=== PATIENT | male | born 1975 | race Caucasian/White ===

== ENCOUNTER 2023-06-17 08:38 | Outpatient (CLI) | payer BC, SELFPAY | END 2023-06-17 08:39 | disposition home or self-care (01) | PROVIDERS: PCP Family Medicine; Visit Provider Family Medicine | DX: I10 Essential (primary) hypertension (principal); Z13.220 Encounter for screening for lipoid disorders | CPT/HCPCS: 80048; 80061 ==

== ENCOUNTER 2023-06-28 14:01 | Outpatient (CLI) | payer BC, SELFPAY ==
[2023-06-28] MEDS: PERFLUTREN LIPID MICROSPHERES 2 ML VIAL IV (15:00)
[2023-06-28 15:07] VITALS: BP 166/90; PULSE 111; RESP 18
--- NOTE | 2023-06-28 16:27 | W.PM.STED ---
Stress Test Note Date Date of test: 06/28/23 Providers Primary care provider: [facility] Stress test physician: Charlie Ayala Stress Test Note Stress test ordered: Stress Echo Indication for test: Chest pain Stress test medicine: Lars Results discussion: Patient presents for the above test after discussion the risks benefits side effects he would like to proceed, cardiac stress test medical history form is reviewed. Pretest EKG shows normal sinus rhythm with a heart rate of 76 and a blood pressure 130\82, is patient is exercised following Raymundo protocol for total time of 10 minutes 31 seconds. Definity is usedd patient did not develop any subjective symptoms of ischemia, exercised a full-time in test is terminated because of fulfillment of protocol on review of the tracing there is no significant ST wave changes suggestive of ischemia. He recovered normally.. Impression: Negative electrographic portion of stress echo. Follow up suggested: Await echo images clinical correlation with these will be needed, patient left this testing facility in excellent condition, there were no complications.
== END 2023-06-28 15:09 | disposition home or self-care (01) ==
LOC: STRESS 14:02
PROVIDERS: PCP Family Medicine; Visit Provider Family Medicine
DX: R07.9 Chest pain, unspecified (principal)
CPT/HCPCS: 93016; 93325; 93351; Q9957

== ENCOUNTER 2023-10-27 09:31 | Outpatient (CLI) | payer BC, SELFPAY | END 2023-10-27 09:32 | disposition home or self-care (01) | PROVIDERS: PCP Family Medicine; Visit Provider Family Medicine | DX: R53.83 Other fatigue (principal) | CPT/HCPCS: 84403; 84443 ==

== ENCOUNTER 2025-01-15 11:54 | Emergency (ER) | payer BC, SELFPAY ==
--- OUTSIDE RECORDS SUMMARY | 2025-01-11 17:32 | XMS_ITS | Encounter Summary ---
Author Organization [facility] Address [address] [place] [address] Care Team Providers Care Thermocouple Tester Name Role Phone Doctor, No Primary Care Provider Unavailabl e Reason for Referral * (Routine) - Open Specialty Diagnoses / Procedures Referred By Contac t Referred To Contact Procedures Splint Adam Chao PA-C [address] [place] [address] Phone: tel: fax: Referral ID Status Reason Start Date Expiration Date Visits Re quested Visits Authorized [id number] Open 01/12/2025 1 1 NTATION AND MOBILITY INSTRUCTOR * (Routine) - Open Specialty Diagnoses / Procedures Referred By Contac t Referred To Contact Adam Chao PA-C [address] [place] [address] Phone: tel: fax: Referral ID Status Reason Start Date Expiration Date Visits Re quested Visits Authorized [id number] Open 01/12/2025 1 1 Question Answer Specify time frame for follow up? 2 Weeks Comments Please call [phone] to make a follow up appointment with [facility] with Dr. Kebede/Imani Mercedes PA-C NTATION AND MOBILITY INSTRUCTOR * (Routine) - Open Specialty Diagnoses / Procedures Referred By Contac t Referred To Contact Procedures Optimal healing and recovery Adam Chao PA-C [address] [place] [address] Phone: tel: fax: Referral ID Status Reason Start Date Expiration Date Visits Re quested Visits Authorized [id number] Open 01/12/2025 1 1 NTATION AND MOBILITY INSTRUCTOR * (Routine) - Open Specialty Diagnoses / Procedures Referred By Contac t Referred To Contact Procedures Ice Adam Chao PA-C [address] [address] Phone: tel: fax: Referral ID Status Reason Start Date Expiration Date Visits Re quested Visits Authorized [id number] Open 01/12/2025 1 1 NTATION AND MOBILITY INSTRUCTOR * (Routine) - Open Specialty Diagnoses / Procedures Referred By Contac t Referred To Contact Procedures Elevate Adam Chao PA-C [address] [place] [address] Phone: tel: fax: Referral ID Status Reason Start Date Expiration Date Visits Re quested Visits Authorized [id number] Open 01/12/2025 1 1 NTATION AND MOBILITY INSTRUCTOR * (Routine) - Open Specialty Diagnoses / Procedures Referred By Contac t Referred To Contact Procedures Weight bearing restrictions Adam Chao PA-C [address] [place] [address] Phone: tel: fax: Referral ID Status Reason Start Date Expiration Date Visits Re quested Visits Authorized [id number] Open 01/12/2025 1 1 NTATION AND MOBILITY INSTRUCTOR * (Routine) - Open Specialty Diagnoses / Procedures Referred By Contac t Referred To Contact Procedures Pain not relieved by medication Adam Chao PA-C [address] [place] [address] Phone: tel: fax: Referral ID Status Reason Start Date Expiration Date Visits Re quested Visits Authorized [id number] Open 01/12/2025 1 1 NTATION AND MOBILITY INSTRUCTOR * (Routine) - Open Specialty Diagnoses / Procedures Referred By Contac t Referred To Contact Procedures Temperature >101.5 (38.6 degrees Celsius) Adam Chao PA-C [address] [place] [address] Phone: tel: fax: Referral ID Status Reason Start Date Expiration Date Visits Re quested Visits Authorized [id number] Open 01/12/2025 1 1 NTATION AND MOBILITY INSTRUCTOR * PT/OT/ST (Routine) - New Request Specialty Diagnoses / Procedures Referred By Contact Referred To Contact Occupational Therapy Diagnoses Closed head injury, initial encounter Fall from ladder, initial encounter Lizzie Gunter PA-C [address] [place] [address] Phone: tel: fax: [facility] [address] [address] Phone: tel: fax: Referral ID Status Reason Start Date Expiration Date Visits Requested Visits Authorized [id number] New Request Specialty Services Required 1 1 Scheduling Instructions You're not required to be seen at the location specified above. Depending on scheduling, convenience, and availability, you may be seen at a different site. Question Answer Reason for Occupational Therapy Evaluation and Treatment NTATION AND MOBILITY INSTRUCTOR * (Routine) - Open Specialty Diagnoses / Procedures Referred By Contac t Referred To Contact Procedures Return to previous diet Lizzie Gunter PA-C [address] [place] [address] Phone: tel: fax: Referral ID Status Reason Start Date Expiration Date Visits Re quested Visits Authorized [id number] Open 01/12/2025 1 1 NTATION AND MOBILITY INSTRUCTOR * (Routine) - Open Specialty Diagnoses / Procedures Referred By Contac t Referred To Contact Procedures Opioid discharge Lizzie Gunter PA-C [address] [place] [address] Phone: tel: fax: Referral ID Status Reason Start Date Expiration Date Visits Re quested Visits Authorized [id number] Open 01/12/2025 1 1 NTATION AND MOBILITY INSTRUCTOR * (Routine) - Open Specialty Diagnoses / Procedures Referred By Contac t Referred To Contact Diagnoses Closed head injury, initial encounter Fall from ladder, initial encounter Procedures DISCHARGE MATERIAL GIVEN TO YOU BY Lizzie Tovar PA-C [address] [place] [address] Phone: tel: fax: Referral ID Status Reason Start Date Expiration Date Visits Re quested Visits Authorized [id number] Open 01/12/2025 1 1 NTATION AND MOBILITY INSTRUCTOR * (Routine) - Open Specialty Diagnoses / Procedures Referred By Contac t Referred To Contact Procedures No driving Lizzie Gunter PA-C [address] [place] [address] Phone: tel: fax: Referral ID Status Reason Start Date Expiration Date Visits Re quested Visits Authorized [id number] Open 01/12/2025 1 1 NTATION AND MOBILITY INSTRUCTOR * (Routine) - Open Specialty Diagnoses / Procedures Referred By Citlaly rodriguez Referred To Contact Lizzie Gunter PA-C [address] [place] [address] Phone: tel: fax: Rangel Kebede MD [address] [place] [address] [address] [place] [address] Phone: tel: fax: Referral ID Status Reason Start Date Expiration Date Visits Re quested Visits Authorized [id number] Open 01/12/2025 1 1 Question Answer Instructions to follow-up provider elbow fx Comments Follow-up with Dr. Kebede in 2 weeks for your elbow fracture. NTATION AND MOBILITY INSTRUCTOR Reason for Visit * Reason Comments Fall * Inpatient Admission Specialty Diagnoses / Procedures Referred By Citlaly t Referred To Contact Diagnoses Elbow fracture, right, closed, initial encounter Referral ID Status Reason Start Date Expiration Date Visits Re quested Visits Authorized [id number] 1 1 Encounter Details Date Type Department Care Team (Late st Contact Info) Description 01/11/2025 5:32 PM ORIENTATION AND MOBILITY INSTRUCTOR - 01/12/2025 4:13 PM ORIENTATION AND MOBILITY INSTRUCTOR Hospital Encounter W6 [address] [facility] [place] [address] Sol Goodman MD [address] [facility] [address] [place], [place] [address] Flo Lawson MD [address] [place], [place] [address] Accidental fall from ladder Discharge Disposition: Returning Home/Self Care Social History Tobacco Use Types Packs/Day Years Used Date Smoking Tobacco: Every Day Cigarettes Smokeless Tobacco: Never Alcohol Use Standard Drinks/Week Comments Yes 0 (1 standard drink = 0.6 oz pur e alcohol) daily Humiliation, Afraid, Rape, and Kick questionnair e Answer Date Recorded Within the last year, have y ou been afraid of your partner or ex-partner? No 01/11/2025 Within the last year, have y ou been humiliated or emotionally abused in other ways by your partner or ex-partner? No Within the last year, have y ou been kicked, hit, slapped, or otherwise physically hurt by your partner or ex-partner? No 01/11/2025 Within the last year, have y ou been raped or forced to have any kind of sexual activity by your partner or ex-partner? No 01/11/2025 Hunger Vital Sign Answer Date Recorded Within the past 12 months, y ou worried that your food would run out before you got the money to buy more. Never true 01/12/20 25 Within the past 12 months, t he food you bought just didn't last and you didn't have money to get more. Never true 01/11/2025 PRAPARE - Transportation Answer Date Re corded In the past 12 months, has l ack of transportation kept you from medical appointments or from getting medications? No 12/23 In the past 12 months, has l ack of transportation kept you from meetings, work, or from getting things needed for daily living? No 01/11/2025 Housing Stability Vital Sign Answer Mac e Recorded In the last 12 months, was t here a time when you were not able to pay the mortgage or rent on time? No 01/11/2025 In the past 12 months, how m any times have you moved where you were living? 1 01/11/2025 At any time in the past 12 m [facility], were you homeless or living in a jail (including now)? No 01/11/2025 [facility] Utilities Answer Date Recorded In the past 12 months has th e electric, gas, oil, or water company threatened to shut off services in your home? No 01/11/2025 Sex and Gender Information Value Date Recorded Sex Assigned at Not on file Legal Sex Male 5:32 PM ORIENTATION AND MOBILITY INSTRUCTOR Gender Identity Not on file Sexual Orientation Not on file documented as of this encounter Last Filed Vital Signs Vital Sign Reading Time Taken Comments Blood Pressure 164/98 01/12/2025 3:26 PM ORIENTATION AND MOBILITY INSTRUCTOR Pulse 108 01/12/2025 3:26 PM ORIENTATION AND MOBILITY INSTRUCTOR Temperature 36.7 C (98 F) 01/12/2025 3:26 PM ORIENTATION AND MOBILITY INSTRUCTOR Respiratory Rate 20 01/12/2025 3:26 PM ORIENTATION AND MOBILITY INSTRUCTOR Oxygen Saturation 94% 01/12/2025 3:26 PM ORIENTATION AND MOBILITY INSTRUCTOR Inhaled Oxygen Concentration - - Weight 94 kg (207 lb 3.7 oz) 01/12/2025 5:56 AM ORIENTATION AND MOBILITY INSTRUCTOR Height 175.3 cm (5' 9) 01/12/2025 5:56 AM ORIENTATION AND MOBILITY INSTRUCTOR Body Mass Index 30.6 01/12/2025 5:56 AM ORIENTATION AND MOBILITY INSTRUCTOR documented in this encounter Discharge Summaries * Lizzie Gunter PA-C - 01/12/2025 4:13 PM CST HOSPITAL DISCHARGE SUMMARY Patient Name: Simeon Davidson Date of : 1975 Attending Provider: Flo Lawson MD Admission Date: 01/11/2025 Discharge Date: 01/12/2025 He will be discharged to home. DISCHARGE DIAGNOSES: Principal Problem: Accidental fall from ladder Active Problems: Elbow fracture, right, closed, initial encounter Primary hypertension Mild TBI (HCC) Scalp laceration, initial encounter DISCHARGE MEDICATIONS: Medication List START taking these medications acetaminophen 325 mg tablet Commonly known as: TYLENOL Take 3 tablets (975 mg) by mouth every 6 (six) hours. methocarbamoL 500 mg tablet Commonly known as: ROBAXIN Take 1-2 tablets (500-1,000 mg) by mouth every 6 (six) hours as needed. oxyCODONE (immediate release) 5 mg tablet Commonly known as: ROXICODONE Take 1 tablet (5 mg) by mouth every 6 (six) hours as needed. CONTINUE taking these medications K2 PLUS D3 ORAL testosterone cypionate 200 mg/mL Syringe UNKNOWN MEDICATIONS UNKNOWN MEDICATIONS Where to Get Your Medications These medications were sent to [facility] [place] [address] [place] [address] [facility] [address] Hours: Mon-Fri: 7:30AM-6PM / Sat: 9AM-3PM / Sun: 9AM-3PM methocarbamoL 500 mg tablet oxyCODONE (immediate release) 5 mg tablet Information about where to get these medications is not yet available Ask your nurse or doctor about these medications acetaminophen 325 mg tablet FOLLOW UP: Instructions to follow up provider: Rangel Kebede MD Instructions to follow-up provider: elbow fx Follow-up with Dr. Kebede in 2 weeks for your elbow fracture. [facility], [facility] Reason for Occupational Therapy: Evaluation and Treatment You're not required to be seen at the location specified above. Depending on scheduling, convenience, and availability, you may be seen at a different site. PENDING TEST RESULTS: N/A HOSPITAL COURSE: Simeon Davidson is a 49 year-old male with past medical history of hypertension (no meds) who was admitted to [facility] on 01/11/2025 following fall from ladder while puttingup [place] lights sustaining open right olecranon fracture as well as closed head injury. Admitted for orthopedic stabilization, pain conttol and concussion monitoring. No new injuries or complications were identified during his stay. Patient was assessed by physical and occupational therapies and deemed safe to discharge home with support. On day of discharge, patient was tolerating a regular diet, voiding without issue, pain well controlled on oral analgesics, and vitally stable. Patient education and return precautions provided. The patient was discharged in stable condition on 01/12 with instructions to follow up as outlined above. Please see below for detailed hospital course by problem: Accidental fall from ladder Closed head injury Mild TBI CT head negative for intracranial bleed, C/T/L-spine negative for acute fracture. Monitored for post-concussive syndrome. Symptomatic control. Tertiary exam completed. PT/OT. Open Right Olecranon fracture Orthopedic Surgery following, status post I&D and ORIF on 01/12. NWB to RULopez, splint immobilization x 2 weeks. PT/OT. Multimodal pain control. DVT ppx: N/A. Follow-up in 2 weeks. Acute pain due to trauma A multimodal plan that includes acetaminophen can provide effective pain relief. These targets different mechanisms in the central and/or peripheral nervous system and helps reduce or even eliminate the need for opioids. Can provide more effective pain relief vs single-modality plans. Lidoderm patches, Tylenol 1000 mg every 6 hours, Methocarbamol 500-1000 mg every 6 hours, Oxycodone5 mg every 4 hours as needed for Breakthrough Pain Scalp Laceration Repaired in ED on 01/11. Sutures to be removed ~5-7 days (01/18). Bacitracin prn. Past Medical History: Hypertension - no STRING CUTTER medications PROCEDURES: Orthopedic surgery 01/12/2025 1. Irrigation and debridement of open fracture, right olecranon, deepest layer is bone and is excisional 2. Open reduction internal fixation right olecranon fracture COMPLICATIONS IN HOSPITAL: N/A DISCHARGE EXAM: BP 133/78 Pulse 94 Temp 98.2 ??F (36.8 ??C) Resp 17 Ht 5' 9 (1.753 m) Wt 94 kg (207 lb 3.7 oz) SpO2 98% BMI 30.60 kg/m?? Constitutional: well nourished 49 yo male seen resting in bed, no acute distress Neurologic: alert and oriented to person, place, situation and time, GCS 15, Cranial Nerves 2-12 grossly intact, Speech: normal, Plantar-Dorsiflexion: Intact, sensation intact to light touch in all extremities HEENT: Head: atraumatic, Eyes: normal lids and conjuctivae - PER - EOMI Face: Symmetrical Neck: Full ROM, nontender spine to palpation Chest: symmetrical, nontender chest wall to palpation Pulmonary: effort normal on room air, lung sounds clear to auscultation bilaterally Cardiovascular: Heart: regular rhythm, Rate: normal, Peripheral Vascular: dorsalis pedis/radial 2+ Gastrointestinal: Abdominal: soft, nontender to palpation, nondistended Musculoskeletal: RUE: post-op dressing in place, sensation intact above and below, wiggles all digits, hand well perfused, visible compartments remain soft LUE: no deformities, full ROM, strength +5/5, nontender throughout to palpation. Pelvis: nontender bilaterally. RLE: no deformities, full ROM, strength +5/5, nontender throughout to palpation. LLE: no deformities, full ROM, strength +5/5, nontender throughout to palpation. Back: Nontender thoracic and lumbar spines to palpation Integumentary: warm and dry Psych: appropriate mood and affect IMAGING: XR C ARM EXTREMITY RT Final Result impression: 2 images saved. Fluoroscopy time 36 seconds. Imaging guidance provided during open reduction internal fixation surgery along the proximal ulna CT EXTREM UPPER RT W/O CON Final Result IMPRESSION: 1. Comminuted, displaced fracture of the olecranon with large elbow joint effusion. Overlying soft tissue injury with scattered soft tissue gas. No intra- articular gas. 2. Advanced degenerative changes of the elbow. REPORT SIGNED BY DR. Gentry Mayorga CT Trauma Chest / ABD / Pelvis W Contrast Final Result IMPRESSION: 1. Findings consistent with a mild superficial contusion over the mid to lower right anterior abdominal wall with mild subcutaneous edema in this region. No discrete hematoma. 2. Otherwise, no evidence of thoracic, abdominal or pelvic acute traumatic injury. 3. Mild colonic diverticulosis without evidence of acute diverticulitis. REPORT SIGNED BY DR. Singh Vergara CT Reconstruction Spine Lumbar Final Result IMPRESSION: 1. No evidence of a fracture, subluxation or dislocation. 2. Severe degenerative changes at L5-S1. REPORT SIGNED BY DR. Singh Vergara CT Reconstruction Spine Thoracic Final Result IMPRESSION: 1. No evidence of an acute fracture, subluxation or dislocation. 2. Multilevel degenerative changes of the thoracic spine. 3. Old healed left lateral rib fractures. REPORT SIGNED BY DR. SINGH VERGARA XRAY TIBIA FIBULA LEFT Final Result IMPRESSION: Intact left tibia and fibula. REPORT SIGNED BY DR. Austen Gage XRAY WRIST LEFT Final Result IMPRESSION: No definite osseous injuries are seen at the left wrist. REPORT SIGNED BY DR. Austen Gage XRAY ELBOW RIGHT Final Result IMPRESSION: Probable acute, nondisplaced fracture involving the proximal aspect of the olecranon process. REPORT SIGNED BY DR. Austen Gage CT Head W/O Contrast W/O 3D Final Result IMPRESSION: Right frontal scalp soft tissue swelling and laceration. No skull fracture seen. No intracranial bleed. REPORT SIGNED BY DR. Ambrosio Willard CT Spine Cervical W/O Contrast Final Result IMPRESSION: No evidence of cervical spine fracture or subluxation. REPORT SIGNED BY DR. Austen Gage LABS: Recent Labs 01/11/25 1742 HEMOGLOBIN 18.0 PLATELETCT 273 Recent Labs 01/11/25 1739 01/12/25 0502 SODIUM 147* 142 POTASSIUM 4.4 4.3 CHLORIDE -- 112* CARBONDIOXI -- 23 ANIONGAP -- 7.0 GLUCOSE 153* 87 BUNUREANRO -- 12 CREATININE 1.6* 1.41* CALCIUMSERUM -- 8.7 ESTGFRMDRD -- >60.00 Time: over 30 minutes Lizzie Gunter PA-C Trauma & Acute Care Surgery Cosigned by Meka Paige MD at 01/14/2025 9:18 AM ORIENTATION AND MOBILITY INSTRUCTOR NTATION AND MOBILITY INSTRUCTOR NTATION AND MOBILITY INSTRUCTOR documented in this encounter Medications at Time of Discharge acetaminophen (TYLENOL) 325 mg oral tablet Take 3 tablets (975 mg) by mouth every 6 (six) hours. 01/12/2025 methocarbamoL (ROBAXIN) 500 mg oral tablet Take 1-2 tablets (500-1,000 mg) by mouth every 6 (six) hours as needed. 60 tablet 01/13/2025 9:15 AM ORIENTATION AND MOBILITY INSTRUCTOR 01/12/2025 oxyCODONE, immediate release, (ROXICODONE) 5 mg oral tablet Take 1 tablet (5 mg) by mouth every 6 (six) hours as needed. 20 tablet 01/13/2025 9:15 AM ORIENTATION AND MOBILITY INSTRUCTOR 01/12/2025 senna-docusate (SENNA-S) 8.6-50 mg oral tablet Take 1 tablet by mouth once daily. 10 tablet 01/13/2025 9:15 AM ORIENTATION AND MOBILITY INSTRUCTOR 01/12/2025 testosterone cypionate 200 mg/mL IM Syringe Inject 0.6 mL into the muscle two times per week. Tuesday and UNKNOWN MEDICATIONS Take 1 tablet by mouth once daily. Pure Saffron Supplement UNKNOWN MEDICATIONS Take 1 tablet by mouth once daily. Vitamins A,D,K vitamin D3/vitamin K2, MK4, (K2 PLUS D3 ORAL) Take 1 tablet by mouth once daily. Also contains zinc documented as of this encounter Progress Notes * Nathalie Norton RN - 01/12/2025 4:13 PM CST Simeon Davidson 1975 [id number] P: Discharge A: Discharged ambulatory to home at 1613 escorted by spouse I: Discharge information and arrangements included: review of written discharge instructions, review of purpose and side effects of new medication, prescriptions sent with patient, belongings list completed. R:Patient, significant Other expressed understanding of information. NTATION AND MOBILITY INSTRUCTOR * Lizzie Gunter PA-C - 01/12/2025 7:39 AM CST TRAUMA TERTIARY EXAM NOTE LOS: 1 day Patient seen on 01/12/2025 at 7:39 AM. CC/HPI: Accidental fall from ladder INTERVAL HISTORY: Simeon seen post-operatively. Pain controlled. No further injuries upon tertiary exam. He is hoping to discharge home today to see his grandkids. He denies chest pain, shortness of breath, abdominal pain or dysuria. REVIEW OF SYSTEMS: A comprehensive review of systems was negative except for items noted in the interval history. PAST MEDICAL HISTORY: No Change STRING CUTTER MEDICATIONS: Essential STRING CUTTER meds restarted CURRENT MEDS: Current Facility-Administered Medications: saline FLUSH syringe 10 mL, 10 mL, Intravenous, Q8H saline FLUSH syringe 10 mL, 10 mL, Intravenous, PRN [Transfer Hold] saline FLUSH syringe 10 mL, 10 mL, Intravenous, Q8H [Transfer Hold] saline FLUSH syringe 10 mL, 10 mL, Intravenous, PRN [Transfer Hold] acetaminophen (TYLENOL) tablet 650 mg, 650 mg, oral, Q6H D50W IV syringe 25-50 mL, 25-50 mL, Intravenous, PRN [Transfer Hold] HYDROmorphone (Dilaudid) syringe 0.2 mg, 0.2 mg, Intravenous, Q2H PRN [Transfer Hold] HYDROmorphone (DILAUDID) tablet 2 mg, 2 mg, oral, Q4H PRN [Transfer Hold] ketorolac (ToradoL) injection 30 mg, 30 mg, Intravenous, Q6H PRN [Transfer Hold] lidocaine (LMX-4) topical cream 1 Application, 1 Application, topical, PRN [Transfer Hold] lidocaine 1% injection (conc: 10 mg/mL) 0.1-0.3 mL, 0.1-0.3 mL, Intradermal, PRN [Transfer Hold] methocarbamoL (ROBAXIN) tablet 500 mg, 500 mg, oral, QID [Transfer Hold] metoprolol (LOPRESSOR) injection 5 mg, 5 mg, Intravenous, Q6H [Transfer Hold] nicotine (NICOTROL) 14 mg/24 hr patch 1 patch, 1 patch, Transdermal, DAILY [Transfer Hold] ondansetron (Zofran) injection 4 mg, 4 mg, Intravenous, Q12H PRN [Transfer Hold] saline with benzyl alcohol injection 0.1-0.3 mL, 0.1-0.3 mL, Intradermal, PRN [Transfer Hold] sodium chloride 0.9 % IV solution, , Intravenous, CONTINUOUS TERTIARY EXAMINATION: Temp (24hrs), Av ??F (36.7 ??C), Min:97.4 ??F (36.3 ??C), Max:99.1 ??F (37.3 ??C) BP (!) 178/93 Pulse 88 Temp 99.1 ??F (37.3 ??C) Resp 15 Ht 5' 9 (1.753 m) Wt 94 kg (207 lb 3.7 oz) SpO2 95% BMI 30.60 kg/m?? Patient Vitals for the past 72 hrs: Weight 01/12/25 0556 94 kg (207 lb 3.7 oz) 01/11/25 2152 94 kg (207 lb 3.7 oz) Constitutional: well nourished 49 yo male seen resting in bed, no acute distress Neurologic: alert and oriented to person, place, situation and time, GCS 15, Cranial Nerves 2-12 grossly intact, Speech: normal, Plantar-Dorsiflexion: Intact, sensation intact to light touch in all extremities HEENT: Head: atraumatic, Eyes: normal lids and conjuctivae - PER - EOMI Face: Symmetrical Neck: Full ROM, nontender spine to palpation Chest: symmetrical, nontender chest wall to palpation Pulmonary: effort normal on room air, lung sounds clear to auscultation bilaterally Cardiovascular: Heart: regular rhythm, Rate: normal, Peripheral Vascular: dorsalis pedis/radial 2+ Gastrointestinal: Abdominal: soft, nontender to palpation, nondistended Musculoskeletal: RUE: post-op dressing in place, sensation intact above and below, wiggles all digits, hand well perfused, visible compartments remain soft LUE: no deformities, full ROM, strength +5/5, nontender throughout to palpation. Pelvis: nontender bilaterally. RLE: no deformities, full ROM, strength +5/5, nontender throughout to palpation. LLE: no deformities, full ROM, strength +5/5, nontender throughout to palpation. Back: Nontender thoracic and lumbar spines to palpation Integumentary: warm and dry Psych: appropriate mood and affect Wound: Traumatic Laceration Right Face;Forehead (Active) First Observed/Origin Date/First Observed/Origin Time: 01/11/252149 Primary Wound Type: Traumatic Trauma/Injury Type: Laceration Orientation: Right Location: Face;Forehead Wound: Traumatic Abrasion Anterior;Left Hand (Active) First Observed/Origin Date/First Observed/Origin Time: 01/11/252151 Primary Wound Type: Traumatic Trauma/Injury Type: Abrasion Orientation: Anterior;Left Location: Hand Wound: Traumatic Abrasion Right Dill (Active) First Observed/Origin Date/First Observed/Origin Time: 01/11/252151 Primary Wound Type: Traumatic Trauma/Injury Type: Abrasion Orientation: Right Location: Dill Wound: Traumatic Abrasion Left;Posterior Finger (Active) First Observed/Origin Date/First Observed/Origin Time: 01/11/252151 Primary Wound Type: Traumatic Trauma/Injury Type: Abrasion Orientation: Left;Posterior Location: Finger Wound: Traumatic Abrasion Left Dill (Active) First Observed/Origin Date/First Observed/Origin Time: 01/11/252154 Primary Wound Type: Traumatic Trauma/Injury Type: Abrasion Orientation: Left Location: Dill Intake/Output Summary (Last 24 hours) at 01/12/2025 0739 Last data filed at 01/12/2025 0625 Gross per 24 hour Intake 926.56 ml Output -- Net 926.56 ml RECENT LABS: Recent Labs 01/11/25 1742 HEMOGLOBIN 18.0 PLATELETCT 273 Recent Labs 01/11/25 1739 01/12/25 0502 SODIUM 147* 142 POTASSIUM 4.4 4.3 CHLORIDE -- 112* CARBONDIOXI -- 23 ANIONGAP -- 7.0 GLUCOSE 153* 87 BUNUREANRO -- 12 CREATININE 1.6* 1.41* CALCIUMSERUM -- 8.7 ESTGFRMDRD -- >60.00 IMAGING: CT EXTREM UPPER RT W/O CON Final Result IMPRESSION: 1. Comminuted, displaced fracture of the olecranon with large elbow joint effusion. Overlying soft tissue injury with scattered soft tissue gas. No intra- articular gas. 2. Advanced degenerative changes of the elbow. REPORT SIGNED BY DR. Gentry Mayorga CT Trauma Chest / ABD / Pelvis W Contrast Final Result IMPRESSION: 1. Findings consistent with a mild superficial contusion over the mid to lower right anterior abdominal wall with mild subcutaneous edema in this region. No discrete hematoma. 2. Otherwise, no evidence of thoracic, abdominal or pelvic acute traumatic injury. 3. Mild colonic diverticulosis without evidence of acute diverticulitis. REPORT SIGNED BY DR. Singh Vergara CT Reconstruction Spine Lumbar Final Result IMPRESSION: 1. No evidence of a fracture, subluxation or dislocation. 2. Severe degenerative changes at L5-S1. REPORT SIGNED BY DR. Singh Vergara CT Reconstruction Spine Thoracic Final Result IMPRESSION: 1. No evidence of an acute fracture, subluxation or dislocation. 2. Multilevel degenerative changes of the thoracic spine. 3. Old healed left lateral rib fractures. REPORT SIGNED BY DR. SINGH VERGARA XRAY TIBIA FIBULA LEFT Final Result IMPRESSION: Intact left tibia and fibula. REPORT SIGNED BY DR. Austen Gage XRAY WRIST LEFT Final Result IMPRESSION: No definite osseous injuries are seen at the left wrist. REPORT SIGNED BY DR. Austen Gage XRAY ELBOW RIGHT Final Result IMPRESSION: Probable acute, nondisplaced fracture involving the proximal aspect of the olecranon process. REPORT SIGNED BY DR. Austen Gage CT Head W/O Contrast W/O 3D Final Result IMPRESSION: Right frontal scalp soft tissue swelling and laceration. No skull fracture seen. No intracranial bleed. REPORT SIGNED BY DR. Ambrosio Willard CT Spine Cervical W/O Contrast Final Result IMPRESSION: No evidence of cervical spine fracture or subluxation. REPORT SIGNED BY DR. Austen Gage ETOH SCREENING: ETOH Level Alcohol (ETOH), Plasma Collection Time: 01/11/25 5:42 PM Result Value ALCOHOL (ETOH), PLASMA <3 No data recorded Do you drink alcohol? yes AUDIT-C Questionnaire 1. How often do you have a drink containing alcohol? 2-4 times a month = 2 points 2. How many standard drinks containing alcohol do you have on a typical day? 1 or 2 = 0 points 3. How often do you have six or more drinks on one occasion? Never = 0 points Total: 2 (Positive Screen: Women >= 3, Men >= 4 (Note: if all points come from question 1 then this isconsidered a NEG screen) SBIRT complete Acute Stress Disorder screening using PC-PTSD-5 Since the incident have you: Had nightmares about the event(s) or thoughts about the event(s) when you did not want to? no Tried hard not to think about the event(s) or went out of your way to avoid situations that reminded you of the event(s)? no Been constantly on guard, watchful, or easily startled? no Hume numb or detached from people, activities, or your surroundings? no Hume guilty or unable to stop blaming yourself or others for the event(s) or any problems the events may have caused? no (Positive screening: YES to any question(s), recommend psychology consult. Negative screening: NO to all questions) Education was provided. Mental Health Services consult negative screen ADDITIONAL COMMENTS: I reviewed the patient's new clinical labs and imaging test results as included in this note. I discussed the patient's care with bedside RN Nathalie at 1000, Social Work, W Kacie charge nurse. I have seen this patient and discussed my findings and exam with Dr. Paige. The assessment and plan is based on our joint decision making. ASSESSMENT/PLAN: Simeon Davidson is a 49 year-old male with past medical history of hypertension (no meds) who was admitted to [facility] on 01/11/2025 following fall from ladder while puttingup [employer] lights sustaining open right olecranon fracture as well as closed head injury. Admitted for orthopedic stabilization, pain conttol and concussion monitoring. Accidental fall from ladder Closed head injury Mild TBI CT head negative for intracranial bleed, C/T/L-spine negative for acute fracture. - Monitor for post-concussive syndrome - Symptomatic control - Tertiary exam completed - PT/OT Open Right Olecranon fracture - Orthopedic Surgery following, status post I&D and ORIF on 01/12 - NWB to ALEX, splint immobilization x 2 weeks - PT/OT - Multimodal pain control - DVT ppx: N/A - Follow-up in 2 weeks Acute pain due to trauma A multimodal plan that includes acetaminophen can provide effective pain relief. These targets different mechanisms in the central and/or peripheral nervous system and helps reduce or even eliminate the need for opioids. Can provide more effective pain relief vs single-modality plans. - Lidoderm patches - Tylenol 1000 mg every 6 hours - Methocarbamol 500-1000 mg every 6 hours - Oxycodone 5 mg every 4 hours as needed for Breakthrough Pain Scalp Laceration Repaired in ED on 01/11 - Sutures to be removed ~5-7 days (01/18) - Bacitracin prn Past Medical History: Hypertension - no STRING CUTTER medications Lines: PIV Fluids/Electrolytes/Nutrition: NPO Ulcer Prophylaxis: None indicated Bowel Medications: Senna-S and Miralax LBM: No data recorded Cardoza: No DVT Prophylaxis: Mechanical, Mobilize Restraints: Not indicated Wounds/Skin Care: Local and preventative cares per Pressure Injury Prevention nursing protocols Antibiotics: perioperative Family Communication: Patient denied need for Trauma to call update to family. All questions were answered to best of my ability. No concerns at that time. Incidental Findings: N/A Follow up tertiary exam: Not required, patient responsive and able to participate in clinical exam Disposition: Criteria for Discharge: specalist clearance, pain control on PO, tolerating diet, therapy recommendations Post Hospital Plan: probably home later today vs tomorrow 01/13 am Lizzie Gunter PA-C Trauma & Acute Care Surgery NTATION AND MOBILITY INSTRUCTOR * Venkat Dotson RN - 01/12/2025 3:21 AM CST Med-Surg Care Progression Note Type: Shift to shift summary Length of stay: 1 days Code Status: Full Code Primary Problem: Fall from a lader, R face lac, R Elbow fx Summary: F- Feeding & Fluids: tolerating regular diet, thin liquids. NPO since midnight . Going to OR [id number] with ortho. A- Analgesic & Anticoagulation: Comfort Goal: Numeric, Verbal, Faces: 3 Analgesic Robaxin given x1. Declined scheduled tylenol, pt reported tolerable pain and does not like taking pain meds unless he is in severe pain. Anticoagulation/DVT prevention & plan SCDs S- Skin: Total Coy Score: 19: Lac to R scalp sutured in ED, dressing applied. Abrasions to bilatlower extremities and L hand-see pictures. Pt is able to reposition self in bed. T- Telemetry: No tele. Has scheduled IV metoprolol for HTN. E- Emotional & Neuro: Participating in cares Neuro Alert and Oriented R- Respiratory: On room air, on continuous pulseoximetry per orders. H- Head OUT of Bed & Activity: Activate Fall Alert? (Enter 1 or 0): 1 Ambulating with SBA with RUE sling, U- Urologic/bowel: No data recorded voiding in the toilet without difficult. G- Glycemic Control: Not applicable T- Treatment: Pain control, OR in am for ORIF of R elbow. I- Invasive Devices: PIV x2 D- Discharge: TBD Venkat Dotson, RN NTATION AND MOBILITY INSTRUCTOR NTATION AND MOBILITY INSTRUCTOR * Venkat Dotson RN - 01/11/2025 9:55 PM CST P. Admission A. Condition on Admit: alert. Patient/Family Concerns: Patient expressed concern about pain relief . I. Initial Interventions included: administered medication for pain. Orientation to Unit: Patient, spouse, friend oriented to how to call for help, name of assigned intensive care ambulance paramedic, Patient Information booklet, initial physician orders, hourly rounding procedures, belongings checklist, unit and plan of care. R. Patient, spouse, friend expressed understanding of information.. NTATION AND MOBILITY INSTRUCTOR documented in this encounter H&P Notes * Flo Lawson MD - 01/11/2025 6:00 PM CST TRAUMA ADMISSION HISTORY AND PHYSICAL Patient Name: Simeon Davidson Address: No address on file. Age:49 y.o. Sex: male Admission Date/Time: 01/11/2025 5:32 PM Admitting provider: No admitting provider for patient encounter. Hospital Attending Physician: Sol Goodman MD Primary Care Provider: No primary care provider on file. Informant: patient and outpatient record Patient seen on 01/11/2025 at 545 pm. 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 Did not stop at outside facility we had advance notificationfor partial trauma activation. Hemodynamically hypertensive en route treated with IV narcotic for pain control of right elbow. Amnestic to event remembers going to shed to pull out ladder. He thinks it is Tuesday (Tuesday) was planing on putting up [place] lights. Does not remember eating today or last meal. Asks not to have any more pain medication. By report fall from 8 feet, very confused at first then more clear as time went on. Left wrist in splint due to deformity at scene. Denies drinking or smoking. Right wrist splint and wrapping Taken down I do not see laceration , or gross abnormality on quick exam. Right elbow pain. Mid upper back pain. Patient comes in full spine precautions. Denies neck pain,, double vision , N/ V headache. Laceration forehead a scene rendered hemostatic with wrapping. Due to confusion and lucid interval concern for epidural so expedited trauma primary secondary survey done and taken emergently to CT scan I accompanied patient as at this point at risk for life threatening deterioration , intracranial bleed suspected due to 8 foot fall , head lacerationconfusion , altered mental status at scene, improved ., but amnestic. On taking down wrap ancef given for deep laceration. REVIEW OF SYSTEMS GENERAL: no fevers or chills, awake and interactive HEENT: no malocclusion, no changes with vision, no difficulty swallowing No neck pain, forehead pain CARDIOVASCULAR: denies chest pain, denies angina or palpitations, denies dyspnea on exertion PULMONARY: no SOB, no history of asthma, non-smoker MSK- upper back pain, right elbow pain GI: denies abdominal pain : no dysuria, hematuria SKIN: forehead laceration hemostatic with wrap. HEME: no history of blood product transfusions, no clotting or bleeding disorders ENDOCRINE: no history of diabetes or thyroid problems NEURO: no history of seizures, no headaches, no neurologic disorders Last Oral Intake: Unknown Last Tetanus: Tetanus status unknown to the patient given update PAST MEDICAL HISTORY Hypertension not treated PAST SURGICAL HISTORY NOS drainage abscess MEDICATIONS denies ALLERGIES Patient has no known allergies. FAMILY HISTORY Patient denies family history of bleeding or clotting disorder, no known complications from anesthesia SOCIAL HISTORY Social History Socioeconomic History Marital status: Not on file Spouse name: Not on file Number of children: Not on file Years of education: Not on file Highest education level: Not on file Occupational History Not on file Tobacco Use Smoking status: Not on file Smokeless tobacco: Not on file Substance and Sexual Activity Alcohol use: Not on file Drug use: Not on file Sexual activity: Not on file Other Topics Concern Not on file Social History Narrative Not on file Social Drivers of Health Food Insecurity: Not on file Transportation Needs: Not on file Intimate Partner Violence: Not on file Housing Stability: Not on file PHYSICAL EXAM PHYSICAL EXAM BP (!) 210/126 Pulse (!) 108 Temp 97.7 ??F (36.5 ??C) Resp (!) 28 SpO2 94% There is no height or weight on file to calculate BMI. GCS 15 AIRWAY patient controlled GENERAL: appears healthy, NAD , able to complete sentences without catching breath LUNGS: No dyspnea, clear bilat CV: sinus , regular rate PULSES: radial pulses strong and symmetric, Posterior tibialis palpable and symmetric Capillary refill < 2 seconds in nailbeds of fingers HEENT:3.5 cm laceration cruciate with second 2 cm and third 3 cm laceration forehead, no Maria's sign, No [place] eyes, no scleral icterus, PERRL slightly constricted from EMS narcotic presumably, mucosa moist, no dental injury noted, no tongue laceration NECK: Cervical collar inplace, trachea midline, no subcutaneous emphysema- after CT scan collar removed full range of motion without pain ABDOMEN: Non distended, soft, non-tender, no peritoneal signs, no hernias, no surgical scars, no bruising LOGROLL with C spine precautions, tender upper back T8 region, not soft no bruising no step off EXTREMITIES: right elbow slightly mabel position of comfort very tender, in pain without palpation, denies want of narcotic SKIN: warm and dry, no jaundice, no rashes NEURO: Cranial nerves II-XII grossly intact, alert and oriented, hand grasp is strong and symmetric, plantar flexion and plantar dorsiflexion intact and stong bilaterally PSYCH: appropriate mood and affect Laboratory Data Results for orders placed or performed during the hospital encounter of 01/11/25 (from the past 24 hours) POCT VBG/Na/K/Glu Result Value Ref Range POCT pH Venous 7.33 7.30 - 7.40 POCT pCO2 Venous 47 36 - 51 mm Hg POCT pO2 Venous 49 (H) 35 - 45 mm Hg POCT HCO3 VENOUS 25 22 - 29 mmol/L POCT BASE EXCESS -2.0 -3.0 - 2.0 mmol/L POCT CSO2 81.0 (L) 92.0 - 98.0 %SAT POCT cTCO2 26.0 mmol/L POCT SODIUM 147 (H) 133 - 144 mmol/L POCT POTASSIUM 4.4 3.5 - 5.0 mmol/L POCT Glucose 153 (H) 60 - 100 mg/dL POCT Ca, Ionized Result Value Ref Range POCT CA IONIZED 1.31 1.13 - 1.32 mmol/L POCT Lac Result Value Ref Range POCT LACTIC ACID 1.1 0.7 - 2.1 mmol/L POCT CREATININE Result Value Ref Range POCT Creatinine 1.6 (H) 0.7 - 1.3 mg/dL POCT Chloride Result Value Ref Range POCT CHLORIDE 108 99 - 111 mmol/L Hemoglobin Result Value Ref Range Hemoglobin 18.0 14.0 - 18.0 gm/dL Platelet Count Result Value Ref Range Platelet Count 273 150 - 400 K/UL Additional Comments: Went with patient to CT scan Ct head no extra-axial blood no skull fracture' C spine no fracture Great vessels without injury I see no fracture over spine where tender, no acute rib fracture agree with official read 1. No evidence of an acute fracture, subluxation or dislocation. 2. Multilevel degenerative changes of the thoracic spine. 3. Old healed left lateral rib fractures. No solid organ injury, bowel edema on findings worrisome for major abdominal or pelvic trauma Xray Right Elbow; nondisplaced fracture extending through the posterior/proximal aspect of the olecranonprocess Left wrist - no fracture seen Left tibia and fibula without fracture ASSESSMENT/DIFFERENTIAL DIAGNOSIS Mild TBI concussion from fall hitting head, 8 feet from ladder Change in mental status improving , amnestic to event Scalp laceration - this will be washed out and treated with ancef and tetanus update and plan to close in ED Right elbow fracture Called mail caller orthopedist Dr Kebede, reviewed images old changes likely from wrestling injury bad dislocation remote and acute fracture plan for admission an operative evaluation with CT scan not clearly needs operative intervention on plain films, Dr. Kebede to coordinate CT I will admit p atient for observation NPO after MN Hypertension , pain control multimodal, beta keisha PLAN Admit to the Trauma Service to Floor CT to evaluate right elbow care plan It is expected the patient will need to be admitted for two nights given injuries sustained and ongoing evaluation and treatment plans. DVT Prophylaxis: mechanical Ulcer Prophylaxis: None indicated Restraints: Not indicated Pain Management: Narcotics - Oral, NSAIDS, Other Tylenol, Toradol Sedation: none Warming Techniques: passive Family Conference: family not available Update Called To: NA scene run Time: 75 minutes spent on patient evaluation, explaining injuries and plan and coordinating cares This patient was evaluated in the stabilization room as a tier 2 trauma activation. While the emergency room physician monitored the airway and performed the primary survey, I as the trauma surgeon guided the resuscitation, assessed the need for emergent and potentially life-saving procedures, including the possibility of proceeding directly to the operating room. Patient was high risk for intracranial bleed due to presentation and I remained with patient until that threat which is potentially life-threatening was fully assessed, including to imaging room. My critical care time also included determination of imaging and ancillary studies, medication management, appropriate consultation withsurgical specialty services, and frequent reassessment of the patient for response to interventionsas well as for the possibility of sudden, clinically significant deterioration in the patient's condition. Flo Lawson MD NTATION AND MOBILITY INSTRUCTOR documented in this encounter Consult Notes * Rangel Kebede MD - 01/12/2025 9:29 AM CSTAssociated Order(s): CONSULT ORTHOPEDIC SURGERY ORTHOPEDIC SURGERY CONSULT Patient Name: Simeon Davidson Address: [address] [place] [address] Age: 49 y.o. Sex: male Admission Date/Time: 01/11/2025 5:32 PM Primary Care Provider: Doctor, Deisi Informant: patient CHIEF COMPLAINT: Right elbow pain, fall from ladder HPI: This is a 49-year-old man who presents to the hospital after a fall from a ladder while he was putting up [employer] lights. He is about 8 to 10 feet up. He complains mostly of right elbow pain but also some left wrist pain as well. He is found to have open fracture of his right olecranon. He was evaluated and admitted by the trauma service. He was given Ancef and tetanus. The elbow was splinted. His pain is controlled at rest. He has no numbness or tingling. He is right-hand dominant. 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 PAST MEDICAL HISTORY: No past medical history on file. PAST SURGICAL HISTORY: No past surgical history on file. PRIOR TO ADMISSION MEDICATIONS: Prior to Admission Medications Prescriptions Last Dose Informant Patient Reported? Taking? UNKNOWN MEDICATIONS 01/11/2025 Morning Family Yes Yes Sig: Take 1 tablet by mouth once daily. Pure Saffron Supplement UNKNOWN MEDICATIONS 01/11/2025 Morning Family Yes Yes Sig: Take 1 tablet by mouth once daily. Vitamins A,D,K testosterone cypionate 200 mg/mL IM Syringe 01/10/2025 Family Yes Yes Sig: Inject 0.6 mL into the muscle two times per week. Tuesday and vitamin D3/vitamin K2, MK4, (K2 PLUS D3 ORAL) 01/11/2025 Morning Family Yes Yes Sig: Take 1 tablet by mouth once daily. Also contains zinc Facility-Administered Medications: None ALLERGIES: Patient has no known allergies. FAMILY HISTORY: No family history on file. SOCIAL HISTORY: Social History Socioeconomic History Marital status: Spouse name: Not on file Number of children: Not on file Years of education: Not on file Highest education level: Not on file Occupational History Not on file Tobacco Use Smoking status: Every Day Types: Cigarettes Smokeless tobacco: Never Substance and Sexual Activity Alcohol use: Yes Comment: daily Drug use: Not Currently Sexual activity: Not on file Other Topics Concern Not on file Social History Narrative Not on file Social Drivers of Health Food Insecurity: No Food Insecurity (01/11/2025) Hunger Vital Sign Worried About Running Out of Food in the Last Year: Never true Ran Out of Food in the Last Year: Never true Transportation Needs: No Transportation Needs (01/11/2025) PRAPARE - Transportation Lack of Transportation (Medical): No Lack of Transportation (Non-Medical): No Intimate Partner Violence: Not At Risk (01/11/2025) Humiliation, Afraid, Rape, and Kick questionnaire Fear of Current or Ex-Partner: No Emotionally Abused: No Physically Abused: No Sexually Abused: No Housing Stability: Low Risk (01/11/2025) Housing Stability Vital Sign Unable to Pay for Housing in the Last Year: No Number of Times Moved in the Last Year: 1 Homeless in the Last Year: No REVIEW OF SYSTEMS: A comprehensive review of systems was negative except for items noted in the HPI/Subjective: Otherwise a comprehensive ROS is negative. PHYSICAL EXAM: BP (!) 178/93 Pulse 88 Temp 99.1 ??F (37.3 ??C) Resp 15 Ht 5' 9 (1.753 m) Wt 94 kg (207 lb 3.7 oz) SpO2 95% BMI 30.60 kg/m?? General appearance: awake and alert HEENT: NCAT RESPIRATORY: Nonlabored respirations on room air CARDIOVASCULAR: Extremities WWP, pulses palpable SKIN: intact, warm, dry PSYCHOLOGICAL/JUDGEMENT: intact/normal Extremities: Exam of the right elbow reveals that he is in a long-arm splint. Sensation and motor function intact median radial ulnar nerves. No tenderness over the shoulder or fingers. Exam of the left wrist shows that there is tenderness and swelling on the wrist but he is able to flex and extendthe wrist and fingers without appreciable deficit. Neuro vastly intact. PROCEDURES: N/A IMAGING: Reviewed x-rays and CT scan of the right elbow which demonstrates a comminuted olecranon fracture with surrounding gas suggesting open fracture. Fracture is minimally displaced but there is comminution of a portion of the articular surface. 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 I also reviewed x-rays of the patient's left wrist. No fractures dislocations or malalignment is seen. LABS: Results for orders placed or performed during the hospital encounter of 01/11/25 (from the past 24 hours) POCT VBG/Na/K/Glu Result Value Ref Range POCT pH Venous 7.33 7.30 - 7.40 POCT pCO2 Venous 47 36 - 51 mm Hg POCT pO2 Venous 49 (H) 35 - 45 mm Hg POCT HCO3 VENOUS 25 22 - 29 mmol/L POCT BASE EXCESS -2.0 -3.0 - 2.0 mmol/L POCT CSO2 81.0 (L) 92.0 - 98.0 %SAT POCT cTCO2 26.0 mmol/L POCT SODIUM 147 (H) 133 - 144 mmol/L POCT POTASSIUM 4.4 3.5 - 5.0 mmol/L POCT Glucose 153 (H) 60 - 100 mg/dL POCT Ca, Ionized Result Value Ref Range POCT CA IONIZED 1.31 1.13 - 1.32 mmol/L POCT Lac Result Value Ref Range POCT LACTIC ACID 1.1 0.7 - 2.1 mmol/L POCT CREATININE Result Value Ref Range POCT Creatinine 1.6 (H) 0.7 - 1.3 mg/dL POCT Chloride Result Value Ref Range POCT CHLORIDE 108 99 - 111 mmol/L Hemoglobin Result Value Ref Range Hemoglobin 18.0 14.0 - 18.0 gm/dL Platelet Count Result Value Ref Range Platelet Count 273 150 - 400 K/UL Protime/INR Result Value Ref Range INR 1.0 0.9 - 1.2 Type and Screen Result Value Ref Range Group and Rh O Positive Antibody Screen Negative Alcohol (ETOH), Plasma Result Value Ref Range ALCOHOL (ETOH), PLASMA <3 <3 mg/dL ABORh Confirm (Lab Use Only) Result Value Ref Range Group and Rh O Positive EKG Result Value Ref Range EKG Basic Metab Profile Result Value Ref Range Sodium 142 136 - 145 mmol/L Potassium 4.3 3.4 - 5.1 mmol/L Chloride 112 (H) 98 - 108 mmol/L Carbon Dioxide 23 20 - 31 mmol/L BUN (Urea Nitro) 12 9 - 23 mg/dL Creatinine 1.41 (H) 0.73 - 1.18 mg/dL Est GFR (CKD-EPI) >60.00 >60.00 mL/min/1.73m2 Glucose 87 74 - 106 mg/dL Calcium, Serum 8.7 8.7 - 10.4 mg/dL Anion Gap 7.0 0.0 - 15.0 mmol/L ASSESSMENT: This is a 49 y.o. male with a grade 1 open right olecranon fracture Principal Problem: Accidental fall from ladder Active Problems: Elbow fracture, right, closed, initial encounter Primary hypertension Mild TBI (HCC) Scalp laceration, initial encounter PLAN: I recommend proceeding to the operating room urgently for irrigation debridement of the open fracture with open reduction internal fixation. Risk benefits alternatives of the surgery were discussed at length with the patient. He agrees to proceed. He received Ancef and tetanus in the emergency room. He will need to stay for the rest of the day for IV antibiotics but can be discharged home this evening after surgery. He has been cleared for the operating room by the trauma service. DVT prophylaxis: None needed from orthopedic perspective Will Kebede MD Orthopedic Trauma [facility] NTATION AND MOBILITY INSTRUCTOR documented in this encounter Nursing Notes * Koppel, Nathalie C, RN - 01/12/2025 2:46 PM CST Problem: Falls/Injury-Risk of Goal: Absence of Falls/Injury Outcome: Met this shift Flowsheets Taken 01/12/2025 0115 by Venkat Dotson RN Environmental Safety Interventions: Standard Interventions in Place Mobility Safety Interventions: Standard Interventions in Place Elimination Safety Interventions: Standard Interventions in Place Taken 01/11/2025 1834 by Betty Ruvalcaba RN Medication: Standard Interventions in Place Note: No falls. Problem: Communication Goal: Demonstrates/exhibits ability to communicate needs effectively Outcome: Met this shift Note: Uses call light appropriately to make wants and needs known. Problem: Venous Thromboembolism (VTE) Goal: Absence of venous thromboembolism (VTE) Outcome: Met this shift NTATION AND MOBILITY INSTRUCTOR * Archana Garcia RN - 01/12/2025 10:[address] Rice updated regarding BP. No orders in PACU to treat. Report given to 6W RN Lungs clear, sats 97% on RA Dressing to right arm D/I, ice on CMS good Patient meets criteria to be transferred to 6W NTATION AND MOBILITY INSTRUCTOR * Kaley Samuels RN - 01/12/2025 7:17 AM CST Pt's Nubia arrived. Pt's cell phone given to Nubia. Dr. Rice updated regarding nicotine patch and elevated blood pressure. No new orders . Kaley Samuels RN NTATION AND MOBILITY INSTRUCTOR * Kaley Samuels RN - 01/12/2025 6:49 AM CST Pt received into PIR this AM in anticipation of surgery with Dr. Kebede. Pt comes with his cell phone. Pt states his is on the way. If she does not arrive before pt goes in for surgery his cell phone will be locked up in PIR. Pt has a nicotine patch on his right shoulder. The MAR states that this patch has been discontinued. Awaiting Dr. Kebede. Kaley Pitt NTATION AND MOBILITY INSTRUCTOR * Venkat Dotson RN - 01/11/2025 11:35 PM CST Problem: Falls/Injury-Risk of Goal: Absence of Falls/Injury Outcome: Met this shift NTATION AND MOBILITY INSTRUCTOR documented in this encounter OR Notes * OR Surgeon - Rangel Kebede MD - 01/12/2025 8:23 AM CST ORTHOPEDIC OPERATIVE REPORT PREOPERATIVE DIAGNOSIS: Open right olecranon fracture POSTOPERATIVE DIAGNOSIS: Same PROCEDURE: 1. Irrigation and debridement of open fracture, right olecranon, deepest layer is bone and is excisional 2. Open reduction internal fixation right olecranon fracture SURGEON: Rangel Kebede MD TOOL DESIGN DRAFTSPERSON: Primo Spain PA-C, whose assistance was required for positioning, prep/drape, exposure, debridement, application of internal fixation, and closure ANESTHESIA: General ESTIMATED BLOOD LOSS: 20 cc TOURNIQUET TIME: About 30 minutes@ 250 mmHg COMPLICATIONS: None SPECIMENS: None IMPLANTS: Implant Name Type Inv. Item Serial No. Processing Lead Lot No. LRB No. Used Action PL 2.7/3.5 PROX OLECR 2H/R/73M - [id number] Plate PL 2.7/3.5 PROX OLECR 2H/R/73M [employer] Right 1 Implanted SCREW 2.7MM VA LCK SLF-TP 28MM - [id number] Screw/[place] SCREW 2.7MM VA LCK SLF- TP 28MM [employer] Right 1 Implanted SCREW 2.7MM VA LCK SLF-TP 34MM - [id number] Screw/[place] SCREW 2.7MM VA LCK SLF- TP 34MM [employer] Right 1 Implanted SCR 2.7 METPHYSEAL SLF-TP 56MM - [id number] Screw/[place] SCR 2.7 METPHYSEAL SLF- TP 56MM [employer] Right 1 Implanted SCREW 2.7MM VA LCK SLF-TP 12MM - [id number] Screw/[place] SCREW 2.7MM VA LCK SLF- TP 12MM [employer] Right 1 Implanted SCR SYN CRTX S/T3.07/16 204.826 - [id number] Screw/[place] SCR SYN CRTX S/T3.07/16 204.826 [employer] Right 1 Implanted SCR SYN CRTX S/T3. 204.834 - [id number] Screw/[place] SCR SYN CRTX S/T3. 204.834 [employer] Right 1 Implanted INDICATIONS: Patient is a [id number] 49-year-old man who fell off a ladder and sustained an open right olecranon fracture. He received Ancef and tetanus upon admission last evening. He was then admitted. CT scan demonstrates some comminution of the articular surface. 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 Given the open fracture and the displacement of the articular surface, I recommended irrigation and debridement as well as open reduction internal fixation. Risks of surgery were discussed at length including but not limited to bleeding, infection, damage nerves and blood vessels, failure of fixation, nonunion, malunion, elbow stiffness, symptomatic hardware which may require removal, as well as medical risk of anesthesia. He understands and agrees to proceed. Consent was obtained. PROCEDURE IN DETAIL: Patient was brought to the operating room. General anesthesia was obtained. Hewas then carefully positioned in the prone position on gel rolls. There was appropriate padding of all bony surfaces. The right arm was then prepped and draped in normal sterile fashion and placed over the bolster. Timeout was taken, preoperative Ancef was given, everyone agreed. I exsanguinated the limb and then raised the tourniquet. There was a relatively complex wound along the posterior aspect of the elbow. I excised the central portion of the skin flap which was dusky and nonviable. This was about a centimeter in diameter. I then made an incision proximal and distal connecting with to the wound. I exposed the fracture site. I debrided it with a curette as well as a rongeur. I then irrigated 3 L of normal saline into the fracture site. We then switched our gloves and had a new set ofinstruments as we went from a dirty to a clean set up. I then was able to clamp the fracture reduced anatomically, verified fluoroscopically. I then split the triceps tendon in the midline with the Bovie electrocautery to allow the plate to sit directly on the bone. I then positioned the plate appropriately. I fixed it distally in the shaft with a cortical screw. I then placed a homerun screw from the tip of the olecranon under the articular surface to the anterior aspect of the proximal ulna. This was a cortical screw and compressed the plate down to the bone nicely, securing the fracture. Cherylen placed an additional 2 screws within the diaphysis and distal to the ulnohumeral joint. I thenplaced 2 additional screws within the proximal part of the elbow to secure the comminuted tip of the olecranon process. I ran a 2 oh Krak??w with FiberWire suture and I tied this to the plate within the triceps tendon as well. I then took final fluoroscopic imaging. I was pleased with reduction of fixation. Tourniquet was let down hemostasis was achieved. I then placed a gram of vancomycin powderand 1.2 g of tobramycin powder around the plate. I closed the small split within the triceps tendonwith 0 Vicryl suture. I then closed some of the subcutaneous fatty tissue with 0 Vicryl, the dermallayer was closed with buried 2-0 Vicryl followed by chandni and 3-0 nylon for the skin. A sterile soft dressing was then placed followed by a well-padded posterior long-arm splint. Patient was then awoke from anesthesia, transferred to operative table, taken the PACU in stable condition. All spongeneedle counts were reported as correct. There were no immediate complications. POST-OPERATIVE PLAN: Activity: Nonweightbearing right upper extremity, splint immobilization x 2 weeks Antibiotics: Postop Ancef, he may go home today after his evening dose DVT: None required Follow-up: 2 weeks Dispo: Home later today NTATION AND MOBILITY INSTRUCTOR documented in this encounter ED Notes * Emely Whitman. - 01/11/2025 9:13 PM CST Laceration Repair Procedure: Laceration Repair Indication: Laceration Consent: Verbal Location: Right Face - forehead Length: 5 cm - stellate Preparation: Irrigation with Sterile Saline. Anesthesia/Sedation: Bupivacaine with Epinephrine - 0.5% Treatment/Exploration: Wound explored, no foreign bodies found Closure: The wound was closed with one layer. Skin/superficial layer was closed with 10 x 5-0 Polypropylene (prolene) using Interrupted sutures. The patient tolerated the procedure well: yes. There were no complications. Emely Bishop MD Cosigned by Sol Goodman MD at 01/12/2025 1:59 AM ORIENTATION AND MOBILITY INSTRUCTOR NTATION AND MOBILITY INSTRUCTOR NTATION AND MOBILITY INSTRUCTOR Associated attestation - Sol Goodman MD - 01/12/2025 1:59 AM ORIENTATION AND MOBILITY INSTRUCTOR ATTENDING ADDENDUM: This patient was seen in conjunction with the Resident. I was present for critical components of procedure. I agree with the documentation above. Sol Goodman MD * Joelle Yancey RN - 01/11/2025 7:16 PM CST Pt having head sutured. and her friend arrived and are at bedside. NTATION AND MOBILITY INSTRUCTOR * Betty Ruvalcaba RN - 01/11/2025 6:51 PM CST Patient moved to cart 25. Report to Nicki RN, who will assume care of patient at this time. NTATION AND MOBILITY INSTRUCTOR * Betty Ruvalcaba RN - 01/11/2025 6:27 PM CST C spine cleared by Dr. Lawson. Patient sitting up in bed. OK for water. NTATION AND MOBILITY INSTRUCTOR * Betty Ruvalcaba RN - 01/11/2025 6:11 PM CST Chrissie updated and en route to hospital [phone] NTATION AND MOBILITY INSTRUCTOR * Betty Ruvalcaba RN - 01/11/2025 5:51 PM CST 173-patient arrrives via [facility] to Stab 1 as partial trauma. Per report, pt was hanging Christmaslights at home when he fell off ladder approx 8ft. Unknown downtime. He was found by family to be alert but confused. Family called 911. En route pt c/o neck pain. PIV x 2. Pt given 100mcg fentanyl IV, 1g TXA. C collar in place. On arrival to ER, pt is awake, alert but confused to time/place. Does not recall events of this afternoon. He has a 2 in laceration to right forehead, left wrist pain with splint in place, right elbow abrasions, dressing applied en route. C/o pain in neck. C spine maintained. Patient declines any pain meds. He is tachy, hypertensive. Reports hx of HTN. 1748-Patient to CT scan, monitored with ED staff. NTATION AND MOBILITY INSTRUCTOR * Sol Goodman MD - 01/11/2025 5:34 PM CST Emergency Department Note History of Present Illness Chief Complaint Fall HPI Simeon Davidson is a 49 y.o. male with a history of hypertension who presents to the emergency department via [facility] for evaluation of a fall. The patient is not anticoagulated. Per EMS report, the patient was hanging Chio lights at home this afternoon when he fell off a ladder approximately 8ft. Unknown downtime. The patient was found by family to be alert but confused and family called 911. En route, the patient complained of neck pain. PIV x 2. Patient given 100mcg fentanyl IV, 1g TXA. C collar in place. Upon arrival, the patient is awake and alert but confused to time/place. He presents tachycardic and hypertensive, notable to have a history of hypertension. The patient does not recall events of this afternoon. He presents with a 3.5 and a 1.5 laceration to his right forehead, leftwrist pain with splint in place, and right elbow abrasions with dressing applied en route. Here, the patient complains of most pain in between his shoulder blades. He further states having some rightupper quadrant abdominal pain. The patient denies further complaint at this time. Independent Historian EMS Review of External Notes Reviewed immunization database, Tdap from 2019 Past Medical History Medical History and Problem List Hypertension Medications None on file. Surgical History None on file. Physical Exam Temperature: 97.7 ??F (36.5 ??C) Pulse: (!) 111 Respirations: (!) 24 BP: (!) 200/118 SpO2: 90 % Physical Exam Constitutional: Well developed and well nourished. Head: Lacerations over the scalp 3.5 cm, 1.5 cm Eyes: Pupils are 3 mm, equal round reactive to light. Extraocular movements intact. Ear, Nose, Mouth, Throat: Hearing grossly intact, external ears normal. Oropharynx normal. No evidence of dental injury. Cardiovascular: Tachycardic rate and rhythm. Peripheral pulses normal and equal in all extremities,normal capillary refill. Respiratory: Breath sounds clear bilaterally. Chest wall nontender to palpation Gastrointestinal: Soft, tender in the right upper quadrant, with some guarding. Musculoskeletal: - Neck/Back: c spine without tenderness, tenderness through the mid thoracic midline spine no bony crepitus. - No anterior or lateral chest wall tenderness. Patient with no pain over clavicles. - Right upper extremity: Multiple laceration of the right elbow, tenderness in the right elbow, full range of motion. Sensation intact - Left upper extremity: Tenderness over the left wrist with superficial laceration over the palmar aspect sensation intact Pelvis stable - Right lower extremity with right dill abrasion. sensation intact - Left lower extremity has a laceration over left dill with edema. sensation intact Neurologic: Alert and interactive, no focal neurologic deficits, confused Vitals Trending Patient Vitals for the past 24 hrs: BP Temp Pulse Resp SpO2 01/11/25 1830 (!) 181/110 -- 90 20 93 % 01/11/25 1825 -- -- 97 22 95 % 01/11/25 1820 (!) 202/118 -- 89 21 97 % 01/11/25 1815 (!) 203/106 -- 93 20 97 % 01/11/25 1812 (!) 188/107 -- 90 -- -- 01/11/25 1810 (!) 208/106 -- 90 14 95 % 01/11/25 1805 (!) 199/107 -- 94 12 95 % 01/11/25 1800 (!) 188/111 -- 75 18 95 % 01/11/25 1755 (!) 198/139 -- 95 17 95 % 01/11/25 1750 (!) 181/116 -- 93 19 96 % 01/11/25 1745 -- -- (!) 108 (!) 28 94 % 01/11/25 174 (!) 210/126 -- (!) 108 (!) 37 94 % 01/11/25 1736 (!) 200/118 97.7 ??F (36.5 ??C) (!) 111 (!) 24 90 % 01/11/25 173 (!) 200/118 -- (!) 111 (!) 24 90 % Diagnostics Lab Results Labs Reviewed POCT VBG/NA/K/GL - Abnormal; Notable for the following components: Result Value POCT pO2 Venous 49 (*) POCT CSO2 81.0 (*) POCT SODIUM 147 (*) POCT Glucose 153 (*) All other components within normal limits POCT CREATININE - Abnormal; Notable for the following components: POCT Creatinine 1.6 (*) All other components within normal limits HEMOGLOBIN - Normal PLATELET COUNT - Normal PROTIME/INR - Normal ALCOHOL (ETOH) - Normal POCT CALCIUM, IONIZED - Normal POCT LACTIC ACID - Normal POCT CHLORIDE - Normal TYPE AND SCREEN ABORH CONFIRM (LAB USE ONLY) EXTRA TUBE-BLOOD BANK (LAB USE ONLY) EXTRA TUBE-EDTA (LAB USE ONLY) EXTRA TUBE-SST (LAB USE ONLY) EXTRA TUBE PST (LAB USE ONLY) EXTRA TUBE-COAG (LAB USE ONLY) Imaging CT EXTREM UPPER RT W/O CON Final Result IMPRESSION: 1. Comminuted, displaced fracture of the olecranon with large elbow joint effusion. Overlying soft tissue injury with scattered soft tissue gas. No intra- articular gas. 2. Advanced degenerative changes of the elbow. REPORT SIGNED BY DR. Gentry Mayorga CT Trauma Chest / ABD / Pelvis W Contrast Final Result IMPRESSION: 1. Findings consistent with a mild superficial contusion over the mid to lower right anterior abdominal wall with mild subcutaneous edema in this region. No discrete hematoma. 2. Otherwise, no evidence of thoracic, abdominal or pelvic acute traumatic injury. 3. Mild colonic diverticulosis without evidence of acute diverticulitis. REPORT SIGNED BY DR. Singh Vergara CT Reconstruction Spine Lumbar Final Result IMPRESSION: 1. No evidence of a fracture, subluxation or dislocation. 2. Severe degenerative changes at L5-S1. REPORT SIGNED BY DR. Singh Vergara CT Reconstruction Spine Thoracic Final Result IMPRESSION: 1. No evidence of an acute fracture, subluxation or dislocation. 2. Multilevel degenerative changes of the thoracic spine. 3. Old healed left lateral rib fractures. REPORT SIGNED BY DR. SINGH VERGARA XRAY TIBIA FIBULA LEFT Final Result IMPRESSION: Intact left tibia and fibula. REPORT SIGNED BY DR. Austen Gage XRAY WRIST LEFT Final Result IMPRESSION: No definite osseous injuries are seen at the left wrist. REPORT SIGNED BY DR. Austen Gage XRAY ELBOW RIGHT Final Result IMPRESSION: Probable acute, nondisplaced fracture involving the proximal aspect of the olecranon process. REPORT SIGNED BY DR. Austen Gage CT Head W/O Contrast W/O 3D Final Result IMPRESSION: Right frontal scalp soft tissue swelling and laceration. No skull fracture seen. No intracranial bleed. REPORT SIGNED BY DR. Ambrosio Willard CT Spine Cervical W/O Contrast Final Result IMPRESSION: No evidence of cervical spine fracture or subluxation. REPORT SIGNED BY DR. Austen Gage EKG Lab Results Component Value Date EKG 01/11/2025 Comment: 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: [id number] : 1975 Requested By: SOL GOODMAN MD Order Number: [id number] Reading MD: SOL GOODMAN MD Measurements Intervals [place] Rate: 85 P: 61 [place]: 126 QRS: 33 QRSD: 94 T: 4 QT: 334 QTc: 376 Interpretive Statements SINUS RHYTHM POSSIBLE LEFT ATRIAL ENLARGEMENT BORDERLINE ECG No previous ECG available for comparison Electronically Signed On 01-11-2025 18:24:08 ORIENTATION AND MOBILITY INSTRUCTOR by SOL GOODMAN MD Independent Interpretation CT head with no evidence of intracranial bleed ED Course Medications Administered Medications acetaminophen (Ofirmev) IV infusion 1,000 mg (1,000 mg Intravenous New Bag 01/11/251817) WATER FOR INJECTION, STERILE INJECTION SOLUTION WRAPPER ( Canceled Entry 01/11/25 1800) CEFAZOLIN 2 GRAM SOLUTION FOR INJECTION WRAPPER ( Canceled Entry 01/11/25 1800) diphtheria-acell pertussis-tetanus toxoids (greater than or equal to 7 years of age) (Boostrix) injection 0.5 mL (0.5 mL IntraMUSCULAR Given 01/11/25 1800) ceFAZolin (Ancef) 2 g in sterile water IV syringe (2 g Intravenous Given 01/11/251747) metoprolol (LOPRESSOR) injection 5 mg (5 mg Intravenous Given 01/11/251741) metoprolol (LOPRESSOR) injection 5 mg (5 mg Intravenous Given 01/11/251811) iohexol 350 mgI/mL (OMNIPAQUE) 1-150 mL (75 mL Intravenous Given 01/11/25 1824) ketorolac (ToradoL) injection 30 mg (30 mg Intravenous Given 01/11/25 1830) Procedures Splint Placement Procedure: Splint Placement Indication: Fracture Consent: Verbal Location: Right Arm Preparation: Wounds were cleansed and dressed with a non-adherent bandage Procedure detail: Splint was applied by Tech/Nurse under my supervision Splint type: Long-arm posterior Splint material: Plaster After placement I checked and adjusted the fit as needed to ensure proper positioning/fit. Sensation and circulation are intact after splint placement. The patient tolerated the procedure well: Yes. There were no complications. Discussion of Management Trauma - [facility] Stabilization Course (17:32) - The patient arrived directly into Stabilization Room 1 due to the severity of the patient's condition. A Trauma Team STAT was called and I was paged and present at bedside awaiting patient's arrival. The patient was transferred to an emergency center bed. History and rapid physical was per formed. Initial GCS was 14. Patient was immediately placed on continual cardiac monitoring and pulse oximetry. (17:40) - The patient was placed on portable monitoring and brought to CT for emergent imaging. (18:33) - I reviewed the patient's vital signs, past medical history, previous medical charts, and nursing notes. Additional Documentation None Medical Decision Making / Diagnosis MIPS None [facility] Simeon Davidson is a 49 y.o. male past medical history as noted above who presents to the ED today forevaluation after fall 8 feet from ladder. We did obtain later information stating that the ladder collapsed and patient fell down onto the ladder. 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 He had lacerations over his head, injuries to the right elbow, left elbow, complaining of pain in his back. C-collar was placed in the field and is brought to the emergency department where he was met by myself and the trauma team. Exam as above with normal primary survey, secondary survey performed which showed lacerations as noted on physical exam. Differential: Considered intracranial bleed, cervical versus thoracic spinal injury. Fortunately he has strength and sensation in his bilateral lower extremities as well as upper extremities. He has a laceration on the right elbow, consider fracture, open fracture, superficial laceration with bony contusion. He also has a reported deformity of the left wrist, so would consider fracture versus dislocation. He did have some guarding of the abdomen, so I considered intra- abdominal pathology. He has a lacerationon the left dill, consider tip/fib fracture. Labs were obtained, fortunately were reassuring with creatinine 1.6, no significant acidosis or lactic acid level. Alcohol negative. Patient was taken to CT scanner which showed no evidence of intracranial hemorrhage, cervical spine injury, or injury in the chest, abdomen, pelvis. X-ray did show a right olecranon process fracture. Given the overlying laceration, this would be considered an open fracture. He did receive Ancef in the emergency department prior to even going for imaging. He also received Tylenol, Toradol, tetanus, metoprolol. Lacerations were repaired per resident note. Splint was placed over the right elbow. I discussed with orthopedics, who ordered a CT scan of the right upper extremity, he they will plan to take patient to the OR tomorrow for repair. Patient will be admitted to the hospital to the trauma service, he is agreeable. Disposition The patient was admitted to the hospital. New Prescriptions No medications on file Diagnosis ICD-10-CM 1. Closed head injury, initial encounter S09.90XA 2. Open fracture of right elbow, initial encounter S42.401B 3. Fall from ladder, initial encounter W11.XXXA Upon my evaluation, this patient had a high probability of imminent or life- threatening deterioration due to Trauma (multiple or significant), which required my direct attention, intervention, and personal management. I have personally provided 34 minutes of critical care time exclusive of time spent on separately billable procedures. Time includes review of laboratory data, radiology results, discussion with consultants, and monitoring for potential decompensation. Interventions were performed as documented above. ATTESTATION: Scribe Attestation: I, Devika Petersen, am serving as a scribe to document services personally performed by Sol Goodman MD, based on my observations and the provider's statements to me. Provider Attestation: Portions of this medical record were completed by a scribe. UPON MY REVIEW AND AUTHENTICATION BY ELECTRONIC SIGNATURE, this confirms (a) I performed the applicable clinical services, and (b) the record is accurate. Sol Goodman MD 01/11/25 01/11/2025 [facility] EMERGENCY DEPARTMENT NTATION AND MOBILITY INSTRUCTOR documented in this encounter Miscellaneous Notes * Med Reconciliation - Jazmin Go - 01/11/2025 8:31 PM CST PHARMACY MEDICATION RECONCILIATION NOTE MEDICATION RECONCILIATION on admission by pharmacy has been completed. Prior to admission medications were reviewed with outside pharmacy records, the patient's family, and the patient. The [facility] medication list has been updated and reflected in the chart below. Please use the [facility] medication section for ordering home doses during admission. Medication related issues: Added: all medications to [facility] list Testosterone: family reports that the patient gets this through [facility] and it is delivered to their house. Updated [facility] list per family report and picture of prescription label. Medications requiring detailed history: Not applicable PRIOR TO ADMISSION MEDICATION LIST: Prior to Admission Medications Prescriptions Last Dose Informant Patient Reported? Taking? UNKNOWN MEDICATIONS 01/11/2025 Morning Family Yes Yes Sig: Take 1 tablet by mouth once daily. Pure Saffron Supplement UNKNOWN MEDICATIONS 01/11/2025 Morning Family Yes Yes Sig: Take 1 tablet by mouth once daily. Vitamins A,D,K testosterone cypionate 200 mg/mL IM Syringe 01/10/2025 Family Yes Yes Sig: Inject 0.6 mL into the muscle two times per week. Tuesday and vitamin D3/vitamin K2, MK4, (K2 PLUS D3 ORAL) 01/11/2025 Morning Family Yes Yes Sig: Take 1 tablet by mouth once daily. Also contains zinc Facility-Administered Medications: None This patient obtains medications from [facility] #[id number] - [place], [place] - [address] [facility] [address] [facility]. Thank you for the opportunity to participate in the care of this patient. Phone #:[phone] or [phone] Jazmin Rodriges Rpg Developer Time spent reconciling meds:15 min Location: face to face encounter Cosigned by Edita Adkins, Pharm D at 01/11/2025 9:02 PM ORIENTATION AND MOBILITY INSTRUCTOR NTATION AND MOBILITY INSTRUCTOR NTATION AND MOBILITY INSTRUCTOR documented in this encounter Plan of Treatment Scheduled Referrals Name Type Priority Associated Diagnoses Orde r Schedule Follow Up Follow Up Routine Ordered: 01/12 Follow Up with Occupational Therapy Follow Up Routine Closed head injury, initial encounter Fall from ladder, initial encounter Ordered: 01/12/2025 Follow up with [facility] Follow Up Routine Ordered: 12/23 documented as of this encounter Procedures Procedure Name Priority Date/Time Associated Diagnosis Comments XR C ARM EXTREMITY RT STAT 01/12/2025 9:05 AM ORIENTATION AND MOBILITY INSTRUCTOR OPEN TREATMENT ULNAR FRACTURE PROXIMAL END Class D 01/12/2025 7:45 AM ORIENTATION AND MOBILITY INSTRUCTOR Olecranon fracture, right, open type I or II, initial encounter IRRIGATION DEBRIDEMENT ARM Class D 01/12/2025 7:45 AM ORIENTATION AND MOBILITY INSTRUCTOR Olecranon fracture, right, open type I or II, initial encounter BASIC METAB PROFILE Timed Procedure 01/12/2025 5 :02 AM ORIENTATION AND MOBILITY INSTRUCTOR EXTRA TUBE-EDTA Routine 01/12/2025 5:00 AM ORIENTATION AND MOBILITY INSTRUCTOR CT EXTREM UPPER RT W/O CON STAT 01/11/2025 10:29 PM ORIENTATION AND MOBILITY INSTRUCTOR CT TRAUMA CHEST/ABD/PEL W CON STAT 01/11/2025 6:23 PM ORIENTATION AND MOBILITY INSTRUCTOR CT RECONSTRUCTION SPINE LUMBAR STAT 01/11/2025 6:23 PM ORIENTATION AND MOBILITY INSTRUCTOR ELECTROCARDIOGRAM STAT 01/11/2025 6:2 2 PM ORIENTATION AND MOBILITY INSTRUCTOR CT RECONSTRUCTION SPINE THORACIC STAT 01/11/2025 6:22 PM ORIENTATION AND MOBILITY INSTRUCTOR XR TIBIA & FIBULA LT STAT 01/11/2025 6:14 PM ORIENTATION AND MOBILITY INSTRUCTOR XR WRIST LT 3 VIEW STAT 01/11/2025 6: 12 PM ORIENTATION AND MOBILITY INSTRUCTOR XR ELBOW RT 3 VIEW STAT 01/11/2025 6: 10 PM ORIENTATION AND MOBILITY INSTRUCTOR CT SPINE CERVICAL W/O CON STAT 01/11/2025 5:56 PM ORIENTATION AND MOBILITY INSTRUCTOR CT HEAD W/O CON W/O 3D STAT 5:56 PM ORIENTATION AND MOBILITY INSTRUCTOR EXTRA TUBE-EDTA STAT 01/11/2025 5:42 PM ORIENTATION AND MOBILITY INSTRUCTOR EXTRA TUBE-COAG STAT 01/11/2025 5:42 PM ORIENTATION AND MOBILITY INSTRUCTOR EXTRA TUBE-BLOOD BANK STAT 01/11/2025 5:42 PM ORIENTATION AND MOBILITY INSTRUCTOR EXTRA TUBE-SST (LAB USE ONLY) STAT 01/11/2025 5:42 PM ORIENTATION AND MOBILITY INSTRUCTOR ABORH CONFIRM (LAB USE ONLY) STAT 01/11/2025 5:42 PM ORIENTATION AND MOBILITY INSTRUCTOR TYPE AND SCREEN STAT 01/11/2025 5:42 PM ORIENTATION AND MOBILITY INSTRUCTOR ALCOHOL (ETOH) STAT 01/11/2025 5:42 PM ORIENTATION AND MOBILITY INSTRUCTOR PROTIME/INR STAT 01/11/2025 5:42 PM ORIENTATION AND MOBILITY INSTRUCTOR PLATELET COUNT STAT 01/11/2025 5:42 PM ORIENTATION AND MOBILITY INSTRUCTOR HEMOGLOBIN STAT 01/11/2025 5:42 PM ORIENTATION AND MOBILITY INSTRUCTOR EXTRA TUBE PST STAT 01/11/2025 5:42 PM ORIENTATION AND MOBILITY INSTRUCTOR POCT LACTIC ACID STAT 01/11/2025 5:39 PM ORIENTATION AND MOBILITY INSTRUCTOR POCT CREATININE Routine 01/11/2025 5:39 PM ORIENTATION AND MOBILITY INSTRUCTOR POCT VBG/NA/K/GL STAT 01/11/2025 5:39 PM ORIENTATION AND MOBILITY INSTRUCTOR POCT CALCIUM, IONIZED STAT 01/11/2025 5:39 PM ORIENTATION AND MOBILITY INSTRUCTOR POCT CHLORIDE STAT 01/11/2025 5:39 PM ORIENTATION AND MOBILITY INSTRUCTOR documented in this encounter Results * XR C ARM EXTREMITY RT (01/12/2025 9:05 AM ORIENTATION AND MOBILITY INSTRUCTOR) Anatomical Region Laterality Modality Extremity Computed Radiogr aphy 01/12/2025 9:23 AM ORIENTATION AND MOBILITY INSTRUCTOR Impressions 01/12/2025 9:24 AM ORIENTATION AND MOBILITY INSTRUCTOR impression: 2 images saved. Fluoroscopy time 36 seconds. Imaging guidance provided during open reduction internal fixation surgery along the proximal ulna Narrative 01/12/2025 9:24 AM ORIENTATION AND MOBILITY INSTRUCTOR EXAMINATION: Intraoperative imaging right elbow. INDICATION: Surgical repair. Findings/ Procedure Note Deven Anderson MD - 01/12/2025 EXAMINATION: Intraoperative imaging right elbow. INDICATION: Surgical repair. Findings/ IMPRESSION impression: 2 images saved. Fluoroscopy time 36 seconds. Imaging guidance providedduring open reduction internal fixation surgery along the proximal ulna us Rangel Kebede MD XRAY ORDERABLE Final Re sult * (ABNORMAL) Basic Metab Profile (01/12/2025 5:02 AM ORIENTATION AND MOBILITY INSTRUCTOR) Sodium 142 136 - 145 mmol/L 01/12/2025 6:27 AM ORIENTATION AND MOBILITY INSTRUCTOR [facility] Potassium 4.3 3.4 - 5.1 mmol/L 01/12/2025 6:27 AM [facility] Comment:Interpret with cauti on, specimen slightly hemolyzed. Results may be affected. Chloride 112(H) 98 - 108 mmol/L 01/12/2025 6:27 AM [facility] Carbon Dioxide 23 20 - 31 mmol/L 01/12/2025 6:27 AM [facility] BUN (Urea Nitro) 12 9 - 23 mg/dL 01/12/2025 6:27 AM [facility] Creatinine 1.41(H) 0.73 - 1.18 mg/dL 01/12/2025 6:27 AM [facility] Est GFR (CKD-EPI) >60.00 >60.00 mL/min/1. 73m2 01/12/2025 6:27 AM [facility] Comment:Calculation based on the Chronic Kidney Disease Epidemiology Collaboration (CKD-EPI 2020) equation refit without adjustment for race. Glucose 87 74 - 106 mg/dL 01/12/2025 6:27 AM [facility] Calcium, Serum 8.7 8.7 - 10.4 mg/dL 01/12/2025 6:27 AM [facility] Anion Gap 7.0 0.0 - 15.0 mmol/L 01/12/2025 6:27 AM [facility] Blood 01/12/2025 5:02 AM ORIENTATION AND MOBILITY INSTRUCTOR 01/12/2025 5:54 AM ORIENTATION AND MOBILITY INSTRUCTOR us Flo Lawson MD CHEMISTRY ORDERABLE Final R esult Performing Organization Address [facility] Co de Phone Number [facility] [address] [place] [address] * Extra Tube-EDTA (Lab Use Only) (01/12/2025 5:00 AM ORIENTATION AND MOBILITY INSTRUCTOR) Only the most recent of2 resultswithin the time period is included. Blood 01/12/2025 5:00 AM ORIENTATION AND MOBILITY INSTRUCTOR 01/12/2025 6:12 AM ORIENTATION AND MOBILITY INSTRUCTOR us Rangel Kebede MD HEMATOLOGY ORDERABLE Fin al Result Performing Organization Address [facility] de Phone Number [facility] [address] [id number] * CT EXTREM UPPER RT W/O CON (01/11/2025 10:29 PM ORIENTATION AND MOBILITY INSTRUCTOR) Anatomical Region Laterality Modality Upper Extremity Computed Tomogra phy 01/11/2025 10:5 4 PM ORIENTATION AND MOBILITY INSTRUCTOR Impressions 01/11/2025 10:58 PM ORIENTATION AND MOBILITY INSTRUCTOR IMPRESSION: 1. Comminuted, displaced fracture of the olecranon with large elbow joint effusion. Overlying soft tissue injury with scattered soft tissue gas. No intra-articular gas. 2. Advanced degenerative changes of the elbow. REPORT SIGNED BY DR. Gentry Mayorga Narrative 01/11/2025 10:58 PM ORIENTATION AND MOBILITY INSTRUCTOR EXAM: CT [facility] UPPER RT W/O CON DATE: 01/11/2025 22:25 CLINICAL DATA: Fracture COMPARISON: Same day radiographs. TECHNIQUE: Helical CT of the right elbow obtained without intravenous contrast. Multiplanar reformations provided. Data was manipulated by the Radiologist and 3D reformatted images were created and saved. FINDINGS: Comminuted, displaced fracture of the olecranon with greater than 2 mm articular surface step-off at the ulnar no humeral articulation. No loose body identified within the joint space. No intra-articular gas. Distal humerus and visualized portions of the proximal radius are intact. Advanced degenerative changes of the elbow. Diffuse soft tissue swelling. Large elbow joint effusion. Dorsal elbow soft tissue gas. Procedure Note Gentry Mayorga MD - 01/11/2025 EXAM: CT [facility] UPPER RT W/O CON DATE: 01/11/2025 22:25 CLINICAL DATA: Fracture COMPARISON: Same day radiographs. TECHNIQUE: Helical CT of the right elbow obtained without intravenouscontrast. Multiplanar reformations provided. Data was manipulated by theRadiologist and 3D reformatted images were created and saved. FINDINGS: Comminuted, displaced fracture of the olecranon with greater than 2 mmarticular surface step-off at the ulnar no humeral articulation. No loosebody identified within the joint space. No intra-articular gas. Distal humerus and visualized portions of the proximal radius are intact.Advanced degenerative changes of the elbow. Diffuse soft tissue swelling.Large elbow joint effusion. Dorsal elbow soft tissue gas. IMPRESSION IMPRESSION: 1. Comminuted, displaced fracture of the olecranon with large elbow jointeffusion. Overlying soft tissue injury with scattered soft tissue gas. Nointra-articular gas. 2. Advanced degenerative changes of the elbow. REPORT SIGNED BY DR. Gentry Mayorga us Rangel Kebede MD CT ORDERABLE Final Re sult * CT Trauma Chest / ABD / Pelvis W Contrast (01/11/2025 6:23 PM ORIENTATION AND MOBILITY INSTRUCTOR) Anatomical Region Laterality Modality Chest, ABD/Pelvis Computed Tomog cr 01/11/2025 6:21 PM ORIENTATION AND MOBILITY INSTRUCTOR Impressions 01/11/2025 6:29 PM ORIENTATION AND MOBILITY INSTRUCTOR IMPRESSION: 1. Findings consistent with a mild superficial contusion over the mid to lower right anterior abdominal wall with mild subcutaneous edema in this region. No discrete hematoma. 2. Otherwise, no evidence of thoracic, abdominal or pelvic acute traumatic injury. 3. Mild colonic diverticulosis without evidence of acute diverticulitis. REPORT SIGNED BY DR. Singh Javier 01/11/2025 6:29 PM ORIENTATION AND MOBILITY INSTRUCTOR EXAM: CT TRAUMA CHEST/ABD/PEL W CON DATE: 01/11/2025 17:52 COMPARISON: None. CLINICAL DATA: Fall approximately 8 feet from a ladder. Trauma. TECHNIQUE: A CT angiogram (CTA) of the chest and abdomen was performed. Specifically, during the arterial phase of intravenous contrast administration, contiguous thin- section transaxial images were obtained through the thoracic aorta, chest, and abdomen. Transaxial images were then obtained through the abdomen and pelvis following a 70 second delay. Multiplanar and three dimensional (3D) reformations through the aorta were generated from the acquisition scanner and reviewed. Images through the chest, abdomen, and pelvis were also reformatted in the coronal plane. A total of 100 cc's of Omnipaque 350 were administered intravenously for this study. FINDINGS: CHEST: Mediastinum: No mediastinal hematoma. No thoracic lymphadenopathy. No pericardial effusion. Thoracic aorta: No CT evidence of acute traumatic injury to the thoracic aorta. The thoracic aorta is widely patent and normal in caliber. Lungs: No pulmonary infiltrates or contusions are identified. There is dependent microatelectasis within the lower lobes. Central airways are patent. Pleura: No pneumothorax or hemothorax. ABDOMEN AND PELVIS: The liver, spleen, pancreas, adrenal glands and kidneys appear normal. There is no evidence of a solid abdominal organ laceration. There is no evidence of free intraperitoneal hemorrhage or a retroperitoneal hematoma. The abdominal aorta and iliac arteries are patent without evidence of acute abnormalities. No evidence of bowel wall thickening or mesenteric edema. Mild colonic diverticulosis without evidence of acute diverticulitis. No bowel obstruction. Normal appendix. The urinary bladder is unremarkable. Mild localized subcutaneous edema over the right mid to lower anterior abdominal wall. OSSEOUS STRUCTURES: No displaced fractures are identified. Old healed left lateral rib fractures. Degenerative changes of the spine. Please refer to the CT thoracic and lumbar spine reconstruction reports for a more detailed discussion of the osseous findings. Procedure Note Precipitate Washer, Singh Denson MD - 01/11/2025 EXAM: CT TRAUMA CHEST/ABD/PEL W CON DATE: 01/11/2025 17:52 COMPARISON: None. CLINICAL DATA: Fall approximately 8 feet from a ladder. Trauma. TECHNIQUE: A CT angiogram (CTA) of the chest and abdomen was performed.Specifically, during the arterial phase of intravenous contrastadministration, contiguous thin-section transaxial images were obtainedthrough the thoracic aorta, chest, and abdomen. Transaxial images werethen obtained through the abdomen and pelvis following a 70 second delay.Multiplanar and three dimensional (3D) reformations through the aorta weregenerated from the acquisition scanner and reviewed. Images through thechest, abdomen, and pelvis were also reformatted in the coronal plane. Atotal of 100 cc's of Omnipaque 350 were administered intravenously forthis study. FINDINGS: CHEST: Mediastinum: No mediastinal hematoma. No thoracic lymphadenopathy. Nopericardial effusion. Thoracic aorta: No CT evidence of acute traumatic injury to the thoracicaorta. The thoracic aorta is widely patent and normal in caliber. Lungs: No pulmonary infiltrates or contusions are identified. There isdependent microatelectasis within the lower lobes. Central airways arepatent. Pleura: No pneumothorax or hemothorax. ABDOMEN AND PELVIS: The liver, spleen, pancreas, adrenal glands and kidneys appear normal.There is no evidence of a solid abdominal organ laceration. There is noevidence of free intraperitoneal hemorrhage or a retroperitoneal hematoma.The abdominal aorta and iliac arteries are patent without evidence ofacute abnormalities. No evidence of bowel wall thickening or mesenteric edema. Mild colonicdiverticulosis without evidence of acute diverticulitis. No bowelobstruction. Normal appendix. The urinary bladder is unremarkable. Mildlocalized subcutaneous edema over the right mid to lower anteriorabdominal wall. OSSEOUS STRUCTURES: No displaced fractures are identified. Old healed left lateral ribfractures. Degenerative changes of the spine. Please refer to the CTthoracic and lumbar spine reconstruction reports for a more detaileddiscussion of the osseous findings. IMPRESSION IMPRESSION: 1. Findings consistent with a mild superficial contusion over the mid tolower right anterior abdominal wall with mild subcutaneous edema in thisregion. No discrete hematoma. 2. Otherwise, no evidence of thoracic, abdominal or pelvic acutetraumatic injury. 3. Mild colonic diverticulosis without evidence of acutediverticulitis. REPORT SIGNED BY DR. Singh Vergara us Sol Goodman MD CT ORDERABLE Final Resu lt * CT Reconstruction Spine Lumbar (01/11/2025 6:23 PM ORIENTATION AND MOBILITY INSTRUCTOR) Anatomical Region Laterality Modality Spine Computed Tomogra phy 01/11/2025 6:31 PM ORIENTATION AND MOBILITY INSTRUCTOR Impressions 01/11/2025 6:32 PM ORIENTATION AND MOBILITY INSTRUCTOR IMPRESSION: 1. No evidence of a fracture, subluxation or dislocation. 2. Severe degenerative changes at L5-S1. REPORT SIGNED BY DR. Singh Vergara Narrative 01/11/2025 6:32 PM ORIENTATION AND MOBILITY INSTRUCTOR EXAM: CT RECONSTRUCTION SPINE LUMBAR DATE: 01/11/2025 17:52 CLINICAL DATA: Trauma, fall. COMPARISON: None. TECHNIQUE: Thin-section contiguous transaxial images were obtained through the lumbar spine. Sagittal and coronal reformatted images were also obtained through the lumbar spine. In addition, three-dimensional (3D) reformations through the lumbosacral spine were generated by the radiologist on an independent workstation and reviewed. FINDINGS: Lumbar vertebrae are normal in height and alignment. No fracture, subluxation or dislocation is identified. Severe degenerative changes at L5-S1 with marked disc height loss, degenerative vacuum disc phenomena and degenerative endplate osteophyte formation. Visualized pelvic osseous structures appear intact without evidence of an acute fracture. Procedure Note Singh Vergara MD - 01/11/2025 EXAM: CT RECONSTRUCTION SPINE LUMBAR DATE: 01/11/2025 17:52 CLINICAL DATA: Trauma, fall. COMPARISON: None. TECHNIQUE: Thin-section contiguous transaxial images were obtained throughthe lumbar spine. Sagittal and coronal reformatted images were alsoobtained through the lumbar spine. In addition, three-dimensional (3D)reformations through the lumbosacral spine were generated by theradiologist on an independent workstation and reviewed. FINDINGS: Lumbar vertebrae are normal in height and alignment. No fracture,subluxation or dislocation is identified. Severe degenerative changes atL5-S1 with marked disc height loss, degenerative vacuum disc phenomena anddegenerative endplate osteophyte formation. Visualized pelvic osseousstructures appear intact without evidence of an acute fracture. IMPRESSION IMPRESSION: 1. No evidence of a fracture, subluxation or dislocation. 2. Severe degenerative changes at L5-S1. REPORT SIGNED BY DR. Singh Vergara us Sol Goodman MD CT ORDERABLE Final Resu lt * EKG (01/11/2025 6:22 PM ORIENTATION AND MOBILITY INSTRUCTOR) EKG KATHY RETANA Comment: 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: [id number] : 1975 Requested By: SOL GOODMAN MD Order Number: [id number] Reading MD: SOL GOODMAN MD Measurements Intervals [place] Rate: 85 P: 61 [place]: 126 QRS: 33 QRSD: 94 T: 4 QT: 334 QTc: 376 Interpretive Statements SINUS RHYTHM POSSIBLE LEFT ATRIAL ENLARGEMENT BORDERLINE ECG No previous ECG available for comparison Electronically Signed On 01-11-2025 18:24:08 ORIENTATION AND MOBILITY INSTRUCTOR by SOL GOODMAN MD 01/11/2025 6:22 PM ORIENTATION AND MOBILITY INSTRUCTOR us Sol Goodman MD EKG ORDERABLE Final Resu lt [facility] [address] [place] [address] * CT Reconstruction Spine Thoracic (01/11/2025 6:22 PM ORIENTATION AND MOBILITY INSTRUCTOR) Anatomical Region Laterality Modality Spine Computed Tomogra phy 01/11/2025 6:29 PM ORIENTATION AND MOBILITY INSTRUCTOR Impressions 01/11/2025 6:30 PM ORIENTATION AND MOBILITY INSTRUCTOR IMPRESSION: 1. No evidence of an acute fracture, subluxation or dislocation. 2. Multilevel degenerative changes of the thoracic spine. 3. Old healed left lateral rib fractures. REPORT SIGNED BY DR. SINGH VERGARA Narrative 01/11/2025 6:30 PM ORIENTATION AND MOBILITY INSTRUCTOR EXAM: CT RECONSTRUCTION SPINE THORACIC DATE: 01/11/2025 17:52 CLINICAL DATA: Trauma COMPARISON: None. TECHNIQUE: Thin-section contiguous transaxial images were obtained through the thoracic spine. Sagittal and coronal reformatted images were also obtained through the thoracic spine. In addition, three-dimensional (3D) reformations through the thoracic spine were generated by the radiologist on an independent workstation and reviewed. FINDINGS: Thoracic vertebrae are normal in height and alignment. No evidence of a fracture, subluxation or dislocation. Multilevel thoracic degenerative disc height loss with endplate osteophyte formation. Old healed left lateral rib fractures. Procedure Note Singh Vergara MD - 01/11/2025 EXAM: CT RECONSTRUCTION SPINE THORACIC DATE: 01/11/2025 17:52 CLINICAL DATA: Trauma COMPARISON: None. TECHNIQUE: Thin-section contiguous transaxial images were obtainedthrough the thoracic spine. Sagittal and coronal reformatted images werealso obtained through the thoracic spine. In addition, three-dimensional(3D) reformations through the thoracic spine were generated by theradiologist on an independent workstation and reviewed. FINDINGS: Thoracic vertebrae are normal in height and alignment. No evidence of afracture, subluxation or dislocation. Multilevel thoracic degenerativedisc height loss with endplate osteophyte formation. Old healed leftlateral rib fractures. IMPRESSION IMPRESSION: 1. No evidence of an acute fracture, subluxation or dislocation. 2. Multilevel degenerative changes of the thoracic spine. 3. Old healed left lateral rib fractures. REPORT SIGNED BY DR. SINGH VERGARA us Sol Goodman MD CT ORDERABLE Final Resu lt * XRAY TIBIA FIBULA LEFT (01/11/2025 6:14 PM ORIENTATION AND MOBILITY INSTRUCTOR) Anatomical Region Laterality Modality Extremity Computed Radiogr aphy 01/11/2025 6:38 PM ORIENTATION AND MOBILITY INSTRUCTOR Impressions 01/11/2025 6:38 PM ORIENTATION AND MOBILITY INSTRUCTOR IMPRESSION: Intact left tibia and fibula. REPORT SIGNED BY DR. Austen Gage Narrative 01/11/2025 6:38 PM ORIENTATION AND MOBILITY INSTRUCTOR EXAM: XR TIBIA & FIBULA LT DATE: 01/11/2025 18:07 CLINICAL: Trauma. COMPARISON: None. FINDINGS: Left tibia and fibula are intact and normally mineralized. No significant soft tissue abnormalities Procedure Note Austen Gage MD - 01/11/2025 EXAM: XR TIBIA & FIBULA LT DATE: 01/11/2025 18:07 CLINICAL: Trauma. COMPARISON: None. FINDINGS: Left tibia and fibula are intact and normally mineralized. Nosignificant soft tissue abnormalities IMPRESSION IMPRESSION: Intact left tibia and fibula. REPORT SIGNED BY DR. Austen Gage Sol Goodman MD XRAY ORDERABLE Final Resu lt * XRAY WRIST LEFT (01/11/2025 6:12 PM ORIENTATION AND MOBILITY INSTRUCTOR) Anatomical Region Laterality Modality Extremity Computed Radiogr aphy 01/11/2025 6:36 PM ORIENTATION AND MOBILITY INSTRUCTOR Impressions 01/11/2025 6:38 PM ORIENTATION AND MOBILITY INSTRUCTOR IMPRESSION: No definite osseous injuries are seen at the left wrist. REPORT SIGNED BY DR. Austen Gage Narrative 01/11/2025 6:38 PM ORIENTATION AND MOBILITY INSTRUCTOR EXAM: XR WRIST LT 3 VIEW DATE: 01/11/2025 18:08 CLINICAL: Pain. COMPARISON: None. FINDINGS: Distal radius and ulna are intact. Carpal bone alignment is anatomic. Radiocarpal space is maintained. No definite fractures are evident Procedure Note Austen Gage MD - 01/11/2025 EXAM: XR WRIST LT 3 VIEW DATE: 01/11/2025 18:08 CLINICAL: Pain. COMPARISON: None. FINDINGS: Distal radius and ulna are intact. Carpal bone alignment isanatomic. Radiocarpal space is maintained. No definite fractures areevident IMPRESSION IMPRESSION: No definite osseous injuries are seen at the left wrist. REPORT SIGNED BY DR. Austen Gage Sol Goodman MD XRAY ORDERABLE Final Resu lt * XRAY ELBOW RIGHT (01/11/2025 6:10 PM ORIENTATION AND MOBILITY INSTRUCTOR) Anatomical Region Laterality Modality Extremity Computed Radiogr aphy 01/11/2025 6:38 PM ORIENTATION AND MOBILITY INSTRUCTOR Impressions 01/11/2025 6:40 PM ORIENTATION AND MOBILITY INSTRUCTOR IMPRESSION: Probable acute, nondisplaced fracture involving the proximal aspect of the olecranon process. REPORT SIGNED BY DR. Austen Gage Narrative 01/11/2025 6:40 PM ORIENTATION AND MOBILITY INSTRUCTOR EXAM: XR ELBOW RT 3 VIEW DATE: 01/11/2025 18:07 CLINICAL: Trauma. COMPARISON: None. FINDINGS: There is a nondisplaced fracture extending through the posterior/proximal aspect of the olecranon process. Proximal radius and distal humerus appear to be intact. Some chronic degenerative findings are present. Procedure Note Austen Gage MD - 01/11/2025 EXAM: XR ELBOW RT 3 VIEW DATE: 01/11/2025 18:07 CLINICAL: Trauma. COMPARISON: None. FINDINGS: There is a nondisplaced fracture extending through theposterior/proximal aspect of the olecranon process. Proximal radius anddistal humerus appear to be intact. Some chronic degenerative findings arepresent. IMPRESSION IMPRESSION: Probable acute, nondisplaced fracture involving the proximalaspect of the olecranon process. REPORT SIGNED BY DR. Austen Gage Sol Goodman MD XRAY ORDERABLE Final Resu lt * CT Spine Cervical W/O Contrast (01/11/2025 5:56 PM ORIENTATION AND MOBILITY INSTRUCTOR) Anatomical Region Laterality Modality Spine Computed Tomogra phy 01/11/2025 6:07 PM ORIENTATION AND MOBILITY INSTRUCTOR Impressions 01/11/2025 6:09 PM ORIENTATION AND MOBILITY INSTRUCTOR IMPRESSION: No evidence of cervical spine fracture or subluxation. REPORT SIGNED BY DR. Austen Gage Narrative 01/11/2025 6:09 PM ORIENTATION AND MOBILITY INSTRUCTOR EXAM: CT SPINE CERVICAL W/O CON DATE: 01/11/2025 17:52 COMPARISON: None CLINICAL DATA: Trauma. TECHNIQUE: Thin-section contiguous transaxial images were obtained from the skull base through the upper thoracic spine. Sagittal and coronal reformatted images were also obtained through the cervical spine. FINDINGS: Cervical spine alignment is anatomic. No evidence of fracture or subluxation. Mild degenerative disc change at C6-C7. No significant soft tissue abnormalities are evident. Procedure Note Austen Gage MD - 01/11/2025 EXAM: CT SPINE CERVICAL W/O CON DATE: 01/11/2025 17:52 COMPARISON: None CLINICAL DATA: Trauma. TECHNIQUE: Thin-section contiguous transaxial images were obtained fromthe skull base through the upper thoracic spine. Sagittal and coronalreformatted images were also obtained through the cervical spine. FINDINGS: Cervical spine alignment is anatomic. No evidence of fracture orsubluxation. Mild degenerative disc change at C6-C7. No significant softtissue abnormalities are evident. IMPRESSION IMPRESSION: No evidence of cervical spine fracture or subluxation. REPORT SIGNED BY DR. Austen Gage us Sol Goodman MD CT ORDERABLE Final Resu lt * CT Head W/O Contrast W/O 3D (01/11/2025 5:56 PM ORIENTATION AND MOBILITY INSTRUCTOR) Anatomical Region Laterality Modality Head Computed Tomogra phy 01/11/2025 5:58 PM ORIENTATION AND MOBILITY INSTRUCTOR Impressions 01/11/2025 5:59 PM ORIENTATION AND MOBILITY INSTRUCTOR IMPRESSION: Right frontal scalp soft tissue swelling and laceration. No skull fracture seen. No intracranial bleed. REPORT SIGNED BY DR. Ambrosio Willard Narrative 01/11/2025 5:59 PM ORIENTATION AND MOBILITY INSTRUCTOR EXAM: CT HEAD (without contrast) DATE: 01/11/2025 17:52 COMPARISON: None submitted. CLINICAL DATA: Head trauma. ADDITIONAL CLINICAL DATA: Headache. TECHNIQUE: Non-contrast CT scan of the head with thin-section contiguous transaxial images from the skull base to the vertex. FINDINGS: Right frontal scalp soft tissue swelling and laceration. No skull fracture seen. No intraparenchymal or extra-axial hemorrhage. No subfalcine or uncal herniation. Nondilated ventricles. Procedure Note Ambrosio Willard MD - 01/11/2025 EXAM: CT HEAD (without contrast) DATE: 01/11/2025 17:52 COMPARISON: None submitted. CLINICAL DATA: Head trauma. ADDITIONAL CLINICAL DATA: Headache. TECHNIQUE: Non-contrast CT scan of the head with thin-section contiguoustransaxial images from the skull base to the vertex. FINDINGS: Right frontal scalp soft tissue swelling and laceration. No skull fractureseen. No intraparenchymal or extra-axial hemorrhage. No subfalcine oruncal herniation. Nondilated ventricles. IMPRESSION IMPRESSION: Right frontal scalp soft tissue swelling and laceration. No skull fractureseen. No intracranial bleed. REPORT SIGNED BY DR. Ambrosio Willard us Sol Goodman MD CT ORDERABLE Final Resu lt * ABORh Confirm (Lab Use Only) (01/11/2025 5:42 PM ORIENTATION AND MOBILITY INSTRUCTOR) Group and Rh O Positive 01/11/2025 6:32 PM ORIENTATION AND MOBILITY INSTRUCTOR [facility] Blood 01/11/2025 5:42 PM ORIENTATION AND MOBILITY INSTRUCTOR 01/11/2025 6:13 PM ORIENTATION AND MOBILITY INSTRUCTOR us Sol Goodman MD BLOOD BANK ORDERABLE Final Result Performing Organization Address City/[facility] Co de Phone [place] [address] * Extra Tube-Coag (Lab Use Only) (01/11/2025 5:42 PM ORIENTATION AND MOBILITY INSTRUCTOR) Blood BLOOD SPECIMEN / Unknown 01/11/2025 5:42 PM ORIENTATION AND MOBILITY INSTRUCTOR 01/11/2025 5:47 PM ORIENTATION AND MOBILITY INSTRUCTOR us Sol Goodman MD COAGULATION ORDERABLE Geetha l Result Performing Organization Address [facility] Co de Phone Number [address] [address] * Extra Tube PST (Lab Use Only) (01/11/2025 5:42 PM ORIENTATION AND MOBILITY INSTRUCTOR) Blood BLOOD SPECIMEN / Unknown 01/11/2025 5:42 PM ORIENTATION AND MOBILITY INSTRUCTOR 01/11/2025 5:47 PM ORIENTATION AND MOBILITY INSTRUCTOR Result Ana Goodman MD CHEMISTRY ORDERABLE Final Result Performing Organization Address [facility] Co de Phone Number [facility] [address] [place] [address] * Extra Tube-SST (Lab Use Only) (01/11/2025 5:42 PM ORIENTATION AND MOBILITY INSTRUCTOR) Blood BLOOD SPECIMEN / Unknown 01/11/2025 5:42 PM ORIENTATION AND MOBILITY INSTRUCTOR 01/11/2025 5:47 PM ORIENTATION AND MOBILITY INSTRUCTOR Result Ana Goodman MD CHEMISTRY ORDERABLE Final Result Performing Organization Address [facility] Phone Number [facility] [address] [place] [address] * Extra Tube-Blood Bank (Lab Use Only) (01/11/2025 5:42 PM ORIENTATION AND MOBILITY INSTRUCTOR) Blood BLOOD SPECIMEN / Unknown 01/11/2025 5:42 PM ORIENTATION AND MOBILITY INSTRUCTOR 01/11/2025 5:47 PM ORIENTATION AND MOBILITY INSTRUCTOR Result Ana Goodman MD BLOOD BANK ORDERABLE Final Result Performing Organization Address [facility] Number [facility] [address] [place] [address] * Alcohol (ETOH), Plasma (01/11/2025 5:42 PM ORIENTATION AND MOBILITY INSTRUCTOR) ALCOHOL (ETOH), PLASMA <3 <3 mg/dL 01/11/2025 6:12 PM ORIENTATION AND MOBILITY INSTRUCTOR [facility] Blood BLOOD SPECIMEN / Unknown 01/11/2025 5:42 PM ORIENTATION AND MOBILITY INSTRUCTOR 01/11/2025 5:47 PM ORIENTATION AND MOBILITY INSTRUCTOR Result Ana Goodman MD CHEMISTRY ORDERABLE Final Result Performing Organization Address City/[facility]/ZIP Co de Phone Number [facility] [address] [facility] [place] [address] * Type and Screen (01/11/2025 5:42 PM ORIENTATION AND MOBILITY INSTRUCTOR) Group and Rh O Positive 01/11/2025 6:42 PM ORIENTATION AND MOBILITY INSTRUCTOR [facility] Antibody Screen Negative 01/11/2025 6:42 PM ORIENTATION AND MOBILITY INSTRUCTOR [facility] Blood BLOOD SPECIMEN / Unknown 01/11/2025 5:42 PM ORIENTATION AND MOBILITY INSTRUCTOR 01/11/2025 5:47 PM ORIENTATION AND MOBILITY INSTRUCTOR us Sol Goodman MD BLOOD BANK ORDERABLE Edite d Result - Final [facility] [address] [place] [id number] [facility] [address] [place] [id number] * Protime/INR (01/11/2025 5:42 PM ORIENTATION AND MOBILITY INSTRUCTOR) Pathologist [facility] [place] INR 1.0 0.9 - 1.2 01/11/2025 6:04 PM ORIENTATION AND MOBILITY INSTRUCTOR [facility] Blood BLOOD SPECIMEN / Unknown 01/11/2025 5:42 PM ORIENTATION AND MOBILITY INSTRUCTOR 01/11/2025 5:47 PM ORIENTATION AND MOBILITY INSTRUCTOR us Sol Goodman MD COAGULATION ORDERABLE Geetha l Result [facility] [address] [place], [place] [address] [address] * Platelet Count (01/11/2025 5:42 PM ORIENTATION AND MOBILITY INSTRUCTOR) Platelet Count 273 150 - 400 K/UL 01/11/2025 5:56 PM ORIENTATION AND MOBILITY INSTRUCTOR [facility] Blood BLOOD SPECIMEN / Unknown 01/11/2025 5:42 PM ORIENTATION AND MOBILITY INSTRUCTOR 01/11/2025 5:47 PM ORIENTATION AND MOBILITY INSTRUCTOR us Sol Goodman MD HEMATOLOGY ORDERABLE Final Result Performing Organization Address [facility]/ZIP Co de Phone Number [facility] [address] [place] [address] * Hemoglobin (01/11/2025 5:42 PM ORIENTATION AND MOBILITY INSTRUCTOR) Hemoglobin 18.0 14.0 - 18.0 gm/dL 01/11/2025 5:56 PM ORIENTATION AND MOBILITY INSTRUCTOR [facility] Blood BLOOD SPECIMEN / Unknown 01/11/2025 5:42 PM ORIENTATION AND MOBILITY INSTRUCTOR 01/11/2025 5:47 PM ORIENTATION AND MOBILITY INSTRUCTOR Sol Goodman MD HEMATOLOGY ORDERABLE Final Result Performing Organization Address [facility] Co de Phone Number [facility] [address] [place] [address] * POCT Chloride (01/11/2025 5:39 PM ORIENTATION AND MOBILITY INSTRUCTOR) Pathologist [facility] [place] POCT CHLORIDE 108 99 - 111 mmol/L 01/11/2025 5:42 PM ORIENTATION AND MOBILITY INSTRUCTOR [facility] 01/11/2025 5:39 PM ORIENTATION AND MOBILITY INSTRUCTOR 01/11/2025 5:42 PM ORIENTATION AND MOBILITY INSTRUCTOR [facility] POINT OF CARE TEST RESULTS F inal Result Performing Organization Address [facility] Co de Phone Number [facility] [address] [place] [address] * (ABNORMAL) POCT CREATININE (01/11/2025 5:39 PM ORIENTATION AND MOBILITY INSTRUCTOR) POCT Creatinine 1.6(H) 0.7 - 1.3 mg/dL 01/11/2025 5:42 PM ORIENTATION AND MOBILITY INSTRUCTOR [facility] 01/11/2025 5:39 PM ORIENTATION AND MOBILITY INSTRUCTOR 01/11/2025 5:42 PM ORIENTATION AND MOBILITY INSTRUCTOR [facility] POINT OF CARE TEST RESULTS F inal Result [place] [address] * POCT Lac (01/11/2025 5:39 PM ORIENTATION AND MOBILITY INSTRUCTOR) Pathologist [facility] [place] POCT LACTIC ACID 1.1 0.7 - 2.1 mmol/L 01/11/2025 5:42 PM ORIENTATION AND MOBILITY INSTRUCTOR [facility] 01/11/2025 5:39 PM ORIENTATION AND MOBILITY INSTRUCTOR 01/11/2025 5:42 PM ORIENTATION AND MOBILITY INSTRUCTOR [facility] POINT OF CARE TEST RESULTS F inal Result Performing Organization Address [facility] de Phone Number [facility] [address] * POCT Ca, Ionized (01/11/2025 5:39 PM ORIENTATION AND MOBILITY INSTRUCTOR) [facility] POCT CA IONIZED 1.31 1.13 - 1.32 mmol/L 01/11/2025 5:42 PM ORIENTATION AND MOBILITY INSTRUCTOR [facility] 01/11/2025 5:39 PM ORIENTATION AND MOBILITY INSTRUCTOR 01/11/2025 5:42 PM ORIENTATION AND MOBILITY INSTRUCTOR [facility] POINT OF CARE TEST RESULTS F inal Result Performing Organization Address [facility] de Phone Number [facility] [address] * (ABNORMAL) POCT VBG/Na/K/Glu (01/11/2025 5:39 PM ORIENTATION AND MOBILITY INSTRUCTOR) [facility] POCT pH Venous 7.33 7.30 - 7.40 01/11/2025 5:42 PM ORIENTATION AND MOBILITY INSTRUCTOR [facility] POCT pCO2 Venous 47 36 - 51 mm Hg 01/11/2025 5:42 PM ORIENTATION AND MOBILITY INSTRUCTOR [facility] POCT pO2 Venous 49(H) 35 - 45 mm Hg 01/11/2025 5:42 PM ORIENTATION AND MOBILITY INSTRUCTOR [facility] POCT HCO3 VENOUS 25 22 - 29 mmol/L 01/11/2025 5:42 PM [facility] POCT BASE EXCESS -2.0 -3.0 - 2.0 mmol/L 01/11/2025 5:42 PM [facility] POCT CSO2 81.0(L) 92.0 - 98.0 %SAT 01/11/2025 5:42 PM [facility] POCT cTCO2 26.0 mmol/L 01/11/2025 5:42 PM [facility] POCT SODIUM 147(H) 133 - 144 mmol/L 01/11/2025 5:42 PM [facility] POCT POTASSIUM 4.4 3.5 - 5.0 mmol/L 01/11/2025 5:42 PM [facility] POCT Glucose 153(H) 60 - 100 mg/dL 01/11/2025 5:42 PM [facility] 01/11/2025 5:39 PM ORIENTATION AND MOBILITY INSTRUCTOR 01/11/2025 5:42 PM [facility] POINT OF CARE TEST RESULTS F inal Result [facility] [address] [place] [address] documented in this encounter Visit Diagnoses Diagnosis Accidental fall from ladder- Primary Open fracture of right elbow, initial encounter Closed head injury, initial encounter Fall from ladder, initial encounter Elbow fracture, right, closed, initial encounter Primary hypertension Unspecified essential hypertension Mild TBI (HCC) Intracranial injury of other and unspecified nature, without mention of open intracranial wound, unspecified state of consciousness Scalp laceration, initial encounter documented in this encounter Admitting Diagnoses Diagnosis Elbow fracture, right, closed, initial encounter documented in this encounter Administered Medications Inactive Administered Medications - up to 3 most recent administrations Medication Order MAR Action Action Date Dose Rate Site saline FLUSH syringe 10 mL 10 mL, Intravenous, EVERY 8 HOURS, First dose on Tue01/11/25 at 2200, Until Discontinued Given 01/12/2025 3:30 PM ORIENTATION AND MOBILITY INSTRUCTOR 10 mL Given 01/12/2025 5:56 AM ORIENTATION AND MOBILITY INSTRUCTOR 10 mL Given 01/11/2025 10:52 PM ORIENTATION AND MOBILITY INSTRUCTOR 10 mL saline FLUSH syringe 10 mL 10 mL, Intravenous, NEEDED, Starting on Tue01/11/25 at 1919, Until 01/12/25 at 2218, Line Care acetaminophen (Ofirmev) IV infusion 1,000 mg 1,000 mg, Intravenous, ONCE, 1 dose, On Tue01/11/25 at 1800, Administer over 15 Minutes New Bag 01/11/2025 6:18 PM ORIENTATION AND MOBILITY INSTRUCTOR 1,000 mg 400 mL/hr acetaminophen (TYLENOL) tablet 650 mg 650 mg, oral, EVERY 6 HOURS, First dose on 01/12/25 at 0200, Until Discontinued Given 01/12/2025 3:26 PM ORIENTATION AND MOBILITY INSTRUCTOR 650 mg ceFAZolin (Ancef) 2 g in sterile water IV syringe 2 g, Intravenous, ONCE, 1 dose, On Tue01/11/25 at 1800, Administer over 3 MinutesIndications:lac Given 01/11/2025 5:48 PM ORIENTATION AND MOBILITY INSTRUCTOR 2 g ceFAZolin (Ancef) 2 g in sterile water IV syringe 2 g, Intravenous, EVERY 8 HOURS (NS), 3 doses, First dose on Tue01/12/25 at 1600, Last dose on Tue01/13/25 at 0800, Post-Op, Administer over 3 MinutesIndications:SURGI SAUNDRA PROPHYLAXIS Given 01/12/2025 3:26 PM ORIENTATION AND MOBILITY INSTRUCTOR 2 g diphtheria-acell pertussis-tetanus toxoids (greater than or equal to 7 years of age) (Boostrix) injection 0.5 mL 0.5 mL, IntraMUSCULAR, ONCE, 1 dose, On Tue01/11/25 at 1800Indications:clean/mi nor wound,standard immunization schedule Given 01/11/2025 6:00 PM ORIENTATION AND MOBILITY INSTRUCTOR 0.5 mL Left Deltoid fentaNYL (SUBLIMAZE) injection 25-50 mcg 25-50 mcg, Intravenous, EVERY 5 MINUTES NEEDED, 8 doses, Starting on 01/12/25 at 0952, Until 01/12/25 at 1102, Phase 1/2, ACUTE SURGICAL PAIN Given 01/12/2025 10:03 AM ORIENTATION AND MOBILITY INSTRUCTOR 50 mcg HYDROmorphone (DILAUDID) tablet 2 mg 2 mg, oral, EVERY 4 HOURS NEEDED, Starting on Tue01/11/25 at 2002, Until 01/12/25 at 2218, pain hydrOXYzine HCl (VISTARIL) injection 25 mg 25 mg, IntraMUSCULAR, ONCE NEEDED, MAY REPEAT X 1, 2 doses, Starting on 01/12/25 at 0952, Until 01/12/25 at 1102, Phase 1/2, for augmentation of narcotic based analgesia while in recovery area and unable to take PO. Not to be given within the past 6 hours. Given 01/12/2025 9:56 AM ORIENTATION AND MOBILITY INSTRUCTOR 25 mg Right Lateral Thigh iohexol 350 mgI/mL (OMNIPAQUE) 1-150 mL 1-150 mL, Intravenous, INTRA-PROCEDURE ONE TIME DOSE NEEDED, 1 dose, Starting on Tue01/11/25 at 1823, Until Tue01/11/25 at 1824, per procedure Given 01/11/2025 6:24 PM ORIENTATION AND MOBILITY INSTRUCTOR 75 mL ketorolac (ToradoL) injection 30 mg 30 mg, Intravenous, ONCE, 1 dose, On Tue01/11/25 at 1830, Maximum duration of treatment is 5 days. Given 01/11/2025 6:30 PM ORIENTATION AND MOBILITY INSTRUCTOR 30 mg ketorolac (ToradoL) injection 30 mg 30 mg, Intravenous, ONCE NEEDED, MAY REPEAT X 1, 2 doses, Starting on 01/12/25 at 1117, Until Tue01/12/25 at 2218, pain, Maximum duration of treatment is 5 days. KETOROLAC 30 MG/ML (1 ML) INJECTION SOLUTION 1 dose, Starting on Tue01/11/25 at 1823, Until Tue01/11/25 at 1830, Maximum duration of treatment is 5 days. methocarbamoL (ROBAXIN) tablet 500 mg 500 mg, oral, FOUR TIMES A DAY, First dose on Tue01/11/25 at 2200, Until Discontinued Given 01/12/2025 12:40 PM ORIENTATION AND MOBILITY INSTRUCTOR 500 mg Given 01/11/2025 10:48 PM ORIENTATION AND MOBILITY INSTRUCTOR 500 mg metoprolol (LOPRESSOR) injection 5 mg 5 mg, Intravenous, ONCE, 1 dose, On Tue01/11/25 at 1800 Given 01/11/2025 5:42 PM ORIENTATION AND MOBILITY INSTRUCTOR 5 mg metoprolol (LOPRESSOR) injection 5 mg 5 mg, Intravenous, ONCE, 1 dose, On Tue01/11/25 at 1815 Given 01/11/2025 6:12 PM ORIENTATION AND MOBILITY INSTRUCTOR 5 mg metoprolol (LOPRESSOR) injection 5 mg 5 mg, Intravenous, EVERY 6 HOURS, First dose on Tue01/12/25 at 0200, Until Discontinued Given 01/12/2025 3:26 PM ORIENTATION AND MOBILITY INSTRUCTOR 5 m g Given 01/12/2025 2:26 AM ORIENTATION AND MOBILITY INSTRUCTOR 5 mg METOPROLOL TARTRATE 5 MG/5 ML INTRAVENOUS SOLUTION 1 dose, Starting on Tue01/11/25 at 1741, Until Tue01/11/25 at 1742 nicotine (NICOTROL) 14 mg/24 hr patch 1 patch 1 patch, Transdermal, DAILY, First dose on Tue01/11/25 at 1845, Until Discontinued Patch Applied 01/12/2025 12:43 PM ORIENTATION AND MOBILITY INSTRUCTOR 1 patch Left Deltoid Patch Applied 01/11/2025 6:48 PM ORIENTATION AND MOBILITY INSTRUCTOR 1 patch Right Deltoid senna-docusate (SENNA-S) tablet 2 tablet 2 tablet, oral, DAILY, First dose (after last modification) on 01/12/25 at 1130, Until Discontinued, Post-Op sodium chloride 0.9 % IV solution at 125 mL/hr, Intravenous, CONTINUOUS, Starting on Tue01/11/25 at 1930, Until 01/12/25 at 1117 Continued in OR 01/12/2025 7:43 AM ORIENTATION AND MOBILITY INSTRUCTOR 125 mL/hr Auto Rate Verify 01/12/2025 6:25 AM ORIENTATION AND MOBILITY INSTRUCTOR 125 mL/ hr New Bag 01/12/2025 5:56 AM ORIENTATION AND MOBILITY INSTRUCTOR 125 mL/hr documented in this encounter Active and Recently Administered Medications Times are shown in ORIENTATION AND MOBILITY INSTRUCTOR. Scheduled Medication Order 01/10/2025 01/11/2025 01/12/2025 saline FLUSH syringe 10 mL 10 mL, Intravenous, EVERY 8 HOURS, First dose on Tue01/11/25 at 2200, Until Discontinued 2252 (Given - Provider: Venkat Dotson RN) 0556 (Given - Provider: Venkat Dotson RN)0630 (APR Hold - Provider: Interface, Incoming Adt - Reason: Procedure)1045 (MAR Unhold - Provider: Nathalie Norton, TRAY)1530 (Given - Provider: Nathalie Norton RN) acetaminophen (Ofirmev) IV infusion 1,000 mg (COMPLETED) 1,000 mg, Intravenous, ONCE, 1 dose, On Tue01/11/25 at 1800, Administer over 15 Minutes 1818 (New Bag - Provider: Betty Ruvalcaba RN)1833 (Stopped - Provider: Betty Ruvalcaba RN) acetaminophen (TYLENOL) tablet 650 mg 650 mg, oral, EVERY 6 HOURS, First dose on Tue01/12/25 at 0200, Until Discontinued 0231 (Declined - Pro vider: Venkat Dotson RN)0630 (APR Hold - Provider: Interface, Incoming Adt - Reason: Procedure)0800 (Not Given - Provider: Nathalie Norton RN - Reason: Procedure)1045 (APR Unhold - Provider: Nathalie Norton RN)1526 (Given - Provider: Nathalie Norton RN) ceFAZolin (Ancef) 2 g in sterile water IV syringe (COMPLETED) 2 g, Intravenous, ONCE, 1 dose, On Tue01/11/25 at 1800, Administer over 3 Minutes 1748 (Given - Provider: Betty Ruvalcaba RN) ceFAZolin (Ancef) 2 g in sterile water IV syringe 2 g, Intravenous, EVERY 8 HOURS (NS), 3 doses, First dose on Tue01/12/25 at 1600, Last dose on Tue01/13/25 at 0800, Post-Op, Administer over 3 Minutes 1526 (Given - Provid er: Nathalie Norton RN) diphtheria-acell pertussis-tetanus toxoids (greater than or equal to 7 years of age) (Boostrix) injection 0.5 mL (COMPLETED) 0.5 mL, IntraMUSCULAR, ONCE, 1 dose, On Tue01/11/25 at 1800 1800 (Given - Provider: Betty Ruvalcaba RN) ketorolac (ToradoL) injection 30 mg (COMPLETED) 30 mg, Intravenous, ONCE, 1 dose, On Tue01/11/25 at 1830, Maximum duration of treatment is 5 days. 1830 (Given - Provider: Betty Ruvalcaba RN) methocarbamoL (ROBAXIN) tablet 500 mg 500 mg, oral, FOUR TIMES A DAY, First dose on Tue01/11/25 at 2200, Until Discontinued 2247 (Given - Provider: Venkat Dotson RN) 0630 (APR Hold - Provider: Interface, Incoming Adt - Reason: Procedure)0800 (Not Given - Provider: Nathalie Norton RN - Reason: Procedure)1045 (APR Unhold - Provider: Nathalie Norton RN)1240 (Given - Provider: Nathalie Norton RN) metoprolol (LOPRESSOR) injection 5 mg (COMPLETED) 5 mg, Intravenous, ONCE, 1 dose, On Tue01/11/25 at 1800 1742 (Given - Provider: Betty Ruvalcaba RN) metoprolol (LOPRESSOR) injection 5 mg (COMPLETED) 5 mg, Intravenous, ONCE, 1 dose, On Tue01/11/25 at 1815 1812 (Given - Provider: Rangel Beltre, TRAY) metoprolol (LOPRESSOR) injection 5 mg 5 mg, Intravenous, EVERY 6 HOURS, First dose on Tue01/12/25 at 0200, Until Discontinued 0226 (Given - Provid er: Venkat Dotson RN)0630 (APR Hold - Provider: Interface, Incoming Adt - Reason: Procedure)0800 (Not Given - Provider: Nathalie Norton RN - Reason: Procedure)1045 (APR Unhold - Provider: Nathalie Norton RN)1526 (Given - Provider: Nathalie Norton RN) nicotine (NICOTROL) 14 mg/24 hr patch 1 patch 1 patch, Transdermal, DAILY, First dose on Tue01/11/25 at 1845, Until Discontinued 1848 (Patch Applied - Provider: Betty Ruvalcaba RN) 0630 (APR Hold - Provider: Interface, Incoming Adt - Reason: Procedure)0800 (Not Given - Provider: Nathalie Norton RN - Reason: Procedure)1045 (MAR Unhold - Provider: Nathalie Norton RN)1240 (Patch Removed - Provider: Nathalie Norton RN)1243 (Patch Applied - Provider: Nathalie Norton RN)1613 (Due: Patch Removed - Provider: Ondischarge Autodiscontinue - Comment: Time automatically adjusted from order being discontinued) senna-docusate (SENNA-S) tablet 2 tablet 2 tablet, oral, DAILY, First dose (after last modification) on Tue01/12/25 at 1130, Until Discontinued, Post-Op 1130 (Declined - Pro vider: Nathalie Norton RN) Continuous Medication Order 01/10/2025 01/11/2025 01/12/2025 sodium chloride 0.9 % IV solution (CANCELED) at 125 mL/hr, Intravenous, CONTINUOUS, Starting on Tue01/11/25 at 1930, Until 01/12/25 at 1117 2251 (New Bag - Provider: Venkat Dotson, TRAY) 0319 (Auto Rate Verify - Provider: Venkat Dotson RN)0556 (New Bag - Provider: Venkat Dotson, TRAY)0625 (Auto Rate Verify - Provider: Venkat Dotson, TRAY)0630 (MAR Hold - Provider: Interface, Incoming Adt - Reason: Procedure)0743 (Continued in OR - Provider: Wero Braga CRNA)0835 (Stopped - Provider: Wero Braga CRNA)1045 (MAR Unhold - Provider: Nathalie Norton, TRAY) PRN Medication Order 01/10/2025 01/11/2025 01/12/2025 saline FLUSH syringe 10 mL 10 mL, Intravenous, NEEDED, Starting on Tue01/11/25 at 1919, Until 01/12/25 at 2218, Line Care 0630 ([facility] Hold - Provider: Interface, Incoming Adt - Reason: Procedure)1045 ([facility] Unhold - Provider: Nathalie Norton, TRYA) bisacodyl (DULCOLAX) suppository 1 suppository 1 suppository, Rectal, DAILY NEEDED, Starting on 01/12/25 at 1045, Until 01/12/25 at 2218, Post-Op, for constipation if patient unable to take oral laxative fentaNYL (SUBLIMAZE) injection 25-50 mcg (CANCELED) 25-50 mcg, Intravenous, EVERY 5 MINUTES NEEDED, 8 doses, Starting on 01/12/25 at 0952, Until 01/12/25 at 1102, Phase 1/2, ACUTE SURGICAL PAIN 1003 (Given - Provid er: Archana Garcia RN) HYDROmorphone (DILAUDID) tablet 2 mg 2 mg, oral, EVERY 4 HOURS NEEDED, Starting on Tue01/11/25 at 2002, Until 01/12/25 at 2218, pain 0630 ([facility] Hold - Provider: Interface, Incoming Adt - Reason: Procedure)1045 (MAR Unhold - Provider: Nathalie Norton RN) hydrOXYzine HCl (VISTARIL) injection 25 mg (CANCELED)(Linked Group 1) 25 mg, IntraMUSCULAR, ONCE NEEDED, MAY REPEAT X 1, 2 doses, Starting on 01/12/25 at 0952, Until 01/12/25 at 1102, Phase 1/2, for augmentation of narcotic based analgesia while in recovery area and unable to take PO. Not to be given within the past 6 hours. 0956 (Given - Provid er: Archana Garcia RN) iohexol 350 mgI/mL (OMNIPAQUE) 1-150 mL (COMPLETED) 1-150 mL, Intravenous, INTRA-PROCEDURE ONE TIME DOSE NEEDED, 1 dose, Starting on Tue01/11/25 at 1823, Until Tue01/11/25 at 1824, per procedure 1824 (Given - Provider: Chayo Palomino) ketorolac (ToradoL) injection 30 mg 30 mg, Intravenous, ONCE NEEDED, MAY REPEAT X 1, 2 doses, Starting on 01/12/25 at 1117, Until 01/12/25 at 2218, pain, Maximum duration of treatment is 5 days. naloxone (NARCAN) injection 0.1 mg 0.1 mg, Intravenous, EVERY 1 MINUTE PRN, Starting on 01/12/25 at 1045, Until 01/12/25 at 2218, Post-Op, Opiate Reversal ondansetron (Zofran) injection 4 mg 4 mg, Intravenous, EVERY 8 HOURS NEEDED, Starting on 01/12/25 at 1045, Until 01/12/25 at 2218, Post-Op, nausea & vomiting, After transfer out of recovery oxyCODONE (immediate release) (ROXICODONE) tablet 2.5-5 mg 2.5-5 mg, oral, EVERY 4 HOURS NEEDED, Starting on 01/12/25 at 1045, Until 01/12/25 at 2218, Post-Op, Pain, when taking PO tobramycin (NEBCIN) powder (OR) (CANCELED) INTRA-PROCEDURE NEEDED, Starting on 01/12/25 at 0904, Until 01/12/25 at 0938, Intra-Op 0904 (Given - Provid er: Rangel Kebede MD - Comment: in incision at closing) vancomycin (VANCOCIN) powder (OR) (CANCELED) INTRA-PROCEDURE NEEDED, Starting on 01/12/25 at 0904, Until 01/12/25 at 0938, Intra-Op 0904 (Given - Provid er: Rangel Kebede MD - Comment: in incision at closing) Linked Groups Order Group 1: hydrOXYzine pamoate (Vistaril) capsule 25 mg (CANCELED) 25 mg, oral, ONCE NEEDED, MAY REPEAT X 1, 2 doses, Starting on 01/12/25 at 0952, Until 01/12/25 at 1102, Phase 1/2, for augmentation of narcotic based analgesia while in recovery area. Not to be used if given within the past 6 hours. Or hydrOXYzine HCl (VISTARIL) injection 25 mg (CANCELED)Jump to med 25 mg, IntraMUSCULAR, ONCE NEEDED, MAY REPEAT X 1, 2 doses, Starting on 01/12/25 at 0952, Until 01/12/25 at 1102, Phase 1/2, for augmentation of narcotic based analgesia while in recovery area and unable to take PO. Not to be given within the past 6 hours. documented in this encounter Care Teams Thermocouple Tester Relationship Specialty Start Date End Date Doctor, No No ad PCP - General Radiology 01/11/25 documented as of this encounter
--- OUTSIDE RECORDS SUMMARY | 2025-01-12 07:30 | XMS_ITS | Encounter Summary ---
Author Organization [facility] Address [address] [place] [id number] Care Team Providers Care County Engineer Name Role Phone Doctor, No Primary Care Provider Unavailabl e Reason for Visit * Reason Comments Fall * Inpatient Admission Specialty Diagnoses / Procedures Referred By Citlaly t Referred To Contact Diagnoses Elbow fracture, right, closed, initial encounter Referral ID Status Reason Start Date Expiration Date Visits Re quested Visits Authorized [id number] 1 1 Encounter Details Date Type Department Care Team (Late st Contact Info) Description 01/12/2025 7:30 AM RADAR TECHNICIAN - 01/12/2025 10:50 AM RADAR TECHNICIAN Surgery [facility] Operating Room [address] [place] [id number] Rangel Kebede MD [address] [facility] [address] [facility] [address] [place] [address] IRRIGATION DEBRIDEMENT RIGHT ELBOW Surgery Details Date/Time Status Location OR Service Patient Class Case Class Case Type Trauma Case? 01/12/2025 7:30 AM Posted NMR ORS 14 Orthopedic Inpatient Class D Panel 1 Procedure LRB Anes Op Region Wound Class Comments IRRIGATION DEBRIDEMENT RIGHT ELBOW Right General Arm Dirty (IV) OPEN REDUCTION INTERNAL FIXA TION RIGHT OLECRANON Right General Arm, upper Dirty (IV) Surgeon Surgeon Role Service Panel Rangel Kebede MD Primary Orthopedic 1 documented in this encounter Social History Tobacco Use Types Packs/Day Years [...] any time in the past 12 m [facility], were you homeless or living in a mcc (including now)? No 01/11/2025 [facility] Utilities Answer Date Recorded In the past 12 months has th e [employer], gas, oil, or water company threatened to shut off services in your home? No 01/11/2025 Sex and Gender Information Value Date Recorded Sex Assigned at Not on file Legal Sex Male 5:32 PM RADAR TECHNICIAN Gender Identity Not on file Sexual Orientation Not on file documented as of this encounter Last Filed Vital Signs Vital Sign Reading Time Taken Comments Blood Pressure 160/98 01/12/2025 10:45 AM RADAR TECHNICIAN Pulse 67 01/12/2025 10:45 AM RADAR TECHNICIAN Temperature 36.7 C (98 F) 01/12/2025 10:45 AM RADAR TECHNICIAN Respiratory Rate 18 01/12/2025 10:45 AM RADAR TECHNICIAN Oxygen Saturation 93% 01/12/2025 10:45 AM RADAR TECHNICIAN Inhaled Oxygen Concentration - - Weight 94 kg (207 lb 3.7 oz) 01/12/2025 5:56 AM RADAR TECHNICIAN Height 175.3 cm (5' 9) 01/12/2025 5:56 AM RADAR TECHNICIAN Body Mass Index 30.6 01/12/2025 5:56 AM RADAR TECHNICIAN documented in this encounter Discharge Summaries * [...] Your Medications These medications were sent to [address] [address] Hours: Mon-Fri: 7:30AM-6PM / Sat: 9AM-3PM / [...] in 2 weeks for your elbow fracture. [facility], [facility] Reason for Occupational Therapy: Evaluation and Treatment You're not required to be seen at the location specified above. Depending on scheduling, convenience, and availability, you may be seen at a different site. PENDING TEST RESULTS: N/A HOSPITAL COURSE: Simeon Davidson is a 49 year-old male with past medical history of hypertension (no meds) who was admitted to [facility] on 01/11/2025 following fall from ladder while puttingup [employer] lights sustaining open right olecranon fracture as [...] I&D and ORIF on 01/12. NWB to ALEX, splint immobilization x 2 weeks. PT/OT. Multimodal [...] prn. Past Medical History: Hypertension - no HOSPITAL SALES REPRESENTATIVE medications PROCEDURES: Orthopedic surgery 01/12/2025 1. Irrigation [...] Meka Paige MD at 01/14/2025 9:18 AM RADAR TECHNICIAN R TECHNICIAN R TECHNICIAN documented in this encounter Medications at Time of Discharge acetaminophen (TYLENOL) 325 mg oral tablet Take 3 tablets (975 mg) by mouth every 6 (six) hours. 01/12/2025 methocarbamoL (ROBAXIN) 500 mg oral tablet Take 1-2 tablets (500-1,000 mg) by mouth every 6 (six) hours as needed. 60 tablet 01/13/2025 9:15 AM RADAR TECHNICIAN 01/12/2025 oxyCODONE, immediate release, (ROXICODONE) 5 mg oral tablet Take 1 tablet (5 mg) by mouth every 6 (six) hours as needed. 20 tablet 01/13/2025 9:15 AM RADAR TECHNICIAN 01/12/2025 senna-docusate (SENNA-S) 8.6-50 mg oral tablet Take 1 tablet by mouth once daily. 10 tablet 01/13/2025 9:15 AM RADAR TECHNICIAN 01/12/2025 testosterone cypionate 200 mg/mL IM Syringe [...] RN - 01/12/2025 4:13 PM CST Simeon Stuart 1975 [id number] P: Discharge A: Discharged ambulatory to home at 1613 escorted by spouse I: Discharge information and arrangements included: review of written discharge instructions, review of purpose and side effects of new medication, prescriptions sent with patient, belongings list completed. R:Patient, significant Other expressed understanding of information. R TECHNICIAN * Lizzie Gunter PA-C - 01/12/2025 7:39 [...] interval history. PAST MEDICAL HISTORY: No Change HOSPITAL SALES REPRESENTATIVE MEDICATIONS: Essential HOSPITAL SALES REPRESENTATIVE meds restarted CURRENT MEDS: Current Facility-Administered Medications: [...] on guard, watchful, or easily startled? no [place] numb or detached from people, activities, or your surroundings? no [place] guilty or unable to stop blaming yourself [...] patient's care with bedside RN Nathalie at [facility], Social Work, Kacie charge nurse. I have seen this patient and discussed my findings and exam with Dr. Paige. The assessment and plan is based on our joint decision making. ASSESSMENT/PLAN: Simeon Davidson is a 49 year-old male with past medical history of hypertension (no meds) who was admitted to [facility] on 01/11/2025 following fall from ladder while puttingup [employer] lights sustaining open right olecranon fracture as [...] prn Past Medical History: Hypertension - no HOSPITAL SALES REPRESENTATIVE medications Lines: PIV Fluids/Electrolytes/Nutrition: NPO Ulcer Prophylaxis: [...] Plan: probably home later today vs tomorrow 11 am Lizzie Gunter PA-C Trauma & Acute Care Surgery R TECHNICIAN * Venkat Dotson RN - 01/12/2025 3:21 AM CST Med-Surg Care Progression Note Type: Shift to shift summary Length of stay: 1 days Code Status: Full Code Primary Problem: Fall from a lader, R face lac, R Elbow fx Summary: F- Feeding & Fluids: tolerating regular diet, thin liquids. NPO since midnight . Going to OR [id number] with ortho. A- Analgesic & Anticoagulation: Comfort [...] x2 D- Discharge: TBD Venkat Dotson, RN R TECHNICIAN R TECHNICIAN * Venkat Dotson, RN - 01/11/2025 9:55 PM CST P. Admission A. Condition on Admit: alert. Patient/Family Concerns: Patient expressed concern about pain relief . I. Initial Interventions included: administered medication for pain. Orientation to Unit: Patient, spouse, friend oriented to how to call for help, name of assigned healthcare analyst, Patient Information booklet, initial physician orders, hourly rounding procedures, belongings checklist, unit and plan of care. R. Patient, spouse, friend expressed understanding of information.. R TECHNICIAN documented in this encounter H&P Notes * Flo Lawson MD - 01/11/2025 6:00 PM CST TRAUMA ADMISSION HISTORY AND PHYSICAL Patient Name: Simeon Davidson Address: No address on file. Age:49 y.o. Sex: male Admission Date/Time: 01/11/2025 5:32 PM Admitting provider: No admitting provider for patient encounter. Hospital Attending Physician: Sol Ulloa MD Primary Care Provider: No primary care provider on file. Informant: patient and outpatient record Patient seen on 01/11/2025 at 545 pm. CHIEF COMPLAINT:partial activation HPI: Scene run aircare from [place]. Did not stop at outside facility we had advance notificationfor partial trauma activation. Hemodynamically hypertensive en route treated with IV narcotic for pain control of right elbow. Amnestic to event remembers going to shed to pull out ladder. He thinks it is Tuesday (Tuesday) was planing on putting up [employer] lights. Does not remember eating today or [...] close in ED Right elbow fracture Called scallop binder orthopedist Dr Kebede, reviewed images old changes [...] in the patient's condition. Flo Lawson MD R TECHNICIAN documented in this encounter Consult Notes * Rangel Kebede MD - 01/12/2025 9:29 AM CSTAssociated Order(s): CONSULT ORTHOPEDIC SURGERY ORTHOPEDIC SURGERY CONSULT Patient Name: Simeon Davidson [address]: [address] [place] [address] Age: 49 y.o. Sex: male Admission Date/Time: 01/11/2025 5:32 PM Primary Care Provider: Deisi Naranjo Informant: patient CHIEF COMPLAINT: Right elbow pain, fall from ladder HPI: This is a 49-year-old man who presents to the hospital after a fall from a ladder while he wasputting up [employer] lights. He is about 8 to 10 [...] orthopedic perspective Will Kebede MD Orthopedic Trauma [facility] R TECHNICIAN documented in this encounter Nursing Notes * Nathalie Norton RN - 01/12/2025 2:46 PM CST Problem: Falls/Injury-Risk of Goal: Absence of Falls/Injury Outcome: Met this shift Flowsheets Taken 01/12/2025 0115 by Venkat Dotson RN Environmental Safety Interventions: Standard Interventions in Place Mobility Safety Interventions: Standard Interventions in Place Elimination Safety Interventions: Standard Interventions in Place Taken 01/11/2025 1834 by Betty Ruvalcaba federal judge: Standard Interventions in Place Note: No falls. Problem: Communication Goal: Demonstrates/exhibits ability to communicate needs effectively Outcome: Met this shift Note: Uses call light appropriately to make wants and needs known. Problem: Venous Thromboembolism (VTE) Goal: Absence of venous thromboembolism (VTE) Outcome: Met this shift R TECHNICIAN * Archana Garcia RN - 01/12/2025 10:[address] Rice updated regarding BP. No orders in PACU to treat. Report given to W RN Lungs clear, sats 97% on RA Dressing to right arm D/I, ice on CMS good Patient meets criteria to be transferred to R TECHNICIAN * Kaley Samuels RN - 01/12/2025 7:17 AM CST Pt's Nubia arrived. Pt's cell phone given to Nubia. Dr. Rice updated regarding nicotine patch and elevated blood pressure. No new orders . Kaley Samuels RN R TECHNICIAN * Kaley Samuels RN - 01/12/2025 6:49 [...] been discontinued. Awaiting Dr. Kebede. Kaley Pitt R TECHNICIAN * Venkat Dotson RN - 01/11/2025 11:35 PM CST Problem: Falls/Injury-Risk of Goal: Absence of Falls/Injury Outcome: Met this shift R TECHNICIAN documented in this encounter OR Notes * OR Surgeon - Rangel Kebede MD - 01/12/2025 8:23 AM CST ORTHOPEDIC OPERATIVE REPORT PREOPERATIVE DIAGNOSIS: Open right olecranon fracture POSTOPERATIVE DIAGNOSIS: Same PROCEDURE: 1. Irrigation and debridement of open fracture, right olecranon, deepest layer is bone and is excisional 2. Open reduction internal fixation right olecranon fracture SURGEON: Rangel Kebede MD CREPE MACHINE OPERATOR: Primo Spain PA-C, whose assistance was required for positioning, prep/drape, exposure, debridement, application of internal fixation, and closure ANESTHESIA: General ESTIMATED BLOOD LOSS: 20 cc TOURNIQUET TIME: About 30 minutes@ 250 mmHg COMPLICATIONS: None SPECIMENS: None IMPLANTS: Implant Name Type Inv. Item Serial No. Regroover Lot No. LRB No. Used Action PL 2.7/3.5 PROX OLECR 2H/R/73M - [id number] Plate PL 2.7/3.5 PROX OLECR 2H/R/73M [employer] Right 1 Implanted SCREW 2.7MM VA LCK SLF-TP 28MM - [id number] Screw/[place] SCREW 2.7MM VA LCK SLF- TP 28MM [employer] Right 1 Implanted SCREW 2.7MM VA LCK SLF-TP 34MM - [id number] Screw/[place] SCREW 2.7MM VA LCK SLF- TP 34MM [employer] Right 1 Implanted SCR 2.7 METPHYSEAL SLF-TP 56MM - [id number] Screw/[place] SCR 2.7 METPHYSEAL SLF- TP 56MM [employer] Right 1 Implanted SCREW 2.7MM VA LCK SLF-TP 12MM - [id number] Screw/[place] SCREW 2.7MM VA LCK SLF- TP 12MM [employer] Right 1 Implanted SCR SYN CRTX S/T3.5/26 204.826 - [id number] Screw/[place] SCR SYN CRTX S/T3.07/16 204.826 [employer] Right 1 Implanted SCR SYN CRTX S/T3.34 204.834 - [id number] Screw/[place] SCR SYN CRTX S/T3.34 204.834 [employer] Right 1 Implanted INDICATIONS: Patient is a [id number] 49-year-old man who fell off a ladder [...] to the bone nicely, securing the fracture. Ithen placed an additional 2 screws within the [...] Follow-up: 2 weeks Dispo: Home later today R TECHNICIAN documented in this encounter ED Notes * [...] complications. Emely Bishop MD Cosigned by Sol Ulloa MD at 01/12/2025 1:59 AM RADAR TECHNICIAN R TECHNICIAN R TECHNICIAN Associated attestation - Sol Ulloa MD - 01/12/2025 1:59 AM RADAR TECHNICIAN ATTENDING ADDENDUM: This patient was seen in conjunction with the Resident. I was present for critical components of procedure. I agree with the documentation above. Sol Ulloa MD * Joelle Yancey RN - 01/11/2025 7:16 PM CST Pt having head sutured. and her friend arrived and are at bedside. R TECHNICIAN * Betty Ruvalcaba RN - 01/11/2025 6:51 PM CST Patient moved to cart 25. Report to Nicki RN, who will assume care of patient at this time. R TECHNICIAN * Betty Ruvalcaba RN - 01/11/2025 6:27 PM CST C spine cleared by Dr. Lawson. Patient sitting up in bed. OK for water. R TECHNICIAN * Betty Ruvalcaba RN - 01/11/2025 6:11 PM CST Chrissie updated and en route to hospital [phone] R TECHNICIAN * Betty Ruvalcaba RN - 01/11/2025 5:51 [...] to CT scan, monitored with ED staff. R TECHNICIAN * Sol Ulloa MD - 01/11/2025 5:34 PM CST Emergency Department Note History of Present Illness Chief Complaint Fall DANIELE Davidson is a 49 y.o. male with a history of hypertension who presents to the emergency department via [facility] for evaluation of a fall. The patient is not anticoagulated. Per EMS report, the patient was hanging Bryant lights at home this afternoon when he [...] -- -- 97 22 95 % 01/11/25 182 (!) 202/118 -- 89 21 97 % 01/11/25 181 (!) 203/106 -- 93 20 97 % [...] (!) 108 (!) 28 94 % 01/11/25 1740 (!) 210/126 -- (!) 108 (!) 37 [...] Results Component Value Date EKG 01/11/2025 Comment: [facility] Test Date: 2025-01-11 Pat Name: SIMEON DAVIDSON Department: ED Room: 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[id number] : 1975 Requested By: SOL ULLOA MD Order Number: [id number] Reading MD: SOL ULLOA MD Measurements Intervals [place] Rate: 85 P: 61 CT: 126 QRS: 33 QRSD: 94 T: 4 QT: 334 QTc: 376 Interpretive Statements SINUS RHYTHM POSSIBLE LEFT ATRIAL ENLARGEMENT BORDERLINE ECG No previous ECG available for comparison Electronically Signed On 01-11-2025 18:24:08 RADAR TECHNICIAN by SOL ULLOA MD Independent Interpretation CT head with no evidence of intracranial bleed ED Course Medications Administered Medications acetaminophen (Ofirmev) IV infusion 1,000 mg (1,000 mg Intravenous New Bag 01/11/25 3686) WATER FOR INJECTION, STERILE INJECTION SOLUTION WRAPPER ( Canceled Entry 01/11/25 1800) CEFAZOLIN 2 GRAM SOLUTION FOR INJECTION WRAPPER ( Canceled Entry 01/11/25 1800) diphtheria-acell pertussis-tetanus toxoids (greater than or equal to 7 years of age) (Boostrix) injection 0.5 mL (0.5 mL IntraMUSCULAR Given 01/11/25 1800) ceFAZolin (Ancef) 2 g in sterile water IV syringe (2 g Intravenous Given 01/11/25 1748) metoprolol (LOPRESSOR) injection 5 mg (5 mg Intravenous Given 01/11/25 174) metoprolol (LOPRESSOR) injection 5 mg (5 mg Intravenous Given 01/11/25 181) iohexol 350 mgI/mL (OMNIPAQUE) 1-150 mL (75 mL Intravenous Given 01/11/25 1824) ketorolac (ToradoL) injection 30 mg (30 mg Intravenous Given 01/11/25 183) Procedures Splint Placement Procedure: Splint Placement Indication: [...] no complications. Discussion of Management Trauma - [facility] Stabilization Course (17:32) - The patient [...] Medical Decision Making / Diagnosis MIPS None [facility] Simeon Davidson is a 49 y.o. [...] to document services personally performed by Sol Ulloa MD, based on my observations and the provider's statements to me. Provider Attestation: Portions of this medical record were completed by a scribe. UPON MY REVIEW AND AUTHENTICATION BY ELECTRONIC SIGNATURE, this confirms (a) I performed the applicable clinical services, and (b) the record is accurate. Sol Ulloa MD 01/11/25 01/11/2025 [facility] EMERGENCY DEPARTMENT R TECHNICIAN documented in this encounter Miscellaneous Notes * Med Reconciliation - Jazmin Go - 01/11/2025 8:31 PM CST PHARMACY MEDICATION RECONCILIATION NOTE MEDICATION RECONCILIATION on admission by pharmacy has been completed. Prior to admission medications were reviewed with outside pharmacy records, the patient's family, and the patient. The HOSPITAL SALES REPRESENTATIVE medication list has been updated and reflected in the chart below. Please use the HOSPITAL SALES REPRESENTATIVE medication section for ordering home doses during admission. Medication related issues: Added: all medications to HOSPITAL SALES REPRESENTATIVE list Testosterone: family reports that the patient gets this through [facility] and it is delivered to their house. Updated HOSPITAL SALES REPRESENTATIVE list per family report and picture of [...] Medications: None This patient obtains medications from [id number] - [place], [place] - [address] [facility] [address] [facility] Thank you for the opportunity to participate in the care of this patient. Phone #:[phone] Jazmin Rodriges [employer]ch[employer] Displayer Time spent reconciling meds:15 min Location: face to face encounter Cosigned by Edita Adkins, Pharm D at 01/11/2025 9:02 PM RADAR TECHNICIAN R TECHNICIAN R TECHNICIAN documented in this encounter Plan of Treatment Scheduled Referrals Name Type Priority Associated Diagnoses Orde r Schedule Follow Up Follow Up Routine Ordered: 01/12 Follow Up with Occupational Therapy Follow Up Routine Closed head injury, initial encounter Fall from ladder, initial encounter Ordered: 01/12/2025 Follow up with [facility] Follow Up Routine Ordered: 12/23 documented as of this encounter Procedures Procedure Name Priority Date/Time Associated Diagnosis Comments XR C ARM EXTREMITY RT STAT 01/12/2025 9:05 AM RADAR TECHNICIAN OPEN TREATMENT ULNAR FRACTURE PROXIMAL END Class D 01/12/2025 7:45 AM RADAR TECHNICIAN Olecranon fracture, right, open type I or II, initial encounter IRRIGATION DEBRIDEMENT ARM Class D 01/12/2025 7:45 AM RADAR TECHNICIAN Olecranon fracture, right, open type I or II, initial encounter BASIC METAB PROFILE Timed Procedure 01/12/2025 5 :02 AM RADAR TECHNICIAN EXTRA TUBE-EDTA Routine 01/12/2025 5:[address] EXTREM UPPER RT W/O CON STAT 01/11/2025 10:[address] TRAUMA CHEST/ABD/PEL W CON STAT 01/11/2025 6:[address] RECONSTRUCTION SPINE LUMBAR STAT 01/11/2025 6:23 PM RADAR TECHNICIAN ELECTROCARDIOGRAM STAT 01/11/2025 6:[address] RECONSTRUCTION SPINE THORACIC STAT 01/11/2025 6:22 PM RADAR TECHNICIAN XR TIBIA & FIBULA LT STAT 01/11/2025 6:14 PM RADAR TECHNICIAN XR WRIST LT 3 VIEW STAT 01/11/2025 6: 12 PM RADAR TECHNICIAN XR ELBOW RT 3 VIEW STAT 01/11/2025 6: [address] SPINE CERVICAL W/O CON STAT 01/11/2025 5:[address] HEAD W/O CON W/O 3D STAT 5:56 PM RADAR TECHNICIAN EXTRA TUBE-EDTA STAT 01/11/2025 5:42 PM RADAR TECHNICIAN EXTRA TUBE-COAG STAT 01/11/2025 5:42 PM RADAR TECHNICIAN EXTRA TUBE-BLOOD BANK STAT 01/11/2025 5:42 PM RADAR TECHNICIAN EXTRA TUBE-SST (LAB USE ONLY) STAT 01/11/2025 5:42 PM RADAR TECHNICIAN ABORH CONFIRM (LAB USE ONLY) STAT 01/11/2025 5:42 PM RADAR TECHNICIAN TYPE AND SCREEN STAT 01/11/2025 5:42 PM RADAR TECHNICIAN ALCOHOL (ETOH) STAT 01/11/2025 5:42 PM RADAR TECHNICIAN PROTIME/INR STAT 01/11/2025 5:42 PM RADAR TECHNICIAN PLATELET COUNT STAT 01/11/2025 5:42 PM RADAR TECHNICIAN HEMOGLOBIN STAT 01/11/2025 5:42 PM RADAR TECHNICIAN EXTRA TUBE PST STAT 01/11/2025 5:42 PM RADAR TECHNICIAN POCT LACTIC ACID STAT 01/11/2025 5:39 PM RADAR TECHNICIAN POCT CREATININE Routine 01/11/2025 5:39 PM RADAR TECHNICIAN POCT VBG/NA/K/GL STAT 01/11/2025 5:39 PM RADAR TECHNICIAN POCT CALCIUM, IONIZED STAT 01/11/2025 5:39 PM RADAR TECHNICIAN POCT CHLORIDE STAT 01/11/2025 5:39 PM RADAR TECHNICIAN documented in this encounter Results * XR C ARM EXTREMITY RT (01/12/2025 9:05 AM RADAR TECHNICIAN) Anatomical Region Laterality Modality Extremity Computed Radiogr aphy 01/12/2025 9:23 AM RADAR TECHNICIAN Impressions 01/12/2025 9:24 AM RADAR TECHNICIAN impression: 2 images saved. Fluoroscopy time 36 seconds. Imaging guidance provided during open reduction internal fixation surgery along the proximal ulna Narrative 01/12/2025 9:24 AM RADAR TECHNICIAN EXAMINATION: Intraoperative imaging right elbow. INDICATION: Surgical repair. Findings/ Procedure Note Deven [place] MD - 01/12/2025 EXAMINATION: Intraoperative imaging right elbow. INDICATION: Surgical repair. Findings/ IMPRESSION impression: 2 images saved. Fluoroscopy time 36 seconds. Imaging guidance providedduring open reduction internal fixation surgery along the proximal ulna Rangel Kebede MD XRAY ORDERABLE Final Re sult * (ABNORMAL) Basic Metab Profile (01/12/2025 5:02 AM RADAR TECHNICIAN) Sodium 142 136 - 145 mmol/L 01/12/2025 6:27 AM RADAR TECHNICIAN [facility] Potassium 4.3 3.4 - 5.1 mmol/L 01/12/2025 6:27 AM RADAR TECHNICIAN [facility] Comment:Interpret with cauti on, specimen slightly hemolyzed. Results may be affected. Chloride 112(H) 98 - 108 mmol/L 01/12/2025 6:27 AM [facility] Carbon Dioxide 23 20 - 31 mmol/L 01/12/2025 6:27 AM [facility] BUN (Urea Nitro) 12 9 - 23 mg/dL 01/12/2025 6:27 AM [facility] Creatinine 1.41(H) 0.73 - 1.18 mg/dL 01/12/2025 6:27 AM [facility] Est GFR (CKD-EPI) >60.00 >60.00 mL/min/1. 73m2 01/12/2025 6:27 AM [facility] Comment:Calculation based on the Chronic Kidney Disease Epidemiology Collaboration (CKD-EPI 2020) equation refit without adjustment for race. Glucose 87 74 - 106 mg/dL 01/12/2025 6:27 AM [facility] Calcium, Serum 8.7 8.7 - 10.4 mg/dL 01/12/2025 6:27 AM [facility] Anion Gap 7.0 0.0 - 15.0 mmol/L 01/12/2025 6:27 AM [facility] Blood 01/12/2025 5:02 AM RADAR TECHNICIAN 01/12/2025 5:54 AM RADAR TECHNICIAN us Flo Lawson MD CHEMISTRY ORDERABLE Final R esult Performing Organization Address [facility] de Phone Number [facility] [address] [place] [phone] * Extra Tube-EDTA (Lab Use Only) (01/12/2025 5:00 AM RADAR TECHNICIAN) Only the most recent of2 resultswithin the time period is included. Blood 01/12/2025 5:00 AM RADAR TECHNICIAN 01/12/2025 6:12 AM RADAR TECHNICIAN us Rangel Kebede MD HEMATOLOGY ORDERABLE Fin al Result Performing Organization Address [facility] de Phone Number [facility] [address] [place] [phone] * CT EXTREM UPPER RT W/O CON (01/11/2025 10:29 PM RADAR TECHNICIAN) Anatomical Region Laterality Modality Upper Extremity Computed Tomogra phy 01/11/2025 10:5 4 PM RADAR TECHNICIAN Impressions 01/11/2025 10:58 PM RADAR TECHNICIAN IMPRESSION: 1. Comminuted, displaced fracture of the olecranon with large elbow joint effusion. Overlying soft tissue injury with scattered soft tissue gas. No intra-articular gas. 2. Advanced degenerative changes of the elbow. REPORT SIGNED BY DR. Gentry Mayorga Narrative 01/11/2025 10:58 PM RADAR TECHNICIAN EXAM: [facility] UPPER RT W/O CON DATE: 01/11/2025 22:25 [...] Gentry Mayorga MD - 01/11/2025 EXAM: CT [facility] RT W/O CON DATE: 01/11/2025 22:25 CLINICAL [...] / Pelvis W Contrast (01/11/2025 6:23 PM RADAR TECHNICIAN) Anatomical Region Laterality Modality Chest, ABD/Pelvis Computed Tomog cr 01/11/2025 6:21 PM RADAR TECHNICIAN Impressions 01/11/2025 6:29 PM RADAR TECHNICIAN IMPRESSION: 1. Findings consistent with a mild superficial contusion over the mid to lower right anterior abdominal wall with mild subcutaneous edema in this region. No discrete hematoma. 2. Otherwise, no evidence of thoracic, abdominal or pelvic acute traumatic injury. 3. Mild colonic diverticulosis without evidence of acute diverticulitis. REPORT SIGNED BY DR. Singh Javier 01/11/2025 6:29 PM RADAR TECHNICIAN EXAM: CT TRAUMA CHEST/ABD/PEL W CON DATE: [...] discussion of the osseous findings. Procedure Note Singh Vergara MD - 01/11/2025 EXAM: CT TRAUMA CHEST/ABD/PEL [...] SIGNED BY DR. Singh Vergara us Sol Ulloa MD CT ORDERABLE Final Resu lt * CT Reconstruction Spine Lumbar (01/11/2025 6:23 PM RADAR TECHNICIAN) Anatomical Region Laterality Modality Spine Computed Tomogra phy 01/11/2025 6:31 PM RADAR TECHNICIAN Impressions 01/11/2025 6:32 PM RADAR TECHNICIAN IMPRESSION: 1. No evidence of a fracture, subluxation or dislocation. 2. Severe degenerative changes at L5-S1. REPORT SIGNED BY DR. Singh Vergara Narrative 01/11/2025 6:32 PM RADAR TECHNICIAN EXAM: CT RECONSTRUCTION SPINE LUMBAR DATE: 01/11/2025 [...] SIGNED BY DR. Singh Vergara us Sol Ulloa MD CT ORDERABLE Final Resu lt * EKG (01/11/2025 6:22 PM RADAR TECHNICIAN) EKG KATHY RETANA Comment: [facility] Test Date: 2025-01-11 Pat Name: SIMEON DAVIDSON Department: ED Room: 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[id number] : 1975 Requested By: SOL ULLOA MD Order Number: [id number] Reading MD: SOL ULLAO MD Measurements Intervals [place] Rate: 85 P: 61 CT: 126 QRS: 33 QRSD: 94 T: 4 QT: 334 QTc: 376 Interpretive Statements SINUS RHYTHM POSSIBLE LEFT ATRIAL ENLARGEMENT BORDERLINE ECG No previous ECG available for comparison Electronically Signed On 01-11-2025 18:24:08 RADAR TECHNICIAN by SOL ULLOA MD 01/11/2025 6:22 PM RADAR TECHNICIAN us Sol Ulloa MD EKG ORDERABLE Final Resu lt [facility] [id number] [place] [id number] * CT Reconstruction Spine Thoracic (01/11/2025 6:22 PM RADAR TECHNICIAN) Anatomical Region Laterality Modality Spine Computed Tomogra phy 01/11/2025 6:29 PM RADAR TECHNICIAN Impressions 01/11/2025 6:30 PM RADAR TECHNICIAN IMPRESSION: 1. No evidence of an acute fracture, subluxation or dislocation. 2. Multilevel degenerative changes of the thoracic spine. 3. Old healed left lateral rib fractures. REPORT SIGNED BY DR. SINGH VERGARA Narrative 01/11/2025 6:30 PM RADAR TECHNICIAN EXAM: CT RECONSTRUCTION SPINE THORACIC DATE: 01/11/2025 [...] SIGNED BY DR. SINGH VERGARA us Sol Ulloa MD CT ORDERABLE Final Resu lt * XRAY TIBIA FIBULA LEFT (01/11/2025 6:14 PM RADAR TECHNICIAN) Anatomical Region Laterality Modality Extremity Computed Radiogr aphy 01/11/2025 6:38 PM RADAR TECHNICIAN Impressions 01/11/2025 6:38 PM RADAR TECHNICIAN IMPRESSION: Intact left tibia and fibula. REPORT SIGNED BY DR. Austen Gage Narrative 01/11/2025 6:38 PM RADAR TECHNICIAN EXAM: XR TIBIA & FIBULA LT DATE: [...] fibula. REPORT SIGNED BY DR. Austen Gage us Sol Ulloa MD XRAY ORDERABLE Final Resu lt * XRAY WRIST LEFT (01/11/2025 6:12 PM RADAR TECHNICIAN) Anatomical Region Laterality Modality Extremity Computed Radiogr aphy 01/11/2025 6:36 PM RADAR TECHNICIAN Impressions 01/11/2025 6:38 PM RADAR TECHNICIAN IMPRESSION: No definite osseous injuries are seen at the left wrist. REPORT SIGNED BY DR. Austen Gage Narrative 01/11/2025 6:38 PM RADAR TECHNICIAN EXAM: XR WRIST LT 3 VIEW DATE: [...] wrist. REPORT SIGNED BY DR. Austen Gage us Sol Ulloa MD XRAY ORDERABLE Final Resu lt * XRAY ELBOW RIGHT (01/11/2025 6:10 PM RADAR TECHNICIAN) Anatomical Region Laterality Modality Extremity Computed Radiogr aphy 01/11/2025 6:38 PM RADAR TECHNICIAN Impressions 01/11/2025 6:40 PM RADAR TECHNICIAN IMPRESSION: Probable acute, nondisplaced fracture involving the proximal aspect of the olecranon process. REPORT SIGNED BY DR. Austen Gage Narrative 01/11/2025 6:40 PM RADAR TECHNICIAN EXAM: XR ELBOW RT 3 VIEW DATE: [...] olecranon process. REPORT SIGNED BY DR. Austen Ggae us Sol Ulloa MD XRAY ORDERABLE Final Resu lt * CT Spine Cervical W/O Contrast (01/11/2025 5:56 PM RADAR TECHNICIAN) Anatomical Region Laterality Modality Spine Computed Tomogra phy 01/11/2025 6:07 PM RADAR TECHNICIAN Impressions 01/11/2025 6:09 PM RADAR TECHNICIAN IMPRESSION: No evidence of cervical spine fracture or subluxation. REPORT SIGNED BY DR. Austen Gage Narrative 01/11/2025 6:09 PM RADAR TECHNICIAN EXAM: CT SPINE CERVICAL W/O CON DATE: [...] SIGNED BY DR. Austen Gage us Sol Ulloa MD CT ORDERABLE Final Resu lt * CT Head W/O Contrast W/O 3D (01/11/2025 5:56 PM RADAR TECHNICIAN) Anatomical Region Laterality Modality Head Computed Tomogra phy 01/11/2025 5:58 PM RADAR TECHNICIAN Impressions 01/11/2025 5:59 PM RADAR TECHNICIAN IMPRESSION: Right frontal scalp soft tissue swelling and laceration. No skull fracture seen. No intracranial bleed. REPORT SIGNED BY DR. Ambrosio Willard Narrative 01/11/2025 5:59 PM RADAR TECHNICIAN EXAM: CT HEAD (without contrast) DATE: 01/11/2025 [...] SIGNED BY DR. Ambrosio Willard us Sol Ulloa MD CT ORDERABLE Final Resu lt * ABORh Confirm (Lab Use Only) (01/11/2025 5:42 PM RADAR TECHNICIAN) Pathologist [facility] Group and Rh O Positive 01/11/2025 6:32 PM RADAR TECHNICIAN [facility] Blood 01/11/2025 5:42 PM RADAR TECHNICIAN 01/11/2025 6:13 PM RADAR TECHNICIAN us Sol Ulloa MD BLOOD BANK ORDERABLE Final Result Performing Organization Address [facility] [place] [address] * Extra Tube-Coag (Lab Use Only) (01/11/2025 5:42 PM RADAR TECHNICIAN) Blood BLOOD SPECIMEN / Unknown 01/11/2025 5:42 PM RADAR TECHNICIAN 01/11/2025 5:47 PM RADAR TECHNICIAN us Sol Ulloa MD COAGULATION ORDERABLE Geetha l Result Performing Organization Address City/[facility] Co de Phone Number [address] [address] * Extra Tube PST (Lab Use Only) (01/11/2025 5:42 PM RADAR TECHNICIAN) Blood BLOOD SPECIMEN / Unknown 01/11/2025 5:42 PM RADAR TECHNICIAN 01/11/2025 5:47 PM RADAR TECHNICIAN us Sol Ulloa MD CHEMISTRY ORDERABLE Final Result Performing Organization Address City/[facility] Co de Phone Number [facility] [address] [address] * Extra Tube-SST (Lab Use Only) (01/11/2025 5:42 PM RADAR TECHNICIAN) Blood BLOOD SPECIMEN / Unknown 01/11/2025 5:42 PM RADAR TECHNICIAN 01/11/2025 5:47 PM RADAR TECHNICIAN Sol Ulloa MD CHEMISTRY ORDERABLE Final Result Performing Organization Address City/[facility] Co de Phone Number [facility] [address] [place] [address] * Extra Tube-Blood Bank (Lab Use Only) (01/11/2025 5:42 PM RADAR TECHNICIAN) Blood BLOOD SPECIMEN / Unknown 01/11/2025 5:42 PM RADAR TECHNICIAN 01/11/2025 5:47 PM RADAR TECHNICIAN us Sol Ulloa MD BLOOD BANK ORDERABLE Final Result Performing Organization Address [facility] Co de Phone Number [facility] [address] [place] [address] * Alcohol (ETOH), Plasma (01/11/2025 5:42 PM RADAR TECHNICIAN) Pathologist [facility] ALCOHOL (ETOH), PLASMA <3 <3 mg/dL 01/11/2025 6:12 PM RADAR TECHNICIAN [facility] Blood BLOOD SPECIMEN / Unknown 01/11/2025 5:42 PM RADAR TECHNICIAN 01/11/2025 5:47 PM RADAR TECHNICIAN us Sol Ulloa MD CHEMISTRY ORDERABLE Final Result Performing Organization Address City/[facility] Co de Phone Number [facility] [address] [address] * Type and Screen (01/11/2025 5:42 PM RADAR TECHNICIAN) Group and Rh O Positive 01/11/2025 6:42 PM RADAR TECHNICIAN [facility] Antibody Screen Negative 01/11/2025 6:42 PM RADAR TECHNICIAN [facility] Blood BLOOD SPECIMEN / Unknown 01/11/2025 5:42 PM RADAR TECHNICIAN 01/11/2025 5:47 PM RADAR TECHNICIAN us Sol Ulloa MD BLOOD BANK ORDERABLE Edite d Result - Final Performing Organization Address City/[facility]/ZIP Co de Phone Number [facility] [address] [place] [address] [facility] [address] [place] [address] * Protime/INR (01/11/2025 5:42 PM RADAR TECHNICIAN) Pathologist [facility] INR 1.0 0.9 - 1.2 01/11/2025 6:04 PM RADAR TECHNICIAN [facility] Blood BLOOD SPECIMEN / Unknown 01/11/2025 5:42 PM RADAR TECHNICIAN 01/11/2025 5:47 PM RADAR TECHNICIAN us Sol Ulloa MD COAGULATION ORDERABLE Geetha l Result Performing Organization Address [facility] Co de Phone Number [facility] [address] [place] [address] * Platelet Count (01/11/2025 5:42 PM RADAR TECHNICIAN) [facility] Platelet Count 273 150 - 400 K/UL 01/11/2025 5:56 PM RADAR TECHNICIAN [facility] Blood BLOOD SPECIMEN / Unknown 01/11/2025 5:42 PM RADAR TECHNICIAN 01/11/2025 5:47 PM RADAR TECHNICIAN us Sol Ulloa MD HEMATOLOGY ORDERABLE Final Result Performing Organization Address City/[facility]/ZIP Co de Phone Number [facility] [address] [place] [address] * Hemoglobin (01/11/2025 5:42 PM RADAR TECHNICIAN) [facility] Hemoglobin 18.0 14.0 - 18.0 gm/dL 01/11/2025 5:56 PM RADAR TECHNICIAN [facility] Blood BLOOD SPECIMEN / Unknown 01/11/2025 5:42 PM RADAR TECHNICIAN 01/11/2025 5:47 PM RADAR TECHNICIAN Sol Ulloa MD HEMATOLOGY ORDERABLE Final Result [facility] [address] [place] [address] * POCT Chloride (01/11/2025 5:39 PM RADAR TECHNICIAN) [facility] POCT CHLORIDE 108 99 - 111 mmol/L 01/11/2025 5:42 PM RADAR TECHNICIAN [facility] 01/11/2025 5:39 PM RADAR TECHNICIAN 01/11/2025 5:42 PM RADAR TECHNICIAN [facility] POINT OF CARE TEST RESULTS F inal Result Performing Organization Address City/[facility]/ZIP Co de Phone Number [facility] [address] [place] [address] * (ABNORMAL) POCT CREATININE (01/11/2025 5:39 PM RADAR TECHNICIAN) [facility] POCT Creatinine 1.6(H) 0.7 - 1.3 mg/dL 01/11/2025 5:42 PM RADAR TECHNICIAN [facility] 01/11/2025 5:39 PM RADAR TECHNICIAN 01/11/2025 5:42 PM RADAR TECHNICIAN [facility] POINT OF CARE TEST RESULTS F inal Result Performing Organization Address City/[facility]/ZIP Co de Phone Number [facility] [address] [place] [address] * POCT Lac (01/11/2025 5:39 PM RADAR TECHNICIAN) Pathologist [facility] POCT LACTIC ACID 1.1 0.7 - 2.1 mmol/L 01/11/2025 5:42 PM RADAR TECHNICIAN [facility] 01/11/2025 5:39 PM RADAR TECHNICIAN 01/11/2025 5:42 PM RADAR TECHNICIAN [facility] POINT OF CARE TEST RESULTS F inal Result Performing Organization Address City/[facility]/ZIP Co de Phone Number [facility] [place] [address] * POCT Ca, Ionized (01/11/2025 5:39 PM RADAR TECHNICIAN) [facility] POCT CA IONIZED 1.31 1.13 - 1.32 mmol/L 01/11/2025 5:42 PM RADAR TECHNICIAN [facility] 01/11/2025 5:39 PM RADAR TECHNICIAN 01/11/2025 5:42 PM RADAR TECHNICIAN [facility] POINT OF CARE TEST RESULTS F inal Result Performing Organization Address [facility] de Phone Number [facility] [place] [address] * (ABNORMAL) POCT VBG/Na/K/Glu (01/11/2025 5:39 PM RADAR TECHNICIAN) [facility] POCT pH Venous 7.33 7.30 - 7.40 01/11/2025 5:42 PM [facility] POCT pCO2 Venous 47 36 - 51 mm Hg 01/11/2025 5:42 PM RADAR TECHNICIAN [facility] POCT pO2 Venous 49(H) 35 - 45 mm Hg 01/11/2025 5:42 PM [facility] POCT HCO3 VENOUS 25 22 - 29 mmol/L 01/11/2025 5:42 PM RADAR TECHNICIAN [facility] POCT BASE EXCESS -2.0 -3.0 - 2.0 mmol/L 01/11/2025 5:42 PM [facility] POCT CSO2 81.0(L) 92.0 - 98.0 %SAT 01/11/2025 5:42 PM [facility] POCT cTCO2 26.0 mmol/L 01/11/2025 5:42 PM [facility] POCT SODIUM 147(H) 133 - 144 mmol/L 01/11/2025 5:42 PM [facility] POCT POTASSIUM 4.4 3.5 - 5.0 mmol/L 01/11/2025 5:42 PM [facility] POCT Glucose 153(H) 60 - 100 mg/dL 01/11/2025 5:42 PM [facility] 01/11/2025 5:39 PM RADAR TECHNICIAN 01/11/2025 5:42 PM [facility] POINT OF CARE TEST RESULTS F inal Result Performing Organization Address City/State/[facility] Co de Phone Number [facility] [address] [place] [address] documented in this encounter Visit Diagnoses Diagnosis [...] state of consciousness Scalp laceration, initial encounter Olecranon fracture, right, open type I or II, initial encounter documented in this encounter Admitting Diagnoses Diagnosis Elbow fracture, right, closed, initial encounter documented in this encounter Administered Medications Inactive Administered Medications - up to 3 most recent administrations Medication Order MAR Action Action Date Dose Rate Site saline FLUSH syringe 10 mL 10 mL, Intravenous, EVERY 8 HOURS, First dose on Tue01/11/25 at 2200, Until Discontinued Given 01/12/2025 3:30 PM RADAR TECHNICIAN 10 mL Given 01/12/2025 5:56 AM RADAR TECHNICIAN 10 mL Given 01/11/2025 10:52 PM RADAR TECHNICIAN 10 mL saline FLUSH syringe 10 mL 10 mL, Intravenous, NEEDED, Starting on Tue01/11/25 at 1919, Until 01/12/25 at 2218, Line Care acetaminophen (TYLENOL) tablet 650 mg 650 mg, oral, EVERY 6 HOURS, First dose on 01/12/25 at 0200, Until Discontinued Given 01/12/2025 3:26 PM RADAR TECHNICIAN 650 mg ceFAZolin (Ancef) 2 g in sterile water IV syringe 2 g, Intravenous, EVERY 8 HOURS (NS), 3 doses, First dose on 01/12/25 at 1600, Last dose on Tue01/13/25 at 0800, Post-Op, Administer over 3 MinutesIndications:SURGICAL PROPHYLAXIS Given 01/12/2025 3:26 PM RADAR TECHNICIAN 2 g HYDROmorphone (DILAUDID) tablet 2 mg 2 mg, oral, EVERY 4 HOURS NEEDED, Starting on Tue01/11/25 at 2002, Until 01/12/25 at 2218, pain ketorolac (ToradoL) injection 30 mg 30 mg, Intravenous, ONCE NEEDED, MAY REPEAT X 1, 2 doses, Starting on 01/12/25 at 1117, Until 01/12/25 at 2218, pain, Maximum duration of treatment is 5 days. methocarbamoL (ROBAXIN) tablet 500 mg 500 mg, oral, FOUR TIMES A DAY, First dose on Tue01/11/25 at 2200, Until Discontinued Given 01/12/2025 12:40 PM RADAR TECHNICIAN 500 mg Given 01/11/2025 10:48 PM RADAR TECHNICIAN 500 mg metoprolol (LOPRESSOR) injection 5 mg 5 mg, Intravenous, EVERY 6 HOURS, First dose on 01/12/25 at 0200, Until Discontinued Given 01/12/2025 3:26 PM RADAR TECHNICIAN 5 m g Given 01/12/2025 2:26 AM RADAR TECHNICIAN 5 mg nicotine (NICOTROL) 14 mg/24 hr patch 1 patch 1 patch, Transdermal, DAILY, First dose on Tue01/11/25 at 1845, Until Discontinued Patch Applied 01/12/2025 12:43 PM RADAR TECHNICIAN 1 patch Left Deltoid Patch Applied 01/11/2025 6:48 PM RADAR TECHNICIAN 1 patch Right Deltoid senna-docusate (SENNA-S) tablet 2 tablet 2 tablet, oral, DAILY, First dose (after last modification) on Tue01/12/25 at 1130, Until Discontinued, Post-Op tobramycin (NEBCIN) powder (OR) INTRA-PROCEDURE NEEDED, Starting on Tue01/12/25 at 0904, Until 01/12/25 at 0938, Intra-Op Given 01/12/2025 9:04 AM RADAR TECHNICIAN 1 g Procedural vancomycin (VANCOCIN) powder (OR) INTRA-PROCEDURE NEEDED, Starting on 01/12/25 at 0904, Until 01/12/25 at 0938, Intra-Op Given 01/12/2025 9:04 AM RADAR TECHNICIAN 1.2 g Procedural documented in this encounter Active and Recently Administered Medications Times are shown in RADAR TECHNICIAN. Scheduled Medication Order 01/10/2025 01/11/2025 01/12/2025 saline FLUSH syringe 10 mL 10 mL, Intravenous, EVERY 8 HOURS, First dose on Tue01/11/25 at 2200, Until Discontinued 2252 (Given - Provider: Venkat Dotson, TRAY) 0556 (Given - Provider: Venkat Dotson, TRAY)0630 (APR Hold - Provider: Interface, Incoming Adt - Reason: Procedure)1045 (APR Unhold - Provider: Nathalie Norton, TRAY)1530 (Given - Provider: Nathalie Norton, TRAY) acetaminophen (Ofirmev) IV infusion 1,000 mg (COMPLETED) 1,000 mg, Intravenous, ONCE, 1 dose, On Tue01/11/25 at 1800, Administer over 15 Minutes 1818 (New Bag - Provider: Betty Ruvalcaba RN)1833 (Stopped - Provider: Betty Ruvalcaba RN) acetaminophen (TYLENOL) tablet 650 mg 650 mg, oral, EVERY 6 HOURS, First dose on 01/12/25 at 0200, Until Discontinued 0231 (Declined - Pro vider: Venkat Dotson RN)0630 (APR Hold - Provider: Interface, Incoming Adt - Reason: Procedure)0800 (Not Given - Provider: Nathalie Norton RN - Reason: Procedure)1045 (APR Unhold - Provider: Nathalie Norton, TRAY)1526 (Given - Provider: Nathalie Norton RN) ceFAZolin [...] on Tue01/12/25 at 1600, Last dose on 01/13/25 at 0800, Post-Op, Administer over 3 Minutes [...] dose on Tue01/11/25 at 2200, Until Discontinued 2248 (Given - Provider: Venkat Dotson RN) 0630 ([facility] Hold - Provider: Interface, Incoming Adt - Reason: Procedure)0800 (Not Given - Provider: Nathalie Norton RN - Reason: Procedure)1045 ([facility] Unhold - Provider: Nathalie Norton RN)1240 (Given - Provider: Nathalie Norton RN) metoprolol (LOPRESSOR) injection 5 mg (COMPLETED) 5 mg, Intravenous, ONCE, 1 dose, On Tue01/11/25 at 1800 1742 (Given - Provider: Betty Ruvalcaba RN) metoprolol (LOPRESSOR) injection 5 mg (COMPLETED) 5 mg, Intravenous, ONCE, 1 dose, On Tue01/11/25 at 1815 1812 (Given - Provider: Rangel Beltre RN) metoprolol (LOPRESSOR) injection 5 mg 5 mg, Intravenous, EVERY 6 HOURS, First dose on Tue01/12/25 at 0200, Until Discontinued 0226 (Given - Provid er: Venkat Dotson RN)0630 ([facility] Hold - Provider: Interface, Incoming Adt - Reason: Procedure)0800 (Not Given - Provider: Nathalie Norton RN - Reason: Procedure)1045 ([facility] Unhold - Provider: Nathalie Norton RN)1526 (Given [...] on 01/12/25 at 1130, Until Discontinued, Post-Op 1130 (Declined - Pro vider: Nathalie Norton RN) Continuous Medication Order 01/10/2025 01/11/2025 01/12/2025 sodium chloride 0.9 % IV solution (CANCELED) at 125 mL/hr, Intravenous, CONTINUOUS, Starting on Tue01/11/25 at 1930, Until 01/12/25 at 1117 2251 (New Bag - Provider: Venkat Dotson RN) 0319 (Auto Rate Verify - Provider: Venkat Dotson RN)0556 (New Bag - Provider: Venkat Dotson, TRAY)0625 (Auto Rate Verify - Provider: Venkat Dotson, TRAY)0630 (APR Hold - Provider: Interface, Incoming Adt - Reason: Procedure)0743 (Continued in OR - Provider: eWro Braga CRNA)0835 (Stopped - Provider: Wero Braga CRNA)1045 (APR Unhold - Provider: Nathalie Norton RN) PRN Medication Order 01/10/2025 01/11/2025 01/12/2025 saline FLUSH syringe 10 mL 10 mL, Intravenous, NEEDED, Starting on Tue01/11/25 at 1919, Until 01/12/25 at 2218, Line Care 0630 ([facility] Hold - Provider: Interface, Incoming Adt - Reason: Procedure)1045 ([facility] Unhold - Provider: Nathalie Norton, TRAY) bisacodyl (DULCOLAX) suppository 1 suppository 1 suppository, [...] 2002, Until 01/12/25 at 2218, pain 0630 ([facility] Hold - Provider: Interface, Incoming Adt - Reason: Procedure)1045 ([facility] Unhold - Provider: Nathalie Norton RN) hydrOXYzine [...] hours. documented in this encounter Care Teams County Engineer Relationship Specialty Start Date End Date Doctor, No No ad PCP - General Radiology 01/11/25 documented as of this encounter
--- OUTSIDE RECORDS SUMMARY | 2025-01-15 11:56 | XMS_ITS | Clinical Summary ---
Author Organization [facility] Address [address] [place] [address] Care Team Providers Care Vinyl Dipper Name Role Phone Doctor, No Primary Care Provider Unavailabl e Allergies No known active allergies Medications vitamin D3/vitamin K2, MK4, (K2 PLUS D3 ORAL) Take 1 tablet by mouth once daily. Also contains zinc Active testosterone cypionate 200 mg/mL IM Syringe Inject 0.6 mL into the muscle two times per week. Tuesday and Active UNKNOWN MEDICATIONS Take 1 tablet by mouth once daily. Pure Saffron Supplement Active UNKNOWN MEDICATIONS Take 1 tablet by mouth once daily. Vitamins A,D,K Active acetaminophen (TYLENOL) 325 mg oral tablet Take 3 tablets (975 mg) by mouth every 6 (six) hours. 5 Active methocarbamoL (ROBAXIN) 500 mg oral tablet Take 1-2 tablets (500-1,000 mg) by mouth every 6 (six) hours as needed. 60 tablet 01/13/2025 9:15 AM ACCOUNT PLANNER 5 Active oxyCODONE, immediate release, (ROXICODONE) 5 mg oral tablet Take 1 tablet (5 mg) by mouth every 6 (six) hours as needed. 20 tablet 01/13/2025 9:15 AM ACCOUNT PLANNER 5 Active senna-docusate (SENNA-S) 8.6-50 mg oral tablet Take 1 tablet by mouth once daily. 10 tablet 01/13/2025 9:15 AM ACCOUNT PLANNER 5 Active Active Problems Problem Noted Date Diagnosed Date Elbow fracture, right, closed, initial encounter 01/11/2025 Primary hypertension 01/11/2025 Mild TBI 01/11/2025 Overview (01/11/2025): GCS15 Scalp laceration, initial encounter 01/11/2025 Accidental fall from ladder 01/11/2025 Overview (01/11/2025): ~8ft Encounters Date Type Department Care Team Description 01/12/2025 7:30 AM ACCOUNT PLANNER - 01/12/2025 10:50 AM [facility] Surgery [facility] Operating Room [address] [facility] [place] [address] Rangel Kebede MD IRRIGATION DEBRIDEMENT RIGHT ELBOW 01/11/2025 5:32 PM ACCOUNT PLANNER - 01/12/2025 4:13 PM [facility] Hospital Encounter [address] [place] [address] [facility] [place] [address] Keke Goodman MD Gipson, Jonathan C, MD Accidental fall from ladder Discharge Disposition: Returning Home/Self Care 01/11/2025 Travel from Last 3 Months Immunizations Immunization Administration Dates Next Due Tdap 01/11/2025 Social History Tobacco Use Types Packs/Day Years [...] any time in the past 12 m [facility], were you homeless or living in a long term (including now)? No 01/11/2025 [facility] Utilities Answer Date Recorded In the past 12 months has th e electric, gas, oil, or water company threatened to shut off services in your home? No 01/11/2025 Sex and Gender Information Value Date Recorded Sex Assigned at Not on file Legal Sex Male 5:32 PM ACCOUNT PLANNER Gender Identity Not on file Sexual Orientation Not on file Last Filed Vital Signs Vital Sign Reading Time Taken Comments Blood Pressure 164/98 01/12/2025 3:26 PM ACCOUNT PLANNER Pulse 108 01/12/2025 3:26 PM ACCOUNT PLANNER Temperature 36.7 C (98 F) 01/12/2025 3:26 PM ACCOUNT PLANNER Respiratory Rate 20 01/12/2025 3:26 PM ACCOUNT PLANNER Oxygen Saturation 94% 01/12/2025 3:26 PM ACCOUNT PLANNER Inhaled Oxygen Concentration - - Weight 94 kg (207 lb 3.7 oz) 01/12/2025 5:56 AM ACCOUNT PLANNER Height 175.3 cm (5' 9) 01/12/2025 5:56 AM ACCOUNT PLANNER Body Mass Index 30.6 01/12/2025 5:56 AM ACCOUNT PLANNER Plan of Treatment Health Maintenance Due Date Last Done Comments Colonoscopy 1975 Hepatitis C Screening 1975 Lipid Screening 1975 Anxiety Screening (NOBLE-2) 05/04/1976 Depression Assessment (PHQ-2) 05/04/1976 Pneumococcal Vaccine (1 of 2 - PCV) 05/04/1994 COVID-19 Vaccine (2024-2 6 season) 2024 Influenza Vaccine (#1) 2024 Diabetes Screening 01/13/2028 01/12/2025, 01/11/2025 Adult Tetanus Booster 01/11/2035 01/11/2025 , 12/04/2019 RSV Vaccines (1 - 1-dose 75+ series) 05/04/2050 Meningococcal B Vaccine Aged Out No l onger eligible based on patient's age to complete this topic Medical Devices Implanted Type Area [employer]man Device Identifier Shelf Expiration Date Model / Serial / Lot Pl 2.7/3.5 Prox Olecr 2h/R/73m - [id number] Implanted:Qty: 1 on 01/12/2025 by Rangel Kebede MD at [facility] Plate Right: [employer] 107.00 2 / / Screw 2.7mm Va Lck Slf-Tp 28mm - [id number] Implanted:Qty: 1 on 01/12/2025 by Rangel Kebede MD at [facility] Screw/Anc hor Right: [employer] 8 / / Screw 2.7mm Va Lck Slf-Tp 34mm - [id number] Implanted:Qty: 1 on 01/12/2025 by Rangel Kebede MD at [facility] Screw/Anc hor Right: [employer] .03 4 / / Scr 2.7 Metphyseal Slf-Tp 56mm - [id number] Implanted:Qty: 1 on 01/12/2025 by Rangel Kebede MD at [facility] Screw/Anc hor Right: [employer] 118.55 6 / / Screw 2.7mm Va Lck Slf-Tp 12mm - [id number] Implanted:Qty: 1 on 01/12/2025 by Rangel Kebede MD at [facility] Screw/Anc hor Right: [employer] . 2 / / Scr Syn Crtx S/T3.07/16 204.826 - [id number] Implanted:Qty: 1 on 01/12/2025 by Rangel Kebede MD at [facility] Screw/Anc hor Right: [employer] 204.826 / / Scr Syn Crtx S/T3.534 204.834 - [id number] Implanted:Qty: 1 on 01/12/2025 by Rangel Kebede MD at [facility] Screw/Anc hor Right: [employer] 204.834 / / Procedures Procedure Name Priority Date/Time Associated Diagnosis Comments XR C ARM EXTREMITY RT STAT 01/12/2025 9:05 AM ACCOUNT PLANNER INTUBATION Routine 01/12/2025 8:01 AM ACCOUNT PLANNER OPEN TREATMENT ULNAR FRACTURE PROXIMAL END Class D 01/12/2025 7:45 AM ACCOUNT PLANNER Olecranon fracture, right, open type I or II, initial encounter IRRIGATION DEBRIDEMENT ARM Class D 01/12/2025 7:45 AM ACCOUNT PLANNER Olecranon fracture, right, open type I or II, initial encounter BASIC METAB PROFILE Timed Procedure 01/12/2025 5 :02 AM ACCOUNT PLANNER EXTRA TUBE-EDTA Routine 01/12/2025 5:[address] EXTREM UPPER RT W/O CON STAT 01/11/2025 10:[address] TRAUMA CHEST/ABD/PEL W CON STAT 01/11/2025 6:[address] RECONSTRUCTION SPINE LUMBAR STAT 01/11/2025 6:23 PM ACCOUNT PLANNER ELECTROCARDIOGRAM STAT 01/11/2025 6:[address] RECONSTRUCTION SPINE THORACIC STAT 01/11/2025 6:22 PM ACCOUNT PLANNER XR TIBIA & FIBULA LT STAT 01/11/2025 6:14 PM ACCOUNT PLANNER XR WRIST LT 3 VIEW STAT 01/11/2025 6: 12 PM ACCOUNT PLANNER XR ELBOW RT 3 VIEW STAT 01/11/2025 6: [address] SPINE CERVICAL W/O CON STAT 01/11/2025 5:[address] HEAD W/O CON W/O 3D STAT 5:56 PM ACCOUNT PLANNER EXTRA TUBE-COAG STAT 01/11/2025 5:42 PM ACCOUNT PLANNER EXTRA TUBE PST STAT 01/11/2025 5:42 PM ACCOUNT PLANNER EXTRA TUBE-SST (LAB USE ONLY) STAT 01/11/2025 5:42 PM ACCOUNT PLANNER EXTRA TUBE-EDTA STAT 01/11/2025 5:42 PM ACCOUNT PLANNER EXTRA TUBE-BLOOD BANK STAT 01/11/2025 5:42 PM ACCOUNT PLANNER ABORH CONFIRM (LAB USE ONLY) STAT 01/11/2025 5:42 PM ACCOUNT PLANNER ALCOHOL (ETOH) STAT 01/11/2025 5:42 PM ACCOUNT PLANNER TYPE AND SCREEN STAT 01/11/2025 5:42 PM ACCOUNT PLANNER PROTIME/INR STAT 01/11/2025 5:42 PM ACCOUNT PLANNER PLATELET COUNT STAT 01/11/2025 5:42 PM ACCOUNT PLANNER HEMOGLOBIN STAT 01/11/2025 5:42 PM ACCOUNT PLANNER POCT CHLORIDE STAT 01/11/2025 5:39 PM ACCOUNT PLANNER POCT CREATININE Routine 01/11/2025 5:39 PM ACCOUNT PLANNER POCT LACTIC ACID STAT 01/11/2025 5:39 PM ACCOUNT PLANNER POCT CALCIUM, IONIZED STAT 01/11/2025 5:39 PM ACCOUNT PLANNER POCT VBG/NA/K/GL STAT 01/11/2025 5:39 PM ACCOUNT PLANNER from Last 3 Months Results * XR C ARM EXTREMITY RT (01/12/2025 9:05 AM ACCOUNT PLANNER) Anatomical Region Laterality Modality Extremity Computed Radiogr aphy 01/12/2025 9:23 AM ACCOUNT PLANNER Impressions 01/12/2025 9:24 AM ACCOUNT PLANNER impression: 2 images saved. Fluoroscopy time 36 seconds. Imaging guidance provided during open reduction internal fixation surgery along the proximal ulna Narrative 01/12/2025 9:24 AM ACCOUNT PLANNER EXAMINATION: Intraoperative imaging right elbow. INDICATION: Surgical repair. Findings/ Procedure Note Deven Anderson MD - 01/12/2025 EXAMINATION: Intraoperative imaging right elbow. INDICATION: Surgical repair. Findings/ IMPRESSION impression: 2 images saved. Fluoroscopy time 36 seconds. Imaging guidance providedduring open reduction internal fixation surgery along the proximal ulna Rangel Kebede MD XRAY ORDERABLE Final Re sult * Intubation (01/12/2025 8:01 AM ACCOUNT PLANNER) Narrative Wero Braga CRNA - 01/12/2025 8:01 AM ACCOUNT PLANNER Wero Braga CRNA 01/12/2025 8:36 AM Intubation Location: OR Procedural Details: Direct Vision, Atraumatic, Dentition Intact, Preox and Pharynx Clear Entry Site: Oral Laryngoscope size: 4 Laryngoscope type: Mac Tube size: 7.5 Maskability: moderate and oral airway Ease: easy Cormack-Lehane: grade I - visualization of entire laryngeal aperture (95%) Tube type: Single Lumen and Cuffed Performed by: Wero Braga CRNA, CRNA Post-procedure assessment: BBS and EtCO2 + Cuff inflated: yes ETT to lip: 23 cm Pt. Eyes taped prior to DVL. Pt. Mouth, lips, teeth, and gums remain intact per preop state. Pt. Lips and tongue free of pressure after tube secured.. Jerardo Rice MD AN BLOCKS Final Re sult * (ABNORMAL) Basic Metab Profile (01/12/2025 5:02 AM ACCOUNT PLANNER) Sodium 142 136 - 145 mmol/L 01/12/2025 6:27 AM [facility] Potassium 4.3 3.4 - 5.1 mmol/L 01/12/2025 6:27 AM [facility] Comment:Interpret with cauti on, specimen slightly hemolyzed. Results may be affected. Chloride 112(H) 98 - 108 mmol/L 01/12/2025 6:27 AM [facility] Carbon Dioxide 23 20 - 31 mmol/L 01/12/2025 6:27 AM [facility] BUN (Urea Nitro) 12 9 - 23 mg/dL 01/12/2025 6:27 AM [facility] Creatinine 1.41(H) 0.73 - 1.18 mg/dL 01/12/2025 6:27 AM [facility] Est GFR (CKD-EPI) >60.00 >60.00 mL/min/1. 73m2 01/12/2025 6:27 AM [facility] Comment:Calculation based on the Chronic Kidney Disease Epidemiology Collaboration (CKD-EPI 2020) equation refit without adjustment for race. Glucose 87 74 - 106 mg/dL 01/12/2025 6:27 AM [facility] Calcium, Serum 8.7 8.7 - 10.4 mg/dL 01/12/2025 6:27 AM [facility] Anion Gap 7.0 0.0 - 15.0 mmol/L 01/12/2025 6:27 AM [facility] Blood 01/12/2025 5:02 AM ACCOUNT PLANNER 01/12/2025 5:54 AM ACCOUNT PLANNER Flo Lawson MD CHEMISTRY ORDERABLE Final R esult Performing Organization Address City/[facility] Co de Phone Number [facility] [address] [place] [address] [place], [place] [id number] * Extra Tube-EDTA (Lab Use Only) (01/12/2025 5:00 AM ACCOUNT PLANNER) Only the most recent of2 resultswithin the time period is included. Blood 01/12/2025 5:00 AM ACCOUNT PLANNER 01/12/2025 6:12 AM ACCOUNT PLANNER Rangel Kebede MD HEMATOLOGY ORDERABLE Fin al Result Performing Organization Address City/[facility]/ZIP Co de Phone Number [facility] [address] [facility] [place] [address] * CT EXTREM UPPER RT W/O CON (01/11/2025 10:29 PM ACCOUNT PLANNER) Anatomical Region Laterality Modality Upper Extremity Computed Tomogra phy 01/11/2025 10:5 4 PM ACCOUNT PLANNER Impressions 01/11/2025 10:58 PM ACCOUNT PLANNER IMPRESSION: 1. Comminuted, displaced fracture of the olecranon with large elbow joint effusion. Overlying soft tissue injury with scattered soft tissue gas. No intra-articular gas. 2. Advanced degenerative changes of the elbow. REPORT SIGNED BY DR. Gentry Mayorga Narrative 01/11/2025 10:58 PM ACCOUNT PLANNER EXAM: CT EXTREM UPPER RT W/O CON DATE: 01/11/2025 22:25 [...] Gentry Mayorga MD - 01/11/2025 EXAM: CT [facility] RT W/O CON DATE: 01/11/2025 22:25 CLINICAL [...] / Pelvis W Contrast (01/11/2025 6:23 PM ACCOUNT PLANNER) Anatomical Region Laterality Modality Chest, ABD/Pelvis Computed Tomog cr 01/11/2025 6:21 PM ACCOUNT PLANNER Impressions 01/11/2025 6:29 PM ACCOUNT PLANNER IMPRESSION: 1. Findings consistent with a mild superficial contusion over the mid to lower right anterior abdominal wall with mild subcutaneous edema in this region. No discrete hematoma. 2. Otherwise, no evidence of thoracic, abdominal or pelvic acute traumatic injury. 3. Mild colonic diverticulosis without evidence of acute diverticulitis. REPORT SIGNED BY DR. Singh Javier 01/11/2025 6:29 PM ACCOUNT PLANNER EXAM: CT TRAUMA CHEST/ABD/PEL W CON DATE: [...] evidence of acutediverticulitis. REPORT SIGNED BY DR. Signh Vergara us Keke Goodman MD CT ORDERABLE Final Resu lt * CT Reconstruction Spine Lumbar (01/11/2025 6:23 PM ACCOUNT PLANNER) Anatomical Region Laterality Modality Spine Computed Tomogra phy 01/11/2025 6:31 PM ACCOUNT PLANNER Impressions 01/11/2025 6:32 PM ACCOUNT PLANNER IMPRESSION: 1. No evidence of a fracture, subluxation or dislocation. 2. Severe degenerative changes at L5-S1. REPORT SIGNED BY DR. iSngh Vergara Narrative 01/11/2025 6:32 PM ACCOUNT PLANNER EXAM: CT RECONSTRUCTION SPINE LUMBAR DATE: 01/11/2025 [...] REPORT SIGNED BY DR. 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 Assistant: [id number] : 1975 Requested By: KEKE GOODMAN MD Order Number: [id number] Reading MD: KEKE GOODMAN MD Measurements Intervals [place] Rate: 85 P: 61 CA: 126 QRS: 33 QRSD: 94 T: 4 QT: 334 QTc: 376 Interpretive Statements SINUS RHYTHM POSSIBLE LEFT ATRIAL ENLARGEMENT BORDERLINE ECG No previous ECG available for comparison Electronically Signed On 01-11-2025 18:24:08 ACCOUNT PLANNER by KEKE GOODMAN MD 01/11/2025 6:22 PM ACCOUNT PLANNER us Keke Goodman MD EKG ORDERABLE Final Resu lt Cruz RETANA [address] [place] [address] * CT Reconstruction Spine Thoracic (01/11/2025 6:22 PM ACCOUNT PLANNER) Anatomical Region Laterality Modality Spine Computed Tomogra phy 01/11/2025 6:29 PM ACCOUNT PLANNER Impressions 01/11/2025 6:30 PM ACCOUNT PLANNER IMPRESSION: 1. No evidence of an acute fracture, subluxation or dislocation. 2. Multilevel degenerative changes of the thoracic spine. 3. Old healed left lateral rib fractures. REPORT SIGNED BY DR. SINGH VERGARA Narrative 01/11/2025 6:30 PM ACCOUNT PLANNER EXAM: CT RECONSTRUCTION SPINE THORACIC DATE: 01/11/2025 [...] REPORT SIGNED BY DR. SINGH VERGARA us Keke Goodman MD CT ORDERABLE Final Resu lt * XRAY TIBIA FIBULA LEFT (01/11/2025 6:14 PM ACCOUNT PLANNER) Anatomical Region Laterality Modality Extremity Computed Radiogr aphy 01/11/2025 6:3 8 PM ACCOUNT PLANNER Impressions 01/11/2025 6:38 PM ACCOUNT PLANNER IMPRESSION: Intact left tibia and fibula. REPORT SIGNED BY DR. Austen Gage Narrative 01/11/2025 6:38 PM ACCOUNT PLANNER EXAM: XR TIBIA & FIBULA LT DATE: [...] REPORT SIGNED BY DR. Austen Gage us Keke Goodman MD XRAY ORDERABLE Final Resu lt * XRAY WRIST LEFT (01/11/2025 6:12 PM ACCOUNT PLANNER) Anatomical Region Laterality Modality Extremity Computed Radiogr aphy 01/11/2025 6:36 PM ACCOUNT PLANNER Impressions 01/11/2025 6:38 PM ACCOUNT PLANNER IMPRESSION: No definite osseous injuries are seen at the left wrist. REPORT SIGNED BY DR. Austen Gage Narrative 01/11/2025 6:38 PM ACCOUNT PLANNER EXAM: XR WRIST LT 3 VIEW DATE: [...] REPORT SIGNED BY DR. Austen Gage us Keke Goodman MD XRAY ORDERABLE Final Resu lt * XRAY ELBOW RIGHT (01/11/2025 6:10 PM ACCOUNT PLANNER) Anatomical Region Laterality Modality Extremity Computed Radiogr aphy 01/11/2025 6:38 PM ACCOUNT PLANNER Impressions 01/11/2025 6:40 PM ACCOUNT PLANNER IMPRESSION: Probable acute, nondisplaced fracture involving the proximal aspect of the olecranon process. REPORT SIGNED BY DR. Austen Gage Narrative 01/11/2025 6:40 PM ACCOUNT PLANNER EXAM: XR ELBOW RT 3 VIEW DATE: [...] process. REPORT SIGNED BY DR. Austen Gage Keke Goodman MD XRAY ORDERABLE Final Resu lt * CT Spine Cervical W/O Contrast (01/11/2025 5:56 PM ACCOUNT PLANNER) Anatomical Region Laterality Modality Spine Computed Tomogra phy 01/11/2025 6:07 PM ACCOUNT PLANNER Impressions 01/11/2025 6:09 PM ACCOUNT PLANNER IMPRESSION: No evidence of cervical spine fracture or subluxation. REPORT SIGNED BY DR. Austen Gage Narrative 01/11/2025 6:09 PM ACCOUNT PLANNER EXAM: CT SPINE CERVICAL W/O CON DATE: [...] subluxation. REPORT SIGNED BY DR. Austen Gage Keke Goodman MD CT ORDERABLE Final Resu lt * CT Head W/O Contrast W/O 3D (01/11/2025 5:56 PM ACCOUNT PLANNER) Anatomical Region Laterality Modality Head Computed Tomogra phy 01/11/2025 5:58 PM ACCOUNT PLANNER Impressions 01/11/2025 5:59 PM ACCOUNT PLANNER IMPRESSION: Right frontal scalp soft tissue swelling and laceration. No skull fracture seen. No intracranial bleed. REPORT SIGNED BY DR. Ambrosio Willard Narrative 01/11/2025 5:59 PM ACCOUNT PLANNER EXAM: CT HEAD (without contrast) DATE: 01/11/2025 [...] REPORT SIGNED BY DR. Ambrosio Willard us Keke Goodman MD CT ORDERABLE Final Resu lt * Extra Tube-Coag (Lab Use Only) (01/11/2025 5:42 PM ACCOUNT PLANNER) Blood BLOOD SPECIMEN / Unknown 01/11/2025 5:42 PM ACCOUNT PLANNER 01/11/2025 5:47 PM ACCOUNT PLANNER us Keke Goodman MD COAGULATION ORDERABLE Geetha l Result Performing Organization Address City/[facility] Co de Phone Number [facility] [address] [place] [phone] * Extra Tube-Blood Bank (Lab Use Only) (01/11/2025 5:42 PM ACCOUNT PLANNER) Blood BLOOD SPECIMEN / Unknown 01/11/2025 5:42 PM ACCOUNT PLANNER 01/11/2025 5:47 PM ACCOUNT PLANNER Keke Goodman MD BLOOD BANK ORDERABLE Final Result Performing Organization Address City/[facility] Co de Phone Number [facility] [address] [place] [address] * Extra Tube-SST (Lab Use Only) (01/11/2025 5:42 PM ACCOUNT PLANNER) Blood BLOOD SPECIMEN / Unknown 01/11/2025 5:42 PM ACCOUNT PLANNER 01/11/2025 5:47 PM ACCOUNT PLANNER us Keke Goodman MD CHEMISTRY ORDERABLE Final Result [facility] [address] [place] [address] * ABORh Confirm (Lab Use Only) (01/11/2025 5:42 PM ACCOUNT PLANNER) Group and Rh O Positive 01/11/2025 6:32 PM ACCOUNT PLANNER [facility] Blood 01/11/2025 5:42 PM ACCOUNT PLANNER 01/11/2025 6:13 PM ACCOUNT PLANNER us Keke Goodman MD BLOOD BANK ORDERABLE Final Result Performing Organization Address City/[facility]/ZIP Co de Phone Number [facility] [address] [place] [phone] [place] [address] [address] [place] [address] * Type and Screen (01/11/2025 5:42 PM ACCOUNT PLANNER) [facility] Group and Rh O Positive 01/11/2025 6:42 PM ACCOUNT PLANNER [facility] Antibody Screen Negative 01/11/2025 6:42 PM ACCOUNT PLANNER [facility] Blood BLOOD SPECIMEN / Unknown 01/11/2025 5:42 PM ACCOUNT PLANNER 01/11/2025 5:47 PM ACCOUNT PLANNER us Keke Goodamn MD BLOOD BANK ORDERABLE Edite d Result - Final [facility] [address] [place] [address] [facility] [address] [place] [address] * Alcohol (ETOH), Plasma (01/11/2025 5:42 PM ACCOUNT PLANNER) [facility] ALCOHOL (ETOH), PLASMA <3 <3 mg/dL 01/11/2025 6:12 PM ACCOUNT PLANNER [facility] Blood BLOOD SPECIMEN / Unknown 01/11/2025 5:42 PM ACCOUNT PLANNER 01/11/2025 5:47 PM ACCOUNT PLANNER us Keke Goodman MD CHEMISTRY ORDERABLE Final Result Performing Organization Address [facility]/ZIP Co de Phone Number [facility] [address] [address] * Protime/INR (01/11/2025 5:42 PM ACCOUNT PLANNER) INR 1.0 0.9 - 1.2 01/11/2025 6:04 PM ACCOUNT PLANNER [facility] Blood BLOOD SPECIMEN / Unknown 01/11/2025 5:42 PM ACCOUNT PLANNER 01/11/2025 5:47 PM ACCOUNT PLANNER us Keke Goodman MD COAGULATION ORDERABLE Geetha l Result Performing Organization Address [facility]/ZIP Co de Phone Number [facility] [address] [address] * Platelet Count (01/11/2025 5:42 PM ACCOUNT PLANNER) Platelet Count 273 150 - 400 K/UL 01/11/2025 5:56 PM ACCOUNT PLANNER [facility] Blood BLOOD SPECIMEN / Unknown 01/11/2025 5:42 PM ACCOUNT PLANNER 01/11/2025 5:47 PM ACCOUNT PLANNER us Keke Goodman MD HEMATOLOGY ORDERABLE Final Result Performing Organization Address City/[facility]/ZIP Co de Phone Number [facility] [address] [address] * Hemoglobin (01/11/2025 5:42 PM ACCOUNT PLANNER) Hemoglobin 18.0 14.0 - 18.0 gm/dL 01/11/2025 5:56 PM ACCOUNT PLANNER [facility] Blood BLOOD SPECIMEN / Unknown 01/11/2025 5:42 PM ACCOUNT PLANNER 01/11/2025 5:47 PM ACCOUNT PLANNER Keke Goodman MD HEMATOLOGY ORDERABLE Final Result Performing Organization Address [facility] Co de Phone Number [facility] [address] [address] * Extra Tube PST (Lab Use Only) (01/11/2025 5:42 PM ACCOUNT PLANNER) Blood BLOOD SPECIMEN / Unknown 01/11/2025 5:42 PM ACCOUNT PLANNER 01/11/2025 5:47 PM ACCOUNT PLANNER Keke Goodman MD CHEMISTRY ORDERABLE Final Result Performing Organization Address [facility] Number [facility] [address] [address] * POCT Lac (01/11/2025 5:39 PM ACCOUNT PLANNER) POCT LACTIC ACID 1.1 0.7 - 2.1 mmol/L 01/11/2025 5:42 PM ACCOUNT PLANNER [facility] 01/11/2025 5:39 PM ACCOUNT PLANNER 01/11/2025 5:42 PM ACCOUNT PLANNER [facility] POINT OF CARE TEST RESULTS F inal Result Performing Organization Address [facility] Number [facility] [address] [address] * (ABNORMAL) POCT CREATININE (01/11/2025 5:39 PM ACCOUNT PLANNER) POCT Creatinine 1.6(H) 0.7 - 1.3 mg/dL 01/11/2025 5:42 PM ACCOUNT PLANNER [facility] 01/11/2025 5:39 PM ACCOUNT PLANNER 01/11/2025 5:42 PM ACCOUNT PLANNER [facility] POINT OF CARE TEST RESULTS F inal Result Performing Organization Address [facility] Co de Phone Number [facility] [place]IC [place] [address] * (ABNORMAL) POCT VBG/Na/K/Glu (01/11/2025 5:39 PM ACCOUNT PLANNER) Pathologist [facility] POCT pH Venous 7.33 7.30 - 7.40 01/11/2025 5:42 PM [facility] POCT pCO2 Venous 47 36 - 51 mm Hg 01/11/2025 5:42 PM [facility] POCT pO2 Venous 49(H) 35 - 45 mm Hg 01/11/2025 5:42 PM [facility] POCT HCO3 VENOUS 25 22 - 29 mmol/L 01/11/2025 5:42 PM [facility] POCT BASE EXCESS -2.0 -3.0 - 2.0 mmol/L 01/11/2025 5:42 PM [facility] POCT CSO2 81.0(L) 92.0 - 98.0 %SAT 01/11/2025 5:42 PM [facility] POCT cTCO2 26.0 mmol/L 01/11/2025 5:42 PM [facility] POCT SODIUM 147(H) 133 - 144 mmol/L 01/11/2025 5:42 PM [facility] POCT POTASSIUM 4.4 3.5 - 5.0 mmol/L 01/11/2025 5:42 PM [facility] POCT Glucose 153(H) 60 - 100 mg/dL 01/11/2025 5:42 PM [facility] 01/11/2025 5:39 PM ACCOUNT PLANNER 01/11/2025 5:42 PM [facility] us [facility] POINT OF CARE TEST RESULTS F inal Result [facility] [place] [address] * POCT Ca, Ionized (01/11/2025 5:39 PM ACCOUNT PLANNER) Pathologist [facility] POCT CA IONIZED 1.31 1.13 - 1.32 mmol/L 01/11/2025 5:42 PM ACCOUNT PLANNER [facility] 01/11/2025 5:39 PM ACCOUNT PLANNER 01/11/2025 5:42 PM ACCOUNT PLANNER [facility] POINT OF CARE TEST RESULTS F inal Result Performing Organization Address City/[facility]/ZIP Co de Phone Number [facility] [address] [place] [address] * POCT Chloride (01/11/2025 5:39 PM ACCOUNT PLANNER) POCT CHLORIDE 108 99 - 111 mmol/L 01/11/2025 5:42 PM ACCOUNT PLANNER [facility] 01/11/2025 5:39 PM ACCOUNT PLANNER 01/11/2025 5:42 PM ACCOUNT PLANNER [facility] POINT OF CARE TEST RESULTS F inal Result Performing Organization Address [facility] Phone Number [facility] [address] [place] [address] from Last 3 Months Insurance [facility] Advance Directives For more information, please contact: [phone] * Full Code (Latest Code Status on File) Date Activated Date Inactivated Comments 01/11/2025 7:25 PM 01/12/2025 10:13 PM Question Answer Comments How was code status determined? Patient Care Teams Vinyl Dipper Relationship Specialty Start Date End Date Doctor, No No ad PCP - General Radiology 01/11/25
--- OUTSIDE RECORDS SUMMARY | 2025-01-15 11:57 | XMS_ITS | Encounter Summary ---
Author Organization [facility] Address [address] [place] [address] Care Team Providers Care Piece Maker Name Role Phone Doctor, No Primary Care Provider Unavailabl e Encounter Details Date Type Department Care Team (Latest Contact Info) Description 01/11/2025 Travel Social History Tobacco Use Types Packs/Day Years [...] No 01/11/2025 Housing Stability Vital Sign Answer Amc e Recorded In the last 12 months, was t here a time when you were not able to pay the mortgage or rent on time? No 01/11/2025 In the past 12 months, how m any times have you moved where you were living? 1 01/11/2025 At any time in the past [address] [facility], were you homeless or living in a halfway (including now)? No 01/11/2025 [facility] Utilities Answer Date Recorded In the past 12 months has th e electric, gas, oil, or water company threatened to shut off services in your home? No 01/11/2025 Sex and Gender Information Value Date Recorded Sex Assigned at Not on file Legal Sex Male 5:32 PM [employer] Gender Identity Not on file Sexual Orientation Not on file documented as of this encounter Plan of Treatment Not on file documented as of this encounter Visit Diagnoses Not on filedocumented in this encounter Care Teams Piece Maker Relationship Specialty Start Date End Date Doctor, No No ad PCP - General Radiology 01/11/25 documented as of this encounter
[2025-01-15 12:02] VITALS: BP 139/88; PULSE 110; RESP 18; TEMP 36.6; O2SAT 96; BMI 30.9
--- NOTE | 2025-01-15 12:29 | CRLHL7_ITS ---
For Patients: As a result of the Century Cures Act, medical imaging exams and procedure reports are released immediately into your electronic medical record. You may view this report before your referring provider. If you have questions, please contact your health care provider. INDICATION: Visual changes, head injury last Tuesday. COMPARISON: None. TECHNIQUE: CT of the brain / head without intravenous contrast. Multiplanar axial, coronal, and sagittal reformats were reconstructed. FINDINGS: No intracranial hemorrhage. Normal appearance of the white matter. No acute or subacute cortically based infarct. No cerebral edema. No mass or mass effect. Normal ventricles. No skull fractures. No worrisome focal bone lesion. IMPRESSION: Normal head CT. Please note that all CT scans at this facility use dose modulation, iterative reconstruction, and/or weight-based dosing when appropriate to reduce radiation dose to as low as reasonably achievable. Dictated by Radha Haq MD @ 01/15/2025 1:01:39 PM (Electronically Signed)
[2025-01-15 13:47] VITALS: BP 139/90; PULSE 106; RESP 18; O2SAT 95
--- NOTE | 2025-01-15 14:07 | ED_ITS ---
HPI - General Adult General Chief complaint: Head Injury/Pain Stated complaint: concussion Time Seen by Provider: 01/15/25 13:48 History of Present Illness HPI narrative: This 49-year-old male comes in reporting blurry vision. He fell from a ladder a couple days ago and had loss of consciousness and went to [facility] where he had surgery on his right arm. He had a full workup then including CT imaging of his head and spine. He was discharged and now does not report a headache but states that his vision has been blurry. He is able to read a sign across the room but states that his vision is not as clear as it has been and prior to this injury. He does not report any neurologic deficits. Related Data Home Medications ?Medication ?Instructions ?Recorded ?Confirmed No Known Home Medications 01/15/2512/23 Allergies Allergy/AdvReac Type Severity Reaction Status Date / Time triamcinolone Allergy Severe Rash Verified 01/15/25 12:06 bupropion (From Wellbutrin) AdvReac Intermediate Hives Verified 01/15/25 12:06 Review of Systems Status of ROS: Reports: 10 or more systems reviewed and unremarkable except as noted in History and below Narrative: Constitutional: No fevers, no weight gain or loss. Eyes: No discharge. He reports blurry vision. HENT: No congestion, no sore throat, no ear pain. Cardiovascular: No chest pain, no palpitations. Respiratory: No shortness of breath, no wheezes, no cough. Gastrointestinal: No abdominal pain, no vomiting, no diarrhea. Genitourinary: No dysuria, no hematuria. Musculoskeletal: Normal range of motion. Left upper extremity injury. Skin: No rashes, no pruritis. Neurological: No dizziness, weakness, sensory change, speech change. Endo/Heme/Allergies: No bruising or bleeding. No polydipsia. Pysch: no suicidality, no anxiety, no insomnia. All other systems reviewed and are negative. [facility] Medical History (Updated 01/15/25 @ 14:12 by Jesus Alberto Pacheco MD) Erectile dysfunction ?N52.9 - Male erectile dysfunction, unspecified (ICD-10) Osteoarthritis of right elbow ?M19.021 - Primary osteoarthritis, right elbow (ICD-10) Atopic dermatitis ?L20.9 - Atopic dermatitis, unspecified (ICD-10) Primary hypertension ?I10 - Essential (primary) hypertension (ICD-10) ADHD (attention deficit hyperactivity disorder) ?F90.9 - Attention-deficit hyperactivity disorder, unspecified type (ICD-10) Surgical History (Updated 05/31/23 @ 10:21 by Janice De Los Santos) History of incision and drainage (05/01/17) ?Z98.890 - Other specified postprocedural states (ICD-10) Family History (Updated 06/27/23 @ 03:13 by Rashel Heart MD) Father Heart disease Prostate cancer Stroke Brother Heart disease Brother Heart disease Paternal Grandfather Stroke Social History (Updated 06/27/23 @ 03:13 by Rashel Heart MD) 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: , 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, 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, 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 pack 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 day 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 for 35 years, drinks 24 beers per week What is your current living situation?: I presently have a place to live Problems where you live: no known problems In the past 12 months, utilities in danger of being shut off: no In past 12 months, lack of transportation kept you from medical appts, meetings, work, or getting things needed for daily living: no In the past 12 mos, have been you worried that your food would run out before you had money to buy more?: never true In the past 12 mos, the food you bought just didn't last and you didn't have money to buy more?: never true Smoking Status: Current every day smoker How often does anyone, including family, friends and others, physically hurt you : never How often does anyone, including family, friends and others, insult or talk down to you: never How often does anyone, including family, friends and others, threaten you with harm: never How often does anyone, including family, friends and others, scream or curse at you: never Exam Narrative: Exam Narrative: Constitutional: Well-developed, well-nourished, no acute distress. HEENT: 10 sutures in a head injury. No sign of infection or drainage or other complication. Neck: Normal range of motion. Nontender. Supple. Heart: Regular. No murmurs. Normal rate. Intact distal pulses. Lungs: Clear to auscultation. No chest discomfort. No wheezes, rhonchi, or rales. Abdomen: Normal bowel sounds. Nontender. No rebound tenderness. Genitalia: Deferred. Back: No midline tenderness. Normal range of motion. Extremities: Normal range of motion. No injury. Skin: Intact. No rash. Warm. No erythema or pallor. Neurologic: No altered sensation. No weakness. Alert and oriented. Psychiatric: No suicidality. No anxiety or depression. No insomnia. Nursing notes and vitals signs are reviewed. Const: Vital Signs, click to edit/add: Vital Signs - 24 hr 01/15/25 12:02 01/15/25 13:47 Temperature 97.9 F Pulse Rate [Pulse Oximeter] 110 H 106 H Respiratory Rate 18 18 Blood Pressure [Ri t Upper Arm] 139/88 139/90 H Pulse Oximetry 96 95 Oxygen Delivery Me thod Room Air Course Vital Signs Vital signs: Initial Vital Signs Temperature 97.9 F 01/15/25 12:02 Temperature Source Temporal Artery Scan 01/15/25 12:02 Pulse Rate 110 H 01/15/25 12:02 Respiratory Rate 18 01/15/25 12:02 Blood Pressure 139/88 01/15/25 12:02 Blood Pressure Mean 105 01/15/25 12:02 Blood Pressure Position Sitting 01/15/25 12:02 Pulse Oximetry 96 01/15/25 12:02 Vital Signs Temperature 97.9 F 01/15/25 12:02 Pulse Rate 110 H 01/15/25 12:02 Respiratory Rate 18 01/15/25 12:02 Blood Pressure 139/88 01/15/25 12:02 Pulse Oximetry 96 01/15/25 12:02 Temperature 97.9 F 01/15/25 12:02 Pulse Rate 106 H 01/15/25 13:47 Respiratory Rate 18 01/15/25 13:47 Blood Pressure 139/90 H 01/15/25 13:47 Pulse Oximetry 95 01/15/25 13:47 Oxygen Delivery Method Room Air 01/15/25 13:47 Medical Decision Making MDM Narrative Medical decision making narrative: This patient had a fall a couple days ago and was treated and released from [facility]. He comes in because of blurry vision. He does not report a headache and has no other neurologic deficits. The CT scan is obtained in the event that he may have had a delayed bleed. CT imaging shows no acute findings. This was reassuring to the patient. He did have loss of consciousness and is experiencing symptoms from a concussion. I had discussion with him regarding prognosis and recovery from a concussion. He is okay to be discharged home to resume current plans. Discharge Plan Discharge Clinical Impression: Closed head injury, Postconcussion syndrome Patient Disposition: Home, Self-Care Condition: Stable Additional Instructions: Continue current plans. Activity as tolerated. Follow up with MD as scheduled or return if worsening. Prescriptions: No Action No Known Home Medications Follow Up/Referrals: Rashel Heart MD [Primary Care Provider, Family Practice] Stand Alone Forms: [employer] Info Instructions
== END 2025-01-15 14:30 | disposition home or self-care (01) ==
LOC: ED 14:32
PROVIDERS: Emergency Provider Emergency Medicine Emergency Medical Services; PCP Family Medicine
DX: S09.90XA Unspecified injury of head, initial encounter (principal); F07.81 Postconcussional syndrome; W11.XXXA Fall on and from ladder, initial encounter
CPT/HCPCS: 70450; 99284